=== PATIENT | male | born 1960 | race Two or more races ===

== ENCOUNTER 2021-01-07 09:55 | Outpatient (REF) | payer SELFPAY | END 2021-01-07 09:56 | disposition home or self-care (01) | LOC: HO.SCI 09:55 | PROVIDERS: Visit Provider Internal Medicine Nephrology | DX: Z13.89 Encounter for screening for other disorder (principal) ==

== ENCOUNTER 2021-01-21 15:58 | Outpatient (REF) | payer OTHER, SELFPAY ==
--- NOTE | ~2021-01-21 | US_ITS ---
EXAMINATION: US RETROPERITONEAL COMPLETE (RENAL) CLINICAL INFORMATION: Chronic kidney disease, stage 3. COMPARISON: None TECHNIQUE: Real-time imaging of the kidneys and bladder. FINDINGS: RIGHT KIDNEY: 10.0 x 5.1 x 4.2 cm (SAG x AP x TRV). The kidney is normal in size, contour, and echogenicity. Renal cortical thickness is normal. There is an 8 x 8 x 7 mm cyst in the lower pole. No renal calculi or hydronephrosis. LEFT KIDNEY: 8.7 x 5.1 x 4.5 cm (SAG x AP x TRV). The kidney is normal in size, contour, and echogenicity. Renal cortical thickness is normal. No calculi or focal parenchymal lesions. No hydronephrosis. BLADDER: Well distended. The bladder wall is slightly thickened. No stone or mass is seen. Bilateral ureteral jets are demonstrated. Prevoid bladder volume is 157 mL. Postvoid bladder volume is 45 mL. The prostate gland measures 4.3 x 3.4 x 4 cm. Prostate volume is 30.6 mL. There is central calcification in the prostate gland. US/US retroperitoneal comp IMPRESSION: Small right renal cyst. Slightly thickened bladder wall. 45 mL post void bladder residual. Slightly enlarged prostate gland.
== END 2021-01-21 15:59 | disposition home or self-care (01) ==
LOC: HO.US 15:58
PROVIDERS: Visit Provider Internal Medicine Nephrology
DX: I12.9 Hypertensive chronic kidney disease with stage 1 through stage 4 chronic kidney disease, or unspecified chronic kidney disease (principal); N18.32 Chronic kidney disease, stage 3b
CPT/HCPCS: 76770

== ENCOUNTER 2025-05-29 13:39 | Outpatient (AMB) | payer OTHER, SELFPAY ==
--- NOTE | 2025-05-29 13:44 | A.OFFVIS_ITS ---
Intake Visit Reasons: urinary frequency/ nocturia Intake Note: Patient is present for URINARY FREQUENCY/ NOCTURIA Urology Medication:TAMSULOSIN Antibiotic Allergy:NONE Blood Thinner:ASPIRIN,APIXABAN TODAY'S PVR:0ML'S Patent Prosecution Paralegal Required: Yes Patent Prosecution Paralegal Services: Patent Prosecution Paralegal Present Patent Prosecution Paralegal Name: Dariel [id number] Allergies No Known Allergies Allergy (Verified 05/29/25 14:42) Medication List - Last Reconciled 05/29/25 by MATT BronsonP- amlodipine 10 mg PO DAILY apixaban (Eliquis) 2.5 mg PO BID aspirin 1 tab PO DAILY atorvastatin 40 mg PO DAILY clonidine HCl mg PO gabapentin 300 mg PO TID labetalol mg PO polyethylene glycol 3350 grams PO BID solifenacin (Vesicare) 5 mg PO DAILY 30 days HPI Comments Details: Alexander is a pleasant 65-year-old Setswana-speaking male patient of Dr. Zambrano. He has a past medical history of hypertension, insomnia, ED, fatty liver disease, dissection of thoracic aorta, history of AAA repair, coronary artery disease, DVT, dyslipidemia, spinal cord injury, constipation, stage 3 chronic kidney disease, thrombocytopenia, renal osteodystrophy, anemia, and hyperlipidemia. He presents to the office today as a new patient for ongoing lower urinary tract symptoms he has been experiencing as well as erectile dysfunction. In di scussion with the patient today he reports over the last year he has been experiencing increased episodes of nocturia up to 10 times per night. He reports having followed up with his PCP and recommendations were made for urology referral. He also reports noting erectile dysfunction. He reports he is unable to obtain and or maintain an erection and feels this has been present for many years. Unable to obtain urine for urinalysis today however PVR 0 mL. He reports starting Flomax with his director instructional material January of this year and has not found this helpful. He also describes episodes of urinary urgency throughout the day however feels this is more manageable in comparison to his increased episodes of nocturia. When asked he does report a history of snoring as well as fatigue upon wakening. We did discussed obtaining sleep study for further assessment evaluation as well as retroperitoneal ultrasound. We also discussed obtaining PSA and testosterone for further assessment evaluation. We did discussed lifestyle modifications to assist with ED given patient's recent history cardiac surgery earlier this year in [employer] for repair of his aorta. He reports he is due to follow-up again with cardiology as he might need another surgical procedure. He denies hematuria, dysuria, foul smelling urine, changes to urinary stream, flank pain, fever, and or chills. We did discussed at length potential causes of lower urinary tract symptoms patient is experiencing as well as erectile dysfunction. We discussed further treatment options of these urological conditions and risks and benefits of these treatment options. All questions were answered. He otherwise offers no other issues or concerns at this time. [facility] Medical History (Updated 05/29/25 @ 14:59 by Nghia Carpenter [facility]) DVT, lower extremity DVT of upper extremity (deep vein thrombosis) Paralysis of both lower limbs Urinary incontinence Coronary artery disease involving [place] heart with angina pectoris Dissection of thoracic aorta Decreased GFR Fatty liver disease, nonalcoholic Insomnia Essential hypertension Surgical History (Updated 05/29/25 @ 14:59 by Nghia Carpenter CCM) History of AAA (abdominal aortic aneurysm) repair H/O colonoscopy Review of Systems Const All systems reviewed & are unremarkable except as noted in HPI and below Physical Exam Const General: cooperative, comfortable, no acute distress, well developed, alert and awake Orientation/consciousness: patient oriented x3 Limitations: ambulation with cane HEENT Head: Yes normal to inspection, Yes normocephalic and Yes atraumatic Ears: hearing grossly normal bilaterally Eyes General: appearance normal, both eyes and all related structures Neck Neck: Yes normal visual inspection and Yes trachea midline Chest Chest palpation & inspection: normal inspection of the chest Resp Effort & Inspection: normal respiratory effort and able to speak in complete sentences Cardio Rate: regular rate GI Inspection: Yes normal to inspection General: Yes no CVA tenderness Back/Spine/Pelvis Back: no CVA tenderness Skin General skin exam: no rashes or lesions noted Neuro General: patient oriented x3 Extrem Other: Bilateral lower extremity edema 1+. Sequentials present General: Yes normal to inspection Psych Appearance: grossly normal and well kempt Mental Status: mental status grossly normal Speech and movement: Normal speech and movement present and Clear speech present Affect: normal affect Attitude: cooperative Thought process: Normal thought process present Thought content: Normal thought content present Insight: Fair insight present (Psych) Judgement: Fair judgement present (Psych) Office Procedures Post Void Residual Post Residual Void Post Void Residual (PVR): 0 61537-[id number] Void Residual by ultrasound Assessment & Plan Assessment & Plan (1) Nocturia: Code(s): R35.1 - Nocturia Category: Medical (2) Urinary urgency: Code(s): R39.15 - Urgency of urination Category: Medical (3) Erectile dysfunction: Code(s): N52.9 - Male erectile dysfunction, unspecified Category: Medical Plan Unable to obtain urine for urinalysis today as patient unable to void however PVR 0 mL. We did discussed potential causes of nocturia as well as urinary urgency. We discussed the importance of limiting fluids 2-3 hours prior to bed to decrease episodes of nocturia. Will obtain retroperitoneal ultrasound for further assessment evaluation. Will obtain PSA and testosterone for further assessment evaluation. We discussed importance of elevating legs in the late evening in relation to nocturia. Will obtain sleep study for further assessment evaluation. Stop Flomax. Start VESIcare as discussed and prescribed. All questions were answered. Follow-up in 1-3 months with imaging, labs, and PVR; or sooner with any issues, concerns, and or questions. Orders: Orders AMB Urinalysis Automated Today Z13.9 - Encounter for screening, unspecified US retroperitoneal comp Today R35.1 - Nocturia, R39.15 - Urgency of urination RT home sleep study Today R06.83 - Snoring, R35.1 - Nocturia Prostate Specific Antigen Today R35.1 - Nocturia, R39.15 - Urgency of urination Testosterone, Free/Total Today N52.9 - Male erectile dysfunction, unspecified, R35.1 - Nocturia, R39.15 - Urgency of urination Medications: New solifenacin (Vesicare) 5 mg PO DAILY 30 tabs 3RF 30 days Patient Instructions: The patient had an opportunity to ask questions regarding the treatment plan. All questions were answered. Physical exam, labs, and imaging were discussed and reviewed in detail. As well as risks, benefits, and discussion of treatment choices. No major barriers to understanding were identified. The patient expressed understanding and agreement with the above treatment plan. The patient was made aware they should contact our office by phone for worsening of their current condition, the appearance of new symptoms, or with any questions or concerns. Compliance is encouraged with any medications and follow up testing that is ordered. It is a privilege to be allowed the opportunity to participate in? your urological care.? Again, if you have any questions or concerns If you have any questions or concerns please do not hesitate to contact me. The office is [phone]. This note is constructed using voice recognition software. While every effort has been made to ensure accuracy furnace and wash equipment operator errors may have been included. Yours sincerely, ZEKE Bronson Coding Level of Care Code New Pt Level 4 (82250) Diagnoses Nocturia R35.1 Urinary urgency R39.15 Erectile dysfunction N52.9 CPT Codes Post Residual Void - PVR CPT Code: 38672-Zwha Void Residual by ultrasound ([id number])
--- OUTSIDE RECORDS SUMMARY | 2025-05-29 17:15 | XMS_ITS | Encounter Summary ---
Author Organization [facility] Address [address] [place] [address] Phone Care Team Providers Care Portrait Consultant Name Role Phone Osmel Zambrano PA-C Primary Care Provider Paddy Maya MD Unavailable [phone] Christina Rodriguez Unavailable [phone] Cedric King MD Unavailable [phone] Enoch Jorge MD Unavailable [phone] Laverne Lagos MD Unavailable [phone] Encounter Details Date Type Department Care Team (Late st Contact Info) Description 01/07/2024 Procedure Pass [facility], Abad [address] [facility], 2nd Floor, [address] [place] [address] Social History Tobacco Use Types Packs/Day Years Used Date Smoking Tobacco: Never Smokeless Tobacco: Never Alcohol Use Standard Drinks/Week Comments Never 0 (1 standard drink = 0.6 oz pur e alcohol) Education Answer Date Recorded Are you interested in more education? Not on dean e 12/09/2022 Are you concerned about learning? Not on file 12/09/2022 No 12/09/2022 No 12/09/2022 Digital Access Answer Date Recorded No 01/03/2023 No 01/03/2023 Reliable internet access at home? Not on file 01/03/2023 Device with a working camera? Not on file Intimate Partner Violence Answer Date R ecorded Are you denied basic needs s uch as food, clothing, or medical care? No 01/02/2024 In the past 12 months have y ou been in a relationship with a person who hurts, threatens, or tries to control you? No 01/02/2024 Are you denied basic needs s uch as food, clothing, or medical care? No 01/02/2024 In the past 12 months have y ou been in a relationship with a person who hurts, threatens, or tries to control you? No 01/02/2024 Sex and Gender Information Value Date Recorded Sex Assigned at Not on file Legal Sex Male 10:54 AM EDT Gender Identity Not on file Sexual Orientation Not on file documented as of this encounter Plan of Treatment Upcoming Encounters Date Type Department Care Team (Late st Contact Info) Description 06/18/2025 2:30 PM EST Blood Draw [facility] [address] [place] [address], [facility] Floor, [address] [place] [address] Tristen Hamilton MD, DPHIL [address] [place] [address] [email or web address] 06/18/2025 3:30 PM EST Office Visit [facility] [address] [place] [address], [facility] Floor, [address] [place] [address] Tristen Hamilton MD, DPHIL [address] [place] [address] [email or web address] documented as of this encounter Visit Diagnoses Not on filedocumented in this encounter Additional Health Concerns Infection Onset Date Last Indicated Resolved Time MRSA Comment:Resolved from MRSA Infection Resolution Note 09/11/2022 09/09/2022 09/12/2024 10: 04 AM EST CoV-Risk Comment:Per note documentation 11/07/2024 11/07/2024 2:13 PM EDT documented as of this encounter Care Teams Portrait Consultant Relationship Specialty Start Date End Date Osmel Zambrano PA-C PCP - General 02/22/22 Paddy Maya MD [address] [place] [address] [address] [place] [address] [email or web address] Vascular Surgery 08/03/22 Christina Rodriguez MBBS [address] [place] [address] 652 [place] [address] [email or web address] Thoracic Surgery 08/03/22 Cedric King MD [address] [place] [address] Drive [address] [place] [address] [facility] Facility Psychiatrist Cardiology 08/03/22 Enoch oJrge MD 100 [facility] 200 [place] [address] [email or web address] Nephrology 08/03/22 Laverne Lagos MD [address] [place] [address] [email or web address] Vascular Surgery 08/16/22 documented as of this encounter Additional Source Comments The information contained in this document represents components of the legal health record. It is not the complete legal health record.[facility]
--- OUTSIDE RECORDS SUMMARY | 2025-05-29 17:15 | XMS_ITS | Encounter Summary ---
Author Organization [facility] Address [address] [place] [address] Phone Care Team Providers Care Bobbin Fixer Name Role Phone Osmel Zambrano PA-C Primary Care Provider [phone] Paddy Maya MD Unavailable [phone] Christina Rodriguez Unavailable [phone] Cedric King MD Unavailable [phone] Enoch Jorge MD Unavailable [phone] Laverne Lagos MD Unavailable [phone] Encounter Details Date Type Department Care Team (Late st Contact Info) Description 01/03/2024 Procedure Pass [facility] [address] [place] [id number] Social History Tobacco Use Types Packs/Day Years [...] Description 06/18/2025 2:30 PM EST Blood Draw [facility] [address] [place] [address], [facility] Floor, [address] [place] [address] Tristen Hamilton MD, DPHIL [address] [place] [address] [email or web address] 06/18/2025 3:30 PM EST Office Visit [facility] [address] [place] [address], [facility] Floor, [address] [place] [address] Trsiten Hamilton MD, DPOKL [address] [place] [address] [email or web address] documented as of this encounter Visit Diagnoses Not on filedocumented in this encounter Additional Health Concerns Infection Onset Date Last Indicated Resolved Time MRSA Comment:Resolved from MRSA Infection Resolution Note 09/11/2022 09/09/2022 09/12/2024 10: 04 AM EST CoV-Risk Comment:Per note documentation 11/07/2024 11/07/2024 2:13 PM EDT documented as of this encounter Care Teams Bobbin Fixer Relationship Specialty Start Date End Date Osmel Zambrano PA-C PCP - General 02/22/22 Paddy Maya MD [address] [place] [address] [address] [place] [address] [email or web address] Vascular Surgery 08/03/22 Christina Rodriguez MBBS [address] [place] [address] 6[address] [place] [address] [email or web address] Thoracic Surgery 08/03/22 Cedric King MD [address] [place] [address] Drive [address] [place] [address] Tar Heater Cardiology 08/03/22 Enoch Jorge MD 100 [facility] 200 [place] [address] [email or web address] Nephrology 08/03/22 Laverne Lagos MD [address] [place] [address] [email or web address] Vascular Surgery 08/16/22 documented as of this encounter Additional Source Comments The information contained in this document represents components of the legal health record. It is not the complete legal health record.[facility]
--- OUTSIDE RECORDS SUMMARY | 2025-05-29 17:15 | XMS_ITS | Encounter Summary ---
Author Organization [facility] Address [address] [place] [address] Phone Care Team Providers Care It Program Auditor Name Role Phone Osmel Zambrano PA-C Primary Care Provider Paddy Maya MD Unavailable [phone] Christina Rodriguez Unavailable [phone] Cedric Kign MD Unavailable [phone] Enoch Jorge MD Unavailable [phone] Laverne Lagos MD Unavailable [phone] Encounter Details Date Type Department Care Team (Late st Contact Info) Description 01/02/2024 Procedure Pass [facility] - [facility] Interventional Radiology [address] [place] [address], 4th [place] [address] Social History Tobacco Use Types Packs/Day Years [...] on file documented as of this encounter Functional Status * Calculated C-SSRS Risk Score (Lifetime/Recent) Answer Date of Assessment Author No Risk Indicated 01/02/2024 4:00 PM EDT Oralia Porras RN * [place] Suicide Severity Rating Scale (Screener/Recent Self-Report) Question Answer Date of Assessment Author 1. Wish to be (Past 1 Month) No 024 4:00 PM EDT Oralia Porras RN 2. Non-Specific Active Suici juliano Thoughts (Past 1 Month) No 01/02/2024 4:00 PM EDT Oralia Porras RN 6. Suicidal Behavior (Lifetime) No 4 4:00 PM EDT Oralia Porras RN documented as of this encounter Plan of Treatment Upcoming Encounters Date Type Department Care Team (Late st Contact Info) Description 06/18/2025 2:30 PM EST Blood Draw [facility] [address] [place] [address], 7th Floor, [address] [place] [address] Tristen Hamilton MD, DPHIL [address] [place], [place] [address] [place] [address] [email or web address] 06/18/2025 3:30 PM EST Office Visit [facility] [address] [facility], 7th Floor, [address] [place] [address] Tristen Hamilton MD, DPHIL [address] [place] [address] [email or web address] [place] documented as of this encounter Visit Diagnoses Not on filedocumented in this encounter Additional Health Concerns Infection Onset Date Last Indicated Resolved Time MRSA Comment:Resolved from MRSA Infection Resolution Note 09/11/2022 09/09/2022 09/12/2024 10: 04 AM EST CoV-Risk Comment:Per note documentation 11/07/2024 11/07/2024 2:13 PM EDT documented as of this encounter Care Teams It Program Auditor Relationship Specialty Start Date End Date Osmel Zambrano PA-C PCP - General 02/22/22 Paddy Maya MD 55 [facility] 440 [place] [address] [email or web address] Vascular Surgery 08/03/22 Christina Rodriguez MBBS 55 [facility] 652 [place] [address] [email or web address] Thoracic Surgery 08/03/22 Cedric King MD [address] [place] [address] Etcher Hand Cardiology 08/03/22 Enoch Jorge MD 100 [facility] 200 [place] [address] [email or web address] Nephrology 08/03/22 Laverne Lagos MD [address] [place] [address] [email or web address] Vascular Surgery 08/16/22 documented as of this encounter Additional Source Comments The information contained in this document represents components of the legal health record. It is not the complete legal health record.[facility]
--- OUTSIDE RECORDS SUMMARY | 2025-05-29 17:15 | XMS_ITS | Encounter Summary ---
Author Organization [facility] Address [address] [place] [address] Phone Care Team Providers Care Technical Aide Name Role Phone Osmel Zambrano PA-C Primary Care Provider Paddy Maya MD Unavailable [phone] Christina Rodriguez Unavailable [phone] Cedric King MD Unavailable [phone] Enoch Jorge MD Unavailable [phone] Laverne Lagos MD Unavailable [phone] Encounter Details Date Type Department Care Team (Late st Contact Info) Description 01/02/2024 Procedure Pass [facility] [place] [address] [place] [address] Social History Tobacco Use Types Packs/Day Years [...] 4:00 PM EDT Oralia Porras RN * [place] Suicide Severity Rating Scale (Screener/Recent Self-Report) Question Answer Date of Assessment Author 1. Wish to be (Past 1 Month) No 024 4:00 PM EDT Oralia Porras, HARRY 2. Non-Specific Active Suici juliano Thoughts (Past 1 Month) No 01/02/2024 4:00 PM EDT Oralia Porras, HARRY 6. Suicidal Behavior (Lifetime) No 4 4:00 PM EDT Oralia Porras, HARRY documented as of this encounter Plan of Treatment Upcoming Encounters Date Type Department Care Team (Late st Contact Info) Description 06/18/2025 2:30 PM EST Blood Draw [facility] [address] [place] [address], 7th Floor, [address] [place] [address] Tristen Hamilton MD, DPOKL [address] [place] [address] [email or web address] 06/18/2025 3:30 PM EST Office Visit [facility] [address] [place] [address], 7th Floor, [address] [place] [address] Tristen Hamilton MD, DPHIL 55 [facility] [id number] [place] [address] [email or web address] du documented as of this encounter Visit Diagnoses Not on filedocumented in this encounter Additional Health Concerns Infection Onset Date Last Indicated Resolved Time MRSA Comment:Resolved from MRSA Infection Resolution Note 09/11/2022 09/09/2022 09/12/2024 10: 04 AM EST CoV-Risk Comment:Per note documentation 11/07/2024 11/07/2024 2:13 PM EDT documented as of this encounter Care Teams Technical Aide Relationship Specialty Start Date End Date Osmel Zambrano PA-C PCP - General 02/22/22 Paddy Maya MD [address] [place] [address] [address] [place] [address] [email or web address] Vascular Surgery 08/03/22 Christina Rodriguez MBBS [address] [place] [address] 6[address] [place] [address] [email or web address] Thoracic Surgery 08/03/22 Cedric King MD [address] [place] [address] Drive [address] [place] [address] Nuclear Design Engineer Cardiology 08/03/22 Enoch Jorge MD [address] [place] [address] [email or web address] Nephrology 08/03/22 Laverne Lagos MD [address] [place] [address] [email or web address] Vascular Surgery 08/16/22 documented as of this encounter Additional Source Comments The information contained in this document represents components of the legal health record. It is not the complete legal health record.[facility]
--- OUTSIDE RECORDS SUMMARY | 2025-05-29 17:15 | XMS_ITS | Encounter Summary ---
Author Organization [facility] Address [address] [facility] [address] [place] [address] Phone Care Team Providers Care Mold Maker Name Role Phone Osmel Zambrano PA-C Primary Care Provider [phone] Paddy Maya MD Unavailable + [phone] Christina Rodriguez Unavailable [phone] Cedric King MD Unavailable [phone] Enoch Jorge MD Unavailable [phone] Laverne Lagos MD Unavailable [phone] Reason for Referral * - Closed Specialty Diagnoses / Procedures Referred By Contac t Referred To Contact Radiology Diagnoses Thoracic aortic aneurysm without rupture, unspecified part 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 Procedures US Lower Extremity Arteries (SPARKLE) Physio Limited Bilat US Lower Extremity Arteries (SPARKLE) Physio Limited Unilat Paddy Maya MD Phone: tel: fax: mailto:[email or web address] Referral ID Status Reason Start Date Expiration Date Visits Re quested Visits Authorized [id number] Closed 01/01/2024 12/31/2024 1 1 Encounter Details Date Type Department Care Team (Latest Contact Info) Description 02/08/2024 Ancillary Orders [facility] [address] [facility], 4th Floor, [address] [place] [address] Paddy Maya MD [address] [facility] 440 [place] [address] [email or web address] Thoracic aortic aneurysm without rupture, unspecified part (Primary Dx); Dissection of thoracoabdominal aortic aneurysm (TAAA); 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 nazario documented as of this encounter Results * US Lower Extremity Arteries (SPARKLE) Physio Limited Bil (02/08/2024 3:21 PM EDT) Anatomical Region Laterality Modality Ultrasound 02/08/2024 3:34 PM EDT Narrative 02/09/2024 11:02 PM EDT LOWER EXT PERIPHERAL PVR/SPARKLE INDICATIONS / NOTES: s/p FEVAR; Abdominal Aortic Aneurysm TECHNIQUE: Noninvasive physiologic studies of the lower extremities including segmental pressures and pulse volume recordings was performed. RIGHT: Segmental Pressures Brachial: 133 Posterior Tibial: 154 Dorsalis Pedis: 154 Toe Pressure: 109 Ankle/Brachial Index: 1.16 Toe /Brachial Index: 0.82 LEFT: Segmental Pressures Brachial: 124 Posterior Tibial: 161 Dorsalis Pedis: 153 Toe Pressure: 120 Ankle/Brachial Index: 1.21 Toe /Brachial Index: 0.90 FINDINGS: The ankle/brachial index (SPARKLE) is 1.16 on the right and 1.21 on the left. Pulse volume recordings (PVR) and segmental limb pressures suggest normal lower extremity arterial circulation at rest. IMPRESSIONS: 1. No evidence of significant peripheral arterial disease at rest in the right leg. 2. No evidence of significant peripheral arterial disease at rest in the left leg. 3. The ankle/brachial index is 1.16 on the right and 1.21 on the left 4. The toe/brachial index is 0.82 on the right and 0.90 on the left. 5. Compared to prior from 02/17/22, exam remains stable. ATTESTATION: Ross Crain as teaching physician, have reviewed the images for this case and if necessary edited the report originally created by Sharla Mulligan. Procedure Note Ross Islas MD - 02/09/2024 LOWER EXT PERIPHERAL PVR/SPARKLE INDICATIONS / NOTES: s/p FEVAR; Abdominal Aortic Aneurysm TECHNIQUE: Noninvasive physiologic studies of the lower extremities includingsegmental pressures and pulse volume recordings was performed. RIGHT: Segmental Pressures Brachial: 133 Posterior Tibial: 154 Dorsalis Pedis: 154 Toe Pressure: 109 Ankle/Brachial Index: 1.16 Toe /Brachial Index: 0.82 LEFT: Segmental Pressures Brachial: 124 Posterior Tibial: 161 Dorsalis Pedis: 153 Toe Pressure: 120 Ankle/Brachial Index: 1.21 Toe /Brachial Index: 0.90 FINDINGS: The ankle/brachial index (SPARKLE) is 1.16 on the right and 1.21 on the left.Pulse volume recordings (PVR) and segmental limb pressures suggest normallower extremity arterial circulation at rest. IMPRESSIONS: 1. No evidence of significant peripheral arterial disease at rest in theright leg. 2. No evidence of significant peripheral arterial disease at rest in theleft leg. 3. The ankle/brachial index is 1.16 on the right and 1.21 on the left 4. The toe/brachial index is 0.82 on the right and 0.90 on the left. 5. Compared to prior from 02/17/22, exam remains stable. ATTESTATION: Ross Crain as teaching physician, have reviewed theimages for this case and if necessary edited the report originally createdby Sharla Mulligan. 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 documented in this encounter Additional Health Concerns Infection Onset Date Last Indicated Resolved Time MRSA Comment:Resolved from MRSA Infection Resolution Note 09/11/2022 09/09/2022 09/12/2024 10: 04 AM EST CoV-Risk Comment:Per note documentation 11/07/2024 11/07/2024 2:13 PM EDT documented as of this encounter Care Teams Mold Maker Relationship Specialty Start Date End Date Osmel Zambrano PA-C PCP - General 02/22/22 Paddy Maya MD [address] [place] [address] 440 [place] [address] PAULINO@[email or web address] Vascular Surgery 08/03/22 Christina Rodriguez MBBS [address] [place] [address] 652 [place] [address] CHAY@[email or web address] Thoracic Surgery 08/03/22 Cedric King MD [address] [place] [address] Drive [address] [place] [address] Miner Cardiology 08/03/22 Enoch Jorge MD [facility] [address] [place] [address] [email or web address] Nephrology 08/03/22 Laverne Lagos MD [address] [place] [address] 440 [place] [address] FRED@[email or web address] Vascular Surgery 08/16/22 documented as of this encounter Additional Source Comments The information contained in this document represents components of the legal health record. It is not the complete legal health record.[facility]
--- OUTSIDE RECORDS SUMMARY | 2025-05-29 17:15 | XMS_ITS | Encounter Summary ---
Author Organization [facility] Address [address] [place] [address] Phone Care Team Providers Care Rn Charge Name Role Phone Osmel Zambrano PA-C Primary Care Provider Paddy Maya MD Unavailable [phone] Christina Rodriguez Unavailable [phone] Cedric King MD Unavailable [phone] Enoch Jorge MD Unavailable [phone] Laverne Lagos MD Unavailable [phone] Encounter Details Date Type Department Care Team (Late st Contact Info) Description 01/07/2024 Procedure Pass [facility] [place], Abad 2 [address] [facility], 2nd Floor, [address] [place] [address] Social History Tobacco Use Types Packs/Day Years [...] Description 06/18/2025 2:30 PM EST Blood Draw [facility] [address] [place] [address], [facility] Floor, [address] [place] [address] Tristen Hamilton MD, DPHIL [address] [place] [address] [email or web address] nazario 06/18/2025 3:30 PM EST Office Visit [facility] [address] [place] [address], [facility] Floor, [address] [place] [address] Tristen Hamilton MD, DPHIL [address] [place] [address] JOSE@[email or web address]. nazario documented as of this encounter Visit Diagnoses Not on filedocumented in this encounter Additional Health Concerns Infection Onset Date Last Indicated Resolved Time MRSA Comment:Resolved from MRSA Infection Resolution Note 09/11/2022 09/09/2022 09/12/2024 10: 04 AM EST CoV-Risk Comment:Per note documentation 11/07/2024 11/07/2024 2:13 PM EDT documented as of this encounter Care Teams Rn Charge Relationship Specialty Start Date End Date Osmel Zambrano PA-C PCP - General 02/22/22 Paddy Maya MD [address] [place] [address] 440 [place] [address] [email or web address] Vascular Surgery 08/03/22 Christina Rodriguez MBBS [address] [place] [address] 652 [place] [address] CHAY@[email or web address] Thoracic Surgery 08/03/22 Cedric King MD [address] [place] [address] Drive [address] [place] [address] Lead Ruby On Rails Developer Cardiology 08/03/22 Enoch Jorge MD 100 [facility] 200 [place] [address] [email or web address] Nephrology 08/03/22 Laverne Lagos MD [address] [place] [address] FRED@[email or web address] Vascular Surgery 08/16/22 documented as of this encounter Additional Source Comments The information contained in this document represents components of the legal health record. It is not the complete legal health record.[facility]
--- OUTSIDE RECORDS SUMMARY | 2025-05-29 17:15 | XMS_ITS | Encounter Summary ---
Author Organization [facility] Address [address] [place] [address] Phone Care Team Providers Care Faculty Research Physician Name Role Phone Unknown, Unknown Primary Care Provider Osmel Rojas PA-C Primary Care Provider [phone] Paddy Maya MD Unavailable [phone] Christina Rodriguez Unavailable [phone] Cedric King MD Unavailable [phone] Enoch Jorge MD Unavailable [phone] Laverne Lagos MD Unavailable [phone] Encounter Details Date Type Department Care Team (Late st Contact Info) Description 02/16/2022 Procedure Pass [facility], Abad [address] [facility], 2nd Floor, [address] [place] [address] Social History Tobacco Use Types Packs/Day Years Used Date Smoking Tobacco: Never Assessed Sex and Gender Information Value Date Recorded Sex Assigned at Not on file Legal Sex Male 10:54 AM EDT Gender Identity Not on file Sexual Orientation Not on file documented as of this encounter Plan of Treatment Upcoming Encounters Date Type Department Care Team (Late st Contact Info) Description 06/18/2025 2:30 PM EST Blood Draw [facility] for [facility]ology [address] [facility], 7th Floor, [address] [place] [address] Tristen Hamilton MD, DPHIL [id number] [place] [address] JOSE@[email or web address]. nazario 06/18/2025 3:30 PM EST Office Visit [facility] [address] [facility], 7th Floor, [address] [place] [address] Tristen Hamilton MD, DPHIL [id number] [place] [address] JOSE@[email or web address]. du documented as of this encounter Visit Diagnoses Not on filedocumented in this encounter Additional Health Concerns Infection Onset Date Last Indicated Resolved Time MRSA Comment:Resolved from MRSA Infection Resolution Note 09/11/2022 09/09/2022 09/12/2024 10: 04 AM EST CoV-Risk Comment:Per note documentation 11/07/2024 11/07/2024 2:13 PM EDT documented as of this encounter Care Teams Faculty Research Physician Relationship Specialty Start Date End Date Unknown, Unknown, PCP - General 12/20/21 02/21/22 Osmel Zambrano PA-C PCP - General 02/22/22 Paddy Maya MD [address] [place] [address] PAULINO@[email or web address] Vascular Surgery 08/03/22 Christina Rodriguez MBBS [address] [place] [address] 652 [place] [address] CHAY@[email or web address] Thoracic Surgery 08/03/22 Cedric King MD [address] [place] [address] [address] [place] [address] Telephone Interceptor Operator Cardiology 08/03/22 Enoch Jorge MD [address] [place] [address] [email or web address] Nephrology 08/03/22 Laverne Lagos MD [address] [place] [address] FRED@[email or web address] Vascular Surgery 08/16/22 documented as of this encounter Additional Source Comments The information contained in this document represents components of the legal health record. It is not the complete legal health record.[facility]
--- OUTSIDE RECORDS SUMMARY | 2025-05-29 17:15 | XMS_ITS | Encounter Summary ---
Author Organization [facility] Address [address] [place] [address] Phone Care Team Providers Care Director Sales Support Name Role Phone Osmel Zambrano PA-C Primary Care Provider [phone] Paddy Maya MD Unavailable [phone] Christina Rodriguez Unavailable [phone] Cedric King MD Unavailable [phone] Enoch Jorge MD Unavailable [phone] Laverne Lagos MD Unavailable [phone] Encounter Details Date Type Department Care Team (Late st Contact Info) Description 09/04/2024 Procedure Pass [facility] PERIOPERATIVE DEPT 55 [place] [id number] Social History Tobacco Use Types Packs/Day Years [...] as food, clothing, or medical care? No 09/03/2024 In the past 12 months have y ou been in a relationship with a person who hurts, threatens, or tries to control you? No 09/03/2024 Are you denied basic needs s uch as food, clothing, or medical care? No 09/03/2024 In the past 12 months have y ou been in a relationship with a person who hurts, threatens, or tries to control you? No 09/03/2024 Sex and Gender Information Value Date Recorded Sex Assigned at Not on file Legal Sex Male 10:54 AM EDT Gender Identity Not on file Sexual Orientation Not on file documented as of this encounter Plan of Treatment Upcoming Encounters Date Type Department Care Team (Late st Contact Info) Description 06/18/2025 2:30 PM EST Blood Draw [facility] Center for Hematology [address] [place] [address], [facility] Floor, [address] [place] [address] Tristen Hamilton MD, DPHIL [address] [place] [address] [email or web address] nazario 06/18/2025 3:30 PM EST Office Visit [facility] Center for Hematology [address] [place] [address], [facility] Floor, [address] [place] [address] Tristen Hamilton MD, DPNDL [address] [place] [address] JOSE@[email or web address] nazario documented as of this encounter Visit Diagnoses Not on filedocumented in this encounter Additional Health Concerns Infection Onset Date Last Indicated Resolved Time MRSA Comment:Resolved from MRSA Infection Resolution Note 09/11/2022 09/09/2022 09/12/2024 10: 04 AM EST CoV-Risk Comment:Per note documentation 11/07/2024 11/07/2024 2:13 PM EDT documented as of this encounter Care Teams Director Sales Support Relationship Specialty Start Date End Date Osmel Zambrano PA-C PCP - General 02/22/22 Paddy Maya MD [address] [place] [address] [address] [place] [address] PAULINO@[email or web address] Vascular Surgery 08/03/22 Christina Rodriguez MBBS [address] [place] [address] 652 [place] [address] CHAY@[email or web address] Thoracic Surgery 08/03/22 Cedric King MD [address] [place] [address] Drive [address] [place] [address] Molding Line Assistant Cardiology 08/03/22 Enoch Jorge MD 100 [facility] 200 [place] [address] [email or web address] Nephrology 08/03/22 Laverne Lagos MD [address] [place] [address] FRED@[email or web address] Vascular Surgery 08/16/22 documented as of this encounter Additional Source Comments The information contained in this document represents components of the legal health record. It is not the complete legal health record.[facility]
--- OUTSIDE RECORDS SUMMARY | 2025-05-29 17:15 | XMS_ITS | Encounter Summary ---
Author Organization [facility] Address [address] [place] [address] Phone Care Team Providers Care Occupational Health Professional Name Role Phone Osmel Zambrano PA-C Primary Care Provider Paddy Maya MD Unavailable [phone] Christina Rodriguez Unavailable [phone] Cedric King MD Unavailable [phone] Enohc Jorge MD Unavailable [phone] Laverne Lagos MD Unavailable [phone] Encounter Details Date Type Department Care Team (Late st Contact Info) Description 01/03/2024 Procedure Pass [facility] Cardiac US [address] [place] [address] Social History Tobacco Use Types Packs/Day Years [...] Description 06/18/2025 2:30 PM EST Blood Draw [facility] Center for Hematology [address] [place] [address], [facility] Floor, [address] [place] [address] Tristen Hamilton MD, DPHIL [address] [place] [address] [email or web address] nazario 06/18/2025 3:30 PM EST Office Visit [facility] Center for Hematology [address] [place] [address], [facility] Floor, [address] [place] [address] Tristen Hamilton MD, DPMOL [address] [place] [address] JOSE@[email or web address] nazario documented as of this encounter Visit Diagnoses Not on filedocumented in this encounter Additional Health Concerns Infection Onset Date Last Indicated Resolved Time MRSA Comment:Resolved from MRSA Infection Resolution Note 09/11/2022 09/09/2022 09/12/2024 10: 04 AM EST CoV-Risk Comment:Per note documentation 11/07/2024 11/07/2024 2:13 PM EDT documented as of this encounter Care Teams Occupational Health Professional Relationship Specialty Start Date End Date Osmel Zambrano PA-C PCP - General 02/22/22 Paddy Maya MD 55 [facility] 440 [place] [address] PAULINO@[email or web address] Vascular Surgery 08/03/22 Christina Rodriguez MBBS [address] [place] [address] 652 [place] [address] CHAY@[email or web address] Thoracic Surgery 08/03/22 Cedric iKng MD [address] [place] [address] Drive [address] [place] [address] Title Insurance Examiner Cardiology 08/03/22 Enoch Jorge MD 100 [facility] 200 [place] [address] [email or web address] Nephrology 08/03/22 Laverne Lagos MD [address] [place] [address] 440 [place] [address] [email or web address] Vascular Surgery 08/16/22 documented as of this encounter Additional Source Comments The information contained in this document represents components of the legal health record. It is not the complete legal health record.[facility]
--- OUTSIDE RECORDS SUMMARY | 2025-05-29 17:15 | XMS_ITS | Clinical Summary ---
Author Organization [facility] Address [address] [place] [address] Care Team Providers Care Car Salter Name Role Phone Unknown Primary Care Provider [phone] Social History Tobacco Use Types Packs/Day Years Used Date Smoking Tobacco: Never Assessed Sex and Gender Information Value Date Recorded Sex Assigned at Not on file Legal Sex Male 8:43 PM EDT Gender Identity Not on file Sexual Orientation Not on file Plan of Treatment Health Maintenance Due Date Last Done Comments Advance Care Planning 1960 Hepatitis C Virus Screening 1960 DTaP/Tdap/Td Vaccines (1 - Tdap) 1978 Colonoscopy 2004 Pneumococcal Vaccines 50+ (1 of 1 - PCV) 2009 Zoster (Shingles) Vaccine (1 of 2) 2009 Influenza Vaccine 03/14/2025 COVID-19 Vaccine ( - 2023-2 5 season) 2025 RSV Vaccine 50 years and old er and Patients (1 - 1-dose 75+ series) 2034 Hepatitis B Vaccines Aged Out No long er eligible based on patient's age to complete this topic Insurance MISC MGD MEDICARE OUT OF NETWORK Member Subscriber Plan / Payer (Ef fective for All Dates) Name:Alexander Morales Relation to Subscriber:Self Name:Alexander Morales Payer ID:Not on file Group ID:Not on file Type:Not on file Address: [address] [place] [id number] Care Teams Car Salter Relationship Specialty Start Date End Date Unknown Unknow Provider Address PCP - General 11/06/24
--- OUTSIDE RECORDS SUMMARY | 2025-05-29 17:15 | XMS_ITS | Encounter Summary ---
Author Organization [facility] Address [address] [place] [address] Phone Care Team Providers Care Trainer Name Role Phone Osmel Zambrano PA-C Primary Care Provider Paddy Maya MD Unavailable [phone] Christina Rodriguez Unavailable [phone] Cedric King MD Unavailable [phone] Enoch Jorge MD Unavailable [phone] Laverne Lagos MD Unavailable [phone] Encounter Details Date Type Department Care Team (Late st Contact Info) Description 01/02/2024 Procedure Pass [facility] [place], Ab[place] 2 55 [facility], 2nd Floor, [address] [place] [address] Social History Tobacco Use Types Packs/Day Years [...] 4:00 PM EDT Oralia Porras RN * [place] Suicide Severity Rating Scale (Screener/Recent Self-Report) Question [...] Description 06/18/2025 2:30 PM EST Blood Draw [facility] for [facility] [address] [place] [address], 7th Floor, [address] [place] [address] Tristen Hamilton MD, DPHIL [address] [place], [place] [address] [place] [address] JOSE@[email or web address] nazario 06/18/2025 3:30 PM EST Office Visit [facility] [address] [facility], 7th Floor, [address] [place] [address] Tristen Hamilton MD, DPHIL [address] [place] [address] JOSE@[email or web address]. du documented as of this encounter Visit Diagnoses Not on filedocumented in this encounter Additional Health Concerns Infection Onset Date Last Indicated Resolved Time MRSA Comment:Resolved from MRSA Infection Resolution Note 09/11/2022 09/09/2022 09/12/2024 10: 04 AM EST CoV-Risk Comment:Per note documentation 11/07/2024 11/07/2024 2:13 PM EDT documented as of this encounter Care Teams Trainer Relationship Specialty Start Date End Date Osmel Zambrano PA-C PCP - General 02/22/22 Paddy Maya MD 55 [facility] 440 [place] [address] PAULINO@[email or web address] Vascular Surgery 08/03/22 Christina Rodriguez MBBS 55 [facility] 652 [place] [address] CHAY@[email or web address] Thoracic Surgery 08/03/22 Cedric King MD 2 [facility] [address] [place] [address] Warehouse Traffic Supervisor Cardiology 08/03/22 Enoch Jorge MD 100 [facility] 200 [place] [address] [email or web address] Nephrology 08/03/22 Laverne Lagos MD [address] [place] [address] FRED@[email or web address] Vascular Surgery 08/16/22 documented as of this encounter Additional Source Comments The information contained in this document represents components of the legal health record. It is not the complete legal health record.[facility]
--- OUTSIDE RECORDS SUMMARY | 2025-05-29 17:16 | XMS_ITS | Encounter Summary ---
Author Organization [facility] Address [address] [facility] [address] [place] [address] Phone Care Team Providers Care Topper Press Operator Automatic Name Role Phone Osmel Zambrano PA-C Primary Care Provider Paddy Maya MD Unavailable [phone] Christina Rodriguez Unavailable [phone] Cedric King MD Unavailable [phone] Enoch Jorge MD Unavailable [phone] Laverne Lagos MD Unavailable [phone] Encounter Details Date Type Department Care Team (Late st Contact Info) Description 01/01/2024 Procedure Pass [facility] [place] [address] [facility], 6th [place] [address] Social History Tobacco Use Types Packs/Day Years [...] 4:00 PM EDT Oralia Porras RN * Humphreys Suicide Severity Rating Scale (Screener/Recent Self-Report) Question [...] 06/18/2025 2:30 PM EST Blood Draw [facility] [address] [place] [address], 7th Floor, [address] [place] [id number] Tristen Hamilton MD, DPHIL [address] [place], [place] [id number] [place] [address] [email or web address] 06/18/2025 3:30 PM EST Office Visit [facility] [address] [facility], 7th Floor, [address] [place] [address] Tristen Hamilton MD, DPHIL [address] [place] [address] [email or web address] documented as of this encounter Visit Diagnoses Not on filedocumented in this encounter Additional Health Concerns Infection Onset Date Last Indicated Resolved Time MRSA Comment:Resolved from MRSA Infection Resolution Note 09/11/2022 09/09/2022 09/12/2024 10: 04 AM EST CoV-Risk Comment:Per note documentation 11/07/2024 11/07/2024 2:13 PM EDT documented as of this encounter Care Teams Topper Press Operator Automatic Relationship Specialty Start Date End Date Osmel Zambrano PA-C PCP - General 02/22/22 Paddy Maya MD [address] [facility] [address] [place] [address] [email or web address] Vascular Surgery 08/03/22 Christina Rodriguez MBBS [address] [place] [address] [address] [place] [address] [email or web address] Thoracic Surgery 08/03/22 Cedric King MD [address] [place] [address] Drive [address] [place] [address] [facility] Cardiology 08/03/22 Enoch Jorge MD [address] [place] [address] [email or web address] 08/03/22 Laverne Lagos MD [address] [place] [address] [email or web address] Vascular Surgery 08/16/22 documented as of this encounter Additional Source Comments The information contained in this document represents components of the legal health record. It is not the complete legal health record.[facility]
--- OUTSIDE RECORDS SUMMARY | 2025-05-29 17:16 | XMS_ITS | Clinical Summary ---
Author Organization [facility] Address [address] [facility] [address] [place] [address] Phone Care Team Providers Care Teller Name Role Phone Osmel Zambrano PA-C Primary Care Provider Allergies Active Allergy Reactions Criticality Noted Date Comments Morphine Other (see comments) High 02/15/2022 Other reaction(s): Hallucinations hallucinations Other reaction(s): Morphine allergy Other reaction(s): Hallucinations hallucinations hallucinations Medications gabapentin (NEURONTIN) 300 MG capsule TAKE 1 CAPSULE BY MOUTH THREE TIMES DAILY 11/10/2020 Active polyethylene glycol (GLYCOLAX) 17 g packet MIX THE CONTENTS OF 1 PACKET INTO A 8 OUNCE GLASS OF WATER AND DRINK BY MOUTH TWICE DAILY 11/20/2020 Active amLODIPine (NORVASC) 10 MG tablet Take 10 mg by mouth 1 (one) time each day 12/20/2021 Active Eliquis 2.5 MG tablet 06/21/2023 Active labetalol (NORMODYNE) 200 MG tablet Take 200 mg by mouth in the morning. 12/16/2022 Active atorvastatin (LIPITOR) 40 MG tablet Take 40 mg by mouth in the morning. 12/04/2024 Active cloNIDine (CATAPRES) 0.3 MG tablet Take 0.3 mg by mouth in the morning and 0.3 mg in the evening. Active aspirin (ST NEETA) 81 MG EC tablet Take 81 mg by mouth 1 (one) time each day Active acetaminophen (TYLENOL) 500 MG tablet Take by mouth every 4 (four) hours Active tamsulosin (FLOMAX) 0.4 MG 24 hr capsule TAKE 1 CAPSULE(0.4 MG) BY MOUTH 1 TIME EACH DAY 90 capsule 03/17/2025 Active Active Problems Problem Noted Date Diagnosed Date Thoracoabdominal aortic aneurysm 09/09/2022 07/18/2023 Overview (07/18/2023): Last Assessment & Plan: Reason for ICU admit: Neck bleeding Neuro: #Pain # Chronic back pain - tylenol prn, oxycodone prn, prn dilaudid - Home gabapentin LLE slightly weaker at baseline , walks with cane Pulmonary: #Neck Hematoma Had ongoing bleeding after ATILIO drain removed. Taken to OR for exploration 2/3 - appreciate heme recs: maintain fibrinogen >100 and transfuse cryoprecipitate as needed, 150 for bleeding - 2/3 TEG with concern for hypofibrinogemia despite normal levels, repeat 10/07 with hypofibrinogemia despite normal fibrinogen level - last fibrinogen 09/18: 178. 2/6 AM 107. F/u heme recs #Airway bleeding (resolved) While intubated 09/11 found to have bleeding in airway filling circuit. Bronch with blood in airway, but not coming from lower bronchus. No blood visible on glide scope. ? Secondary to coagulopathy - treat general coagulopathy - TXA nebs completed CV: # Hypertension SBP goal liberalized to <160 per vascular 09/19 - Switch atenolol 50mg BID to Labetalol 300 mg Q8H PO, home amlodipine 10 mg PO - Continue increased valsartan 320 mg daily (increased 09/18) - Clonidine 0.3mg TID (increased 09/18) - Hydral 75mg q6h (increased 09/17) - Nicardipine infusion with goal SBP <160 - cardiology consulted, recs appreciated - monitor for bradycardia #Aortic dissection s/p left carotid-vertebral transposition (09/09, Demond), and plan for a carotid-subclavian bypass - TEVAR 09/12 cancelled d/t neck hematoma and intubation. Defer spinal drain. [] Likely deferring operative plans to outpatient setting #CAD- S/p CABG. 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 Please make sure patient has appointment arranged for close follow-up following discharge. Recommend 3-[address] Jonah Stevens and Dr. Taveras (fellow) at [facility]. See media tab. Prophylaxis: - DVT: None --- Mechanical: SCDs --- Chemical: None - GI: pantoprazole - Bowel regimen: N/A, start when giving enteral meds - Mouth Care: chlorhexidine Dispo: ICU for monitoring Code: Full Code Last Assessment & Plan: Reason for ICU admit: Neck bleeding Neuro: #Pain # Chronic back pain - tylenol prn, oxycodone prn, prn dilaudid - Home gabapentin LLE slightly weaker at baseline , walks with cane Pulmonary: #Neck Hematoma Had ongoing bleeding after ATILIO drain removed. Taken to OR for exploration 2/3 - appreciate heme recs: maintain fibrinogen >100 and transfuse cryoprecipitate as needed, 150 for bleeding - 2/3 TEG with concern for hypofibrinogemia despite normal levels, repeat 10/07 with hypofibrinogemia despite normal fibrinogen level - last fibrinogen 09/18: 178. 2/6 AM 107. F/u heme recs #Airway bleeding (resolved) While intubated 09/11 found to have bleeding in airway filling circuit. Bronch with blood in airway, but not coming from lower bronchus. No blood visible on glide scope. ? Secondary to coagulopathy - treat general coagulopathy - TXA nebs completed CV: # Hypertension SBP goal liberalized to <160 per vascular 09/19 - Switch atenolol 50mg BID to Labetalol 300 mg Q8H PO, home amlodipine 10 mg PO - Continue increased valsartan 320 mg daily (increased 09/18) - Clonidine 0.3mg TID (increased 09/18) - Hydral 75mg q6h (increased 09/17) - Nicardipine infusion with goal SBP <160 - cardiology consulted, recs appreciated - monitor for bradycardia #Aortic dissection s/p left carotid-vertebral transposition (09/09, Demond), and plan for a carotid-subclavian bypass - TEVAR 09/12 cancelled d/t neck hematoma and intubation. Defer spinal drain. [] Likely deferring operative plans to outpatient setting #CAD- S/p CABG. 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 Please make sure patient has appointment arranged for close follow-up following discharge. Recommend 3-[address] Jonah Stevens and Dr. Taveras (fellow) at [facility]. See media tab. Prophylaxis: - DVT: None --- Mechanical: SCDs --- Chemical: None - GI: pantoprazole - Bowel regimen: N/A, start when giving enteral meds - Mouth Care: chlorhexidine Dispo: ICU for monitoring Code: Full Code Anemia 07/27/2022 Aneurysm of aorta 07/27/2022 Thoracic cord injury without spinal bone injury 01/19/2022 Platelet count below reference range 01/19/2022 Peripheral neuritis 01/19/2022 Stage 3a chronic kidney disease 05/07/2021 Stage 3b chronic kidney disease 11/27/2020 Hypertensive chronic kidney disease 11/27/2020 Renal osteodystrophy 11/27/2020 Serum creatinine above reference range Overview (11/27/2020): Referred to Plant Changer Glomerular filtration rate below reference range 09/16/2016 Resolved Problems Problem Noted Date Diagnosed Date Resolved Date Chronic kidney disease due t o benign hypertension 12/29/2020 03/30/2021 Erectile dysfunction 11/27/2020 021 Essential hypertension 11/27/202003/30 Insomnia 11/27/2020 03/30/2021 Bruises easily 01/24/2020 03/30/2021 Slow transit constipation 01/24/2020 History of spinal cord injury 10/04/2019 03/30/2021 Overview (11/27/2020): T5-T6 spinal cord injury secondary to Aortic dissection S/P repair May 2017. Sees [facility] for pain management Advance directive discussed with patient 11/02/2017 03/30/2021 Overview (11/27/2020): [facility] - 02-13-18 functioanl disorder of bladder Hyperactivity of the bladder Follow up 3 to 4 months For reassessment Deep venous thrombosis of upper extremity 07/28/2017 03/30/2021 Overview (11/27/2020): U/S of upper extremties 06/06/2017 showed Right subclavian,Axillary and Basilic vein thrombosis. On coumadin. Pt follow with Vascular surgeon at [facility]. His Coumadin is managed by vascular Acute embolism and thrombosi s of unspecified deep veins of unspecified lower extremity 07/28/2017 03/30/2021 Overview (11/27/2020): U/S of lower extremities at [facility] left showed Posterior tibial vein Thrombosis. On Coumadin. Pt is followed by vascular surgeon at [facility] Dyslipidemia 07/28/2017 03/30/2021 Coronary atherosclerosis 06/07/2017 Overview (11/27/2020): CAD with Bypass graft x 1 using saphenous vein graft to RCA Dissection of thoracic aorta 06/07/2017 03/30/2021 Overview (11/27/2020): 06/05/17 - AAA repaired at [facility] Dr. Schwartz. Pt. Had flank pain and proceeded to [facility] where CAT showed Type A aortic dissection involving ascending aorta . Post-op weakness in bilateral lower extremities suspected ischemic cord injury. History of repair of aneurys m of abdominal aorta 06/07/2017 03/30/2021 Paraparesis 06/07/2017 03/30/2021 Overview (11/27/2020): 06/05/17 following due to ischemic injury AAA with surgical repair. Urinary incontinence 06/07/2017 021 History of colonoscopy 09/08/201603/30 Overview (11/27/2020): Colonoscopy 08/31/16 at [facility] by Dr Mikey Tracy. Negative colonoscopy; repeat 10 years. Metabolic dysfunction-associ ated steatotic liver disease 08/27/2015 03/30/2021 Overview (11/27/2020): 09/04/15 [facility] Encounters Date Type Department Care Team Description 04/02/2025 Orders Only [facility] [address] [id number] Enoch Jorge MD 04/01/2025 9:15 AM EDT Office Visit [facility] [address] [place] [phone] Janett Vick ARNP Stage 3a chronic kidney disease (HCC) (Primary Dx); Hypertensive chronic kidney disease; Anemia in chronic kidney disease 03/17/2025 Refill [facility] [address] [address] Enoch Jorge MD from Last 3 Months Immunizations Immunization Administration Dates Next Due Moderna SARS-COV-2 07/16/2021,12/21/2020, 021 Shingrix 09/01/2021,10/07/2020 Zoster 10/07/2020 Family History Medical History Relation Comments Hypertension Father Hypertension Mother Relation Status Comments Father Mother Social History Tobacco Use Types Packs/Day Years Used Date Smoking Tobacco: Never Smokeless Tobacco: Never Alcohol Use Standard Drinks/Week Comments Not Currently 0 (1 standard drink = 0.6 oz pur e alcohol) Sex and Gender Information Value Date Recorded Sex Assigned at Not on file Legal Sex Male 11:59 AM EDT Gender Identity Not on file Sexual Orientation Not on file Last Filed Vital Signs Vital Sign Reading Time Taken Comments Blood Pressure 118/50 04/01/2025 9:23 AM EDT Pulse 78 04/01/2025 9:23 AM EDT Temperature - - Respiratory Rate - - Oxygen Saturation 98% 04/01/2025 9:23 AM EDT Inhaled Oxygen Concentration - - Weight 56.5 kg (124 lb 9.6 oz) 04/01/2025 9:23 A M EDT Height 160 cm (5' 3 ) 01/24/2023 2:38 PM EDT Body Mass Index 22.07 01/24/2023 2:38 PM EDT Plan of Treatment Upcoming Encounters Date Type Department Care Team (Late st Contact Info) Description 10/02/2025 10:00 AM EST Office [facility] [address] [phone] Janett Vick ARNP [address] [address] Health Maintenance Due Date Last Done Comments Pneumococcal Vaccine: 50+ Ye ars (1 of 2 - PCV) 1978 Colorectal Cancer Screening: Annual FOBT 2008 Colorectal Cancer Screening: Sigmoidoscopy 2008 Influenza Vaccine (#1) 2025 Colorectal Cancer Screening: Colonoscopy 03/30/2031 03/30/2021 Hepatitis B Vaccine Aged Out No longe r eligible based on patient's age to complete this topic Procedures Procedure Name Priority Date/Time Associated Diagnosis Comments URINE ALBUMIN / CREATININE RATIO Routine 04/02/2025 12:00 PM EDT PROTEIN / CREATININE RATIO, URINE Routine 04/02/2025 12:00 PM EDT URINALYSIS WITH MICROSCOPIC Routine 04/02/2025 12:00 PM EDT MICROSCOPIC EXAMINATION - DO NOT USE Routine 04/02/2025 12:00 PM EDT KAPPA/LAMBDA FREE LT CHAINS W/RATIO Routine 04/01/2025 10:27 AM EDT URINE ALBUMIN / CREATININE RATIO Routine 04/01/2025 10:27 AM EDT PROTEIN / CREATININE RATIO, URINE Routine 04/01/2025 10:27 AM EDT IMMUNOFIXATION ELECTROPHORESIS Routine 04/01/2025 10:27 AM EDT IRON PANEL (FE, TIBC, TSAT) Routine 04/01/2025 10:27 AM EDT RENAL FUNCTION PANEL Routine 04/01/2025 10:27 AM EDT URINALYSIS WITH MICROSCOPIC Routine 04/01/2025 10:27 AM EDT CBC AND DIFFERENTIAL Routine 04/01/2025 10:27 AM EDT from Last 3 Months Results * Microscopic Examination (04/02/2025 12:00 PM EDT) WBC, Urine None seen 0 - 5 /hpf [facility] RBC, Urine None seen 0 - 2 /hpf [facility] Squamous Epithelial, Urine None seen 0 - 10 /hpf [facility] Casts None seen None seen /lpf [facility] Mucous Threads Present Not Estab. [facility] Bacteria, Urine None seen None seen/Few [facility] 04/02/2025 12:0 0 PM EDT 04/02/2025 us Enoch Jorge MD LAB MICROBIOLOGY - GENERAL OR DERABLES Final Result [facility] [address] [place] [address] * (ABNORMAL) Protein, Total, Random Urine w/Creatinine (Protein/Creat Ratio) (04/02/2025 12:00 PM EDT) Creatinine, Ur 76.4 Not Estab. mg/dL [facility] Protein, Ur 95.5 Not Estab. mg/dL [facility] Urine Protein/Creati nine Ratio 1,250(H) 0 - 200 mg/g creat [facility] 04/02/2025 12:0 0 PM EDT 04/02/2025 Enoch Jorge MD LAB URINE ORDERABLES Final Re sult Performing Organization Address [facility]/ZIP Co de Phone Number [facility] [address] [place] [address] * (ABNORMAL) Urine Albumin / Creatinine Ratio (04/02/2025 12:00 PM EDT) Albumin, Urine 502.1 Not Estab. ug/mL [facility] Comment: Results confirmed on dilution. Albumin/Creatin ine Ratio 657(H) 0 - 29 mg/g creat [facility] Comment: Normal: 0 - 29 Moderately increased: 30 - 300 Severely increased: >300 04/02/2025 12:0 0 PM EDT 04/02/2025 Enoch Jorge MD LAB URINE ORDERABLES Final Re sult Performing Organization Address [facility] de Phone Number [facility] [address] [place] [address] * (ABNORMAL) Urinalysis with microscopic (04/02/2025 12:00 PM EDT) Pathologist [facility] Specific [place], Urine 1.017 1.005 - 1.030 [facility] [phone] pH Urine 7.0 5.0 - 7.5 [facility] [phone] Color, Urine Yellow Yellow [facility] [phone] Appearance Urine Clear Clear [facility] [phone] WBC Esterase Urine Negative Negative [facility] [phone] Protein, Ur 2+(A) Negative/Tra ce [facility] Glucose, Ur Negative Negative [facility] [phone] Ketones, Urine Negative Negative [facility] [phone] Blood Urine Negative Negative [facility] Bilirubin Urine Negative Negative [facility] [phone] Urobilinogen Urine 1.0 0.2 - 1.0 mg/dL [facility] Nitrite, Urine Negative Negative [facility] [phone] Microscopic Examination See below: [facility] Comment:Microscopic was cyndy cated and was performed. 04/02/2025 12:0 0 PM EDT 04/02/2025 Enoch Jorge MD LAB URINE ORDERABLES Final Re sult Performing Organization Address [facility] Co de Phone Number [facility] [address] [place] [address] * (ABNORMAL) Iron Panel (Fe, TIBC, TSAT) (04/01/2025 10:27 AM EDT) TIBC 197(L) 250 - 450 ug/dL [facility] UIBC 177 111 - 343 ug/dL [facility] Iron 20(L) 38 - 169 ug/dL [facility] Iron Saturation (TSat) 10(L) 15 - 55 % [facility] 04/01/2025 10:2 7 AM EDT 04/01/2025 Enoch Jorge MD LAB BLOOD ORDERABLES Final Re sult Performing Organization Address City/[facility]/ZIP Co de Phone Number [facility] [address] [place] [address] * (ABNORMAL) [place]/Lambda free LT chains w/ratio, Serum (04/01/2025 10:27 AM EDT) Free [place] Lt Chains, S 80.8(H) 3.3 - 19.4 mg/L [facility] Free Lambda Lt Chains, S 71.4(H) 5.7 - 26.3 mg/L [facility] Free [place]/Lambda Ratio 1.13 0.26 - 1.65 [facility] 04/01/2025 10:2 7 AM EDT 04/01/2025 us Enoch Jorge MD LAB BLOOD ORDERABLES Final Re sult [facility] [address] [place] [address] * (ABNORMAL) CBC and Differential (04/01/2025 10:27 AM EDT) WBC 5.8 3.4 - 10.8 x10E3/uL [facility] RBC 3.59(L) 4.14 - 5.80 x10E6/uL [facility] Hemoglobin 9.3(L) 13.0 - 17.7 g/dL [facility] Hematocrit 31.5(L) 37.5 - 51.0 % [facility] MCV 88 79 - 97 fL [facility] MCH 25.9(L) 26.6 - 33.0 pg [facility] MCHC 29.5(L) 31.5 - 35.7 g/dL [facility] RDW 18.7(H) 11.6 - 15.4 % [facility] Platelets 207 150 - 450 x10E3/uL [facility] Neutrophils Relative 66 Not Estab. % [facility] Lymphocytes Relative 23 Not Estab. % [facility] Monocytes 10 Not Estab. % [facility] Eosinophils Relative 1 Not Estab. % [facility] Basophils Relative 0 Not Estab. % [facility] Neutrophils Absolute 3.8 1.4 - 7.0 x10E3/uL [facility] Lymphocytes Absolute 1.3 0.7 - 3.1 x10E3/uL [facility] Monocytes Absolute 0.6 0.1 - 0.9 x10E3/uL [facility] Eosinophils Absolute 0.1 0.0 - 0.4 x10E3/uL [facility] Basophils Absolute 0.0 0.0 - 0.2 x10E3/uL [facility] Immature Granulocytes 0 Not Estab. % [facility] Immature Grans (Absolute) 0.0 0.0 - 0.1 x10E3/uL [facility] 04/01/2025 10:2 7 AM EDT 04/01/2025 us Enoch Jorge MD LAB BLOOD ORDERABLES Final Re sult [facility] [address] [place] [address] * (ABNORMAL) Immunofixation electrophoresis (04/01/2025 10:27 AM EDT) IgG 1,896(H) 603 - 1,613 mg/dL [facility] IgA 249 61 - 437 mg/dL [facility] IgM 112 20 - 172 mg/dL [facility] Immunofixation Result, Serum Comment(A ) [facility] Comment:Polyclonal increase detected in one or more immunoglobulins. 04/01/2025 10:2 7 AM EDT 04/01/2025 Enoch Jorge MD LAB BLOOD ORDERABLES Final Re sult [facility] [address] [place] [address] * (ABNORMAL) Renal Function Panel (04/01/2025 10:27 AM EDT) Glucose 87 70 - 99 mg/dL [facility] BUN 26 8 - 27 mg/dL [facility] Creatinine 1.47(H) 0.76 - 1.27 mg/dL [facility] eGFR CKD-EPI CR 2020 52(L) >59 mL/min/1.7 3 [facility] BUN/Creatinine Ratio 18 10 - 24 [facility] Sodium 139 134 - 144 mmol/L [facility] Potassium 4.5 3.5 - 5.2 mmol/L [facility] Chloride 102 96 - 106 mmol/L [facility] Bicarbonate (CO2) 20 20 - 29 mmol/L [facility] Calcium 9.3 8.6 - 10.2 mg/dL [facility] Albumin 3.8(L) 3.9 - 4.9 g/dL [facility] Phosphorus 3.3 2.8 - 4.1 mg/dL [facility] 04/01/2025 10:2 7 AM EDT 04/01/2025 Enoch Jorge MD LAB BLOOD ORDERABLES Final Re sult [facility] [address] [place] [address] from Last 3 Months Insurance [facility] ([id number]) [facility] ([id number]) Care Teams Teller Relationship Specialty Start Date End Date Osmel Zambrano PA-C [address] [place] [address] PCP - General Physician Coat Hanger Shaper Machine Operator 05/07/21
--- OUTSIDE RECORDS SUMMARY | 2025-05-29 17:16 | XMS_ITS | Encounter Summary ---
Author Organization [facility] Address [address] [facility] [address] [place] [address] Phone Care Team Providers Care Clay Dry Press Mixer Operator Name Role Phone Unknown, Unknown Primary Care Provider Osmel Rojas PA-C Primary Care Provider [phone] Paddy Maya MD Unavailable [phone] Christina Rodriguez Unavailable [phone] Cedric King MD Unavailable [phone] Enoch Jorge MD Unavailable [phone] Laverne Lagos MD Unavailable [phone] Encounter Details Date Type Department Care Team (Late st Contact Info) Description 02/15/2022 Procedure Pass [facility] Card[place] [address] [place] [address] Social History Tobacco Use Types Packs/Day Years Used Date Smoking Tobacco: Never Assessed Sex and Gender Information Value Date Recorded Sex Assigned at Not on file Legal Sex Male 10:54 AM EDT Gender Identity Not on file Sexual Orientation Not on file documented as of this encounter Functional Status * Calculated C-SSRS Risk Score (Lifetime/Recent) Answer Date of Assessment Author No Risk Indicated 02/15/2022 4:36 PM EDT Maria L Johnson, RN * [place] Suicide Severity Rating Scale (Screener/Recent Self-Report) Question Answer Date of Assessment Author 1. Wish to be (Past 1 Month) No 022 4:36 PM EDT Maria L Johnson, RN 2. Non-Specific Active Suici juliano Thoughts (Past 1 Month) No 02/15/2022 4:36 PM EDT Maria L Johnson, RN 6. Suicidal Behavior (Lifetime) No 4:36 PM EDT Maria L Johnson, RN documented as of this encounter Plan of Treatment Upcoming Encounters Date Type Department Care Team (Late st Contact Info) Description 06/18/2025 2:30 PM EST Blood Draw [facility] [address] [place] [address], 7th Floor, [address] [place] [address] Tristen Hamilton MD, [address] [id number] [email or web address] 06/18/2025 3:30 PM EST Office Visit [facility] [address] [place] [address], 7th Floor, [address] [place] [address] Tristen Hamilton MD, DPKYL [address] [place] [email or web address] du documented as of this encounter Visit Diagnoses Not on filedocumented in this encounter Additional Health Concerns Infection Onset Date Last Indicated Resolved Time MRSA Comment:Resolved from MRSA Infection Resolution Note 09/11/2022 09/09/2022 09/12/2024 10: 04 AM EST CoV-Risk Comment:Per note documentation 11/07/2024 11/07/2024 2:13 PM EDT documented as of this encounter Care Teams Clay Dry Press Mixer Operator Relationship Specialty Start Date End Date Unknown, Unknown, MD PCP - General 12/20/21 02/21/22 Osmel Zambrano PA-C PCP - General 02/22/22 Paddy Maya MD [address] [place] [address] [address] [place] [address] [email or web address] Vascular Surgery 08/03/22 Christina Rodriguez MBBS [address] [place] [address] [address] [place] [address] [email or web address] Thoracic Surgery 08/03/22 Cedric King MD [address] [place] [address] Drive [address] [place] [address] Rn Anesthetist Cardiology 08/03/22 Enoch Jorge MD [address] [facility] [address] [place] [address] [email or web address] Nephrology 08/03/22 Laverne Lagos MD [address] [place] [address] [address] [place] [address] [email or web address] Vascular Surgery 08/16/22 documented as of this encounter Additional Source Comments The information contained in this document represents components of the legal health record. It is not the complete legal health record.[facility]
--- OUTSIDE RECORDS SUMMARY | 2025-05-29 17:16 | XMS_ITS | Encounter Summary ---
Author Organization [facility] Address [address] [place] [address] Phone Care Team Providers Care Oyster Picker Name Role Phone Osmel Zambrano PA-C Primary Care Provider Paddy Maya MD Unavailable [phone] Christina Rodriguez Unavailable [phone] Cedric King MD Unavailable [phone] Enoch Jorge MD Unavailable [phone] Laverne Lagos MD Unavailable [phone] Reason for Visit * Reason Comments Reconsent for research study Encounter Details Date Type Department Care Team (Late st Contact Info) Description 03/29/2024 Documentation [facility] [place] [address] [place] [address], 4th Floor, [address] [place] [address] Ivan Roach, RN [address] [place] [address] [email or web address] Reconsent for research study Social History Tobacco Use Types Packs/Day Years [...] Description 06/18/2025 2:30 PM EST Blood Draw [facility] [address] [place] [address], [facility] Floor, [address] [place] [address] Tristen Hamilton MD, DPHIL [address] [place] [address] [email or web address] 06/18/2025 3:30 PM EST Office Visit [facility] [address] [place] [address], 7th Floor, [address] [place] [address] Tristen Hamilton MD, DPHIL [address] [place] [address] [email or web address] du documented as of this encounter Visit Diagnoses Not on filedocumented in this encounter Additional Health Concerns Infection Onset Date Last Indicated Resolved Time MRSA Comment:Resolved from MRSA Infection Resolution Note 09/11/2022 09/09/2022 09/12/2024 10: 04 AM EST CoV-Risk Comment:Per note documentation 11/07/2024 11/07/2024 2:13 PM EDT documented as of this encounter Care Teams Oyster Picker Relationship Specialty Start Date End Date Osmel Zambrano PA-C PCP - General 02/22/22 Paddy Maya MD [address] [facility] 440 [place] [address] [email or web address] Vascular Surgery 08/03/22 Christina Rodriguez MBBS 55 [facility] [address]52 [place] [address] [email or web address] Thoracic Surgery 08/03/22 Cedric King MD [address] [place] [address] Drive [address] [place] [address] Evaporator Helper Cardiology 08/03/22 Enoch Jorge MD [address] [place] [address] [email or web address] Nephrology 08/03/22 Laverne Lagos MD [address] [facility] 440 [place] [address] [email or web address] Vascular Surgery 08/16/22 documented as of this encounter Additional Source Comments The information contained in this document represents components of the legal health record. It is not the complete legal health record.[facility]
--- OUTSIDE RECORDS SUMMARY | 2025-05-29 17:16 | XMS_ITS | Encounter Summary ---
Author Organization [facility] Address [address] [place] [address] Phone Care Team Providers Care Packer Fuser Name Role Phone Osmel Zambrano PA-C Primary Care Provider Paddy Maya MD Unavailable [phone] Christina Rodriguez Unavailable [phone] Cedric King MD Unavailable [phone] Enoch Jorge MD Unavailable [phone] Laverne Lagos MD Unavailable [phone] Encounter Details Date Type Department Care Team (Late st Contact Info) Description 09/04/2024 Procedure Pass [facility] Cardiac US [address] [place] [address] Social History Tobacco Use Types Packs/Day Years [...] Description 06/18/2025 2:30 PM EST Blood Draw [facility] Center for Hematology [address] [place] [address], [facility] Floor, [address] [place] [address] Tristen Hamilton MD, DPHIL [address] [place] [id number] [email or web address] 06/18/2025 3:30 PM EST Office Visit [facility] Center for Hematology [address] [place] [address], [facility] Floor, [address] [place] [address] Tristen Hamilton MD, DPMTL [address] [place] [address] [email or web address] nazario documented as of this encounter Visit Diagnoses Not on filedocumented in this encounter Additional Health Concerns Infection Onset Date Last Indicated Resolved Time MRSA Comment:Resolved from MRSA Infection Resolution Note 09/11/2022 09/09/2022 09/12/2024 10: 04 AM EST CoV-Risk Comment:Per note documentation 11/07/2024 11/07/2024 2:13 PM EDT documented as of this encounter Care Teams Packer Fuser Relationship Specialty Start Date End Date Osmel Zambrano PA-C PCP - General 02/22/22 Paddy Maya MD 55 [facility] 440 [place] [address] [email or web address] Vascular Surgery 08/03/22 Christina Rodriguez MBBS [address] [place] [address] 652 [place] [address] [email or web address] Thoracic Surgery 08/03/22 Cedric King MD [address] [place] [address] Drive [address] [place] [address] Certified Medication Aide Cardiology 08/03/22 Enoch Jorge MD [facility] 200 [place] [address] [email or web address] Nephrology 08/03/22 Laverne Lagos MD [address] [place] [address] [address] [place] [address] [email or web address] Vascular Surgery 08/16/22 documented as of this encounter Additional Source Comments The information contained in this document represents components of the legal health record. It is not the complete legal health record.[facility]
--- OUTSIDE RECORDS SUMMARY | 2025-05-29 17:16 | XMS_ITS | Encounter Summary ---
Author Organization [facility] Address [address] [place] [address] Phone Care Team Providers Care Security Architect Name Role Phone Unknown, Unknown Primary Care Provider Osmel Rojas PA-C Primary Care Provider Paddy Maya MD Unavailable [phone] Christina Rodriguez Unavailable [phone] Cedric King MD Unavailable [phone] Enoch Jorge MD Unavailable [phone] Laverne Lagos MD Unavailable [phone] Encounter Details Date Type Department Care Team (Late st Contact Info) Description 02/16/2022 Procedure Pass [facility] [place] [address] [facility], 2nd Floor, [address] [place] [address] Social History Tobacco Use Types Packs/Day Years [...] Description 06/18/2025 2:30 PM EST Blood Draw [facility] [address] [facility], 7th Floor, [address] [place] [address] Tristen Hamilton MD, DPHIL [id number] [place] [address] [email or web address] 06/18/2025 3:30 PM EST Office Visit [facility] [address] [facility], 7th Floor, [address] [place] [address] Tristen Hamilton MD, DPHIL [id number] [place] [address] [email or web address] du documented as of this encounter Visit Diagnoses Not on filedocumented in this encounter Additional Health Concerns Infection Onset Date Last Indicated Resolved Time MRSA Comment:Resolved from MRSA Infection Resolution Note 09/11/2022 09/09/2022 09/12/2024 10: 04 AM EST CoV-Risk Comment:Per note documentation 11/07/2024 11/07/2024 2:13 PM EDT documented as of this encounter Care Teams Security Architect Relationship Specialty Start Date End Date Unknown, Unknown, PCP - General 12/20/21 02/21/22 Osmel Zambrano PA-C PCP - General 02/22/22 Paddy Maya MD [address] [place] [address] [email or web address] Vascular Surgery 08/03/22 Christina Rodriguez MBBS [address] [place] [address] [address] [place] [address] [email or web address] Thoracic Surgery 08/03/22 Cedric King MD [address] [place] [address] [address] [place] [address] Floor Layer Cardiology 08/03/22 Enoch Jorge MD [address] [place] [address] [email or web address] Nephrology 08/03/22 Laverne Lagos MD [address] [place] [address] [email or web address] Vascular Surgery 08/16/22 documented as of this encounter Additional Source Comments The information contained in this document represents components of the legal health record. It is not the complete legal health record.[facility]
--- OUTSIDE RECORDS SUMMARY | 2025-05-29 17:16 | XMS_ITS | Clinical Summary ---
Author Organization [facility] [employer] Address [address] [facility] [place] [address] Phone Care Team Providers Care Video Journalist Name Role Phone Osmel Zambrano Primary Care Provider [phone] Allergies Active Allergy Reactions Criticality Noted Date Comments Morphine Hallucinations 03/28/2022 Medications apixaban (ELIQUIS) 2.5 mg tablet Take 1 Tablet by mouth 2 times daily. Active gabapentin (NEURONTIN) 300 mg capsule Take 1 Capsule by mouth daily. 9 Active cloNIDine (CATAPRES) 0.3 mg tablet Take 1 tablet (0.3 mg total) by mouth 1 (one) time each day after dinner. 90 tablet 3 5 026 Active tamsulosin (FLOMAX) 0.4 mg 24 hr capsule Take 1 capsule (0.4 mg total) by mouth 1 (one) time each day. 5 Active bisacodyL (DULCOLAX) 5 mg EC tablet Take 1 tablet (5 mg total) by mouth 1 (one) time each day if needed. for constipation 5 Active docusate sodium (COLACE) 100 mg capsule Take 1 capsule (100 mg total) by mouth 2 (two) times a day. 5 Active polyethylene glycol (MIRALAX) 17 gram packet Take 17 g by mouth 2 (two) times a day. 3060 g 5 025 Active polyethylene glycol (Golytely) 236-22.74-6.74 -5.86 gram solution Take 4L by mouth once for one dose. May substitue any PEG. Starting at 2PM the day before your procedure drink 1 8oz glasses at your own pace until you complete half of the gallon. Finish 2nd half of the gallon at 8PM. 4000 mL 5 Active bisacodyL (DULCOLAX) 5 mg EC tablet Take 2 tablets by mouth right before beginning bowel prep. See instructions provided by the office 2 tablet 5 Active aspirin 81 mg chewable tablet Chew 1 tablet (81 mg total) 1 (one) time each day. chew and swallow 5 Active atorvastatin (LIPITOR) 40 mg tablet 5 Active amLODIPine (NORVASC) 10 mg tablet 5 Active amLODIPine (NORVASC) 5 mg tablet Take 1 tablet (5 mg total) by mouth 1 (one) time each day. 90 tablet 1 5 025 Discontin ued(Dose adjustmen t) Active Problems Problem Noted Date Diagnosed Date Hypertension 08/13/2024 Assessment & Plan (02/11/2025 3:40 PM EDT): Blood pressure is well-controlled with a reading today 130/64. Continue with medical therapies as prescribed. Aortic aneurysm ([facility] V24) 01/02/2023 Coronary artery disease 09/17/2021 Overview (10/17/2024): Assessment & Plan (02/11/2025 3:40 PM EDT): History of coronary artery disease status post CABG x 1 as outlined in detailed above. He currently denies any exertional anginal symptoms and continues on cardioprotective medical therapy with labetalol. I have reviewed with the patient the importance of a heart healthy lifestyle which includes eating a low-fat low-salt diet, getting regular exercise, maintaining a healthy weight, not smoking, and following up with routine medical care. Assessment & Plan (08/20/2024 4:54 PM EST): Patient with a history of a single-vessel bypass at the time of his initial surgery with no recurrent anginal symptoms. Patient is status post surgical repair of the ascending and hemiarch of the aorta with residual descending thoracic aorta dissection which is going to be stented at [facility] later this month. They are all this the patient has had an issue with bleeding secondary to coagulopathy. Hopefully once the remaining part of his aneurysm is tacked down the coagulopathy will stop. From a cardiovascular standpoint he is stable there is no indication of progression of his atherosclerotic coronary disease. Blood pressure is cold. He has been taking 0.3 mg of clonidine at night it is helping with his sleep his last dose was last night his blood pressure has been stable. I have warned him that with the labetalol and the clonidine he may develop lightheadedness and dizziness if that occurs we need to discontinue probably labetalol first to prevent a tachyphylaxis with discontinuation of the clonidine. Orders: ECG 12 lead Erectile dysfunction 09/17/2021 Overview (08/13/2024): Last Assessment & Plan: Discussed with Dr. King and we do not recommend the use of PDE5 inhibitors. Hyperlipidemia 09/17/2021 Assessment & Plan (02/11/2025 3:40 PM EDT): Continue statin with an LDL goal of less than 70 Dissection of thoracic aorta ([facility] V24, CMS/H CC V28) 06/07/2017 Overview (08/13/2024): 06/05/17 - AAA repaired at [facility] Dr. Schwartz. Pt. Had flank pain and proceeded to [facility] where CAT showed Type A aortic dissection involving ascending aorta . Post-op weakness in bilateral lower extremities suspected ischemic cord injury. Resolved Problems Problem Noted Date Diagnosed Date Resolved Date CHF (congestive heart failur e) ([facility] V24, CMS/HCC V28) 10/15/2024 10/17/2024 Tachycardia 01/03/2023 10/17/2024 Overview (08/13/2024): Last Assessment & Plan: Patient's EKG today showing sinus tachycardia with a heart rate of 111 bpm. This is likely related to him missing his afternoon dose of labetalol. 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 Patient is also known to have anemia. Defer to hematology whom he will be seeing in the coming weeks. Encounters Date Type Department Care Team Description 05/07/2025 3:48 PM EDT Anesthesia Event [facility] [address] [place] [phone] Leland Estrada MD Spencer, Mark A, MD 05/07/2025 2:40 PM EDT - 05/07/2025 11:59 PM EDT Hospital Encounter [facility] [address] [place] [phone] Mukesh Lizama MD Steele, Matthew G, CRNA Chang, Daniel J, MD Esophageal dysphagia; Change in bowel habits Discharge Disposition: Home or Self Care 04/29/2025 Telephone Gastroenterology - [address] [facility] [address] [facility] [address] [place] [phone] Kerri Luis MA 04/08/2025 1:20 PM EDT Consult Gastroenterology - [place] [address] [facility] [address] [facility] [address] [place] [phone] Melissa Mosher NP Esophageal dysphagia (Primary Dx); Change in bowel habits 04/08/2025 Telephone Gastroenterology [facility] [address] [facility] [address] [place] [address] Melissa Mosher NP from Last 3 Months Immunizations Immunization Administration Dates Next Due Moderna SARS-CoV-2 COVID-19, mRNA, LNP-S, preservative free 07/16/2021,12/21/2020,11/21/2020 Surgical History Surgery Date Site/Laterality Comments THORACOABDOMINAL AORTIC ANEURYSM REPAIR COLONOSCOPY Medical History Medical History Date Comments Thoracic spinal cord injury (CMS/HCC V24, CMS/HCC V28) DX:Thoracic spinal cord inju ry (HCC) Thrombocytopenia (CMS/HCC V24) D X:Thrombocytopenia (HCC) Intercostal neuritis DX:Intercos mian neuritis CKD (chronic kidney disease) DX: CKD (chronic kidney disease) Thoracoabdominal aortic aneu rysm (TAAA) without rupture (CMS/HCC V24) CAD (coronary artery disease) Hypertension History of DVT (deep vein thrombosis) Social History Tobacco Use Types Packs/Day Years Used Date Smoking Tobacco: Never Smokeless Tobacco: Never Tobacco Cessation:Counseling Given: Not Answered Alcohol Use Standard Drinks/Week Comments Not Currently 0 (1 standard drink = 0.6 oz pur e alcohol) Interpersonal Safety Answer Date Record ed Physical Abuse Unrecognized value 05/07/2025 Verbal Abuse Unrecognized value 05/07/2025 Sex and Gender Information Value Date Recorded Sex Assigned at Male 05/07/2025 2:28 PM EDT Legal Sex Male 4:33 PM EST Gender Identity Male 05/07/2025 2:28 PM EDT Sexual Orientation Straight 05/07/2025 2: 28 PM EDT Obstetrics History Last Filed Vital Signs Vital Sign Reading Time Taken Comments Blood Pressure 150/93 05/07/2025 4:38 PM EDT Pulse 70 05/07/2025 4:38 PM EDT Temperature 36.1 C (96.9 F) 05/07/2025 4:18 PM EDT Respiratory Rate 18 05/07/2025 4:38 PM EDT Oxygen Saturation 100% 05/07/2025 4:38 PM EDT Inhaled Oxygen Concentration - - Weight 56.2 kg (124 lb) 04/30/2025 2:00 PM EDT Height 160 cm (5' 3 ) 04/30/2025 2:00 PM EDT Body Mass Index 21.97 04/30/2025 2:00 PM EDT Plan of Treatment Upcoming Encounters Date Type Department Care Team (Late st Contact Info) Description 08/19/2025 9:20 AM EST Office Visit [facility] [address] [facility] [address] [place] [phone] Cedric King MD [address] [place] [address] [address] [place] [phone] Health Maintenance Due Date Last Done Comments RSV Immunization Adult Patients (1 - Risk 50-74 years 1-dose series) 2009 Hepatitis C Screening 07/23/2022 Medicare Annual Wellness Visit 07/23/2022 Social Influencers of Health Screening 07/23/2022 Depression Screening 08/14/2024 COVID-19 Vaccine ( season) 2025 07/16/2021, 12/21/2020, 11/21/2020 Influenza Vaccine (#1) 2025 DTaP,Tdap,and Td Vaccines (2 - Td or Tdap) 09/11/2025 09/11/2015 Hypertension/CHF/CAD Annual BMP Blood Test 04/16/2026 04/16/2025, 04/15/2025, 01/29/2025, Additional history exists Falls Risk Assessment 05/07/2026 05/07/2025 Cholesterol Screening (Lipid Panel) 04/15/2030 04/15/2025, 09/18/2024, 09/04/2024, Additional history exists Colorectal Cancer Screening: Colonoscopy 05/07/2035 05/07/2025 Zoster Vaccines Completed 09/01/2021, 10/07/2020 Pneumococcal Vaccine: 50+ Years Completed 03/13/2024 HIB Vaccines Aged Out No longer eligi ble based on patient's age to complete this topic HPV Vaccines Aged Out No longer eligi ble based on patient's age to complete this topic Hepatitis A Vaccines Aged Out No long er eligible based on patient's age to complete this topic Hepatitis B Vaccines Aged Out No long er eligible based on patient's age to complete this topic IPV Vaccines Aged Out No longer eligi ble based on patient's age to complete this topic MMR Vaccines Aged Out No longer eligi ble based on patient's age to complete this topic Meningococcal ACWY Vaccine Aged Out N o longer eligible based on patient's age to complete this topic Meningococcal B Vaccine Aged Out No l onger eligible based on patient's age to complete this topic RSV Immunization Patients Under 20 months Aged Out No longer eligible based on patient's age to complete this topic Varicella Vaccines Aged Out No longer eligible based on patient's age to complete this topic Procedures Procedure Name Priority Date/Time Associated Diagnosis Comments COLONOSCOPY Routine 05/07/2025 4:17 PM EDT Esophageal dysphagia Change in bowel habits EGD Routine 05/07/2025 4:17 PM EDT Esophageal dysphagia Change in bowel habits TISSUE EXAM Routine 05/07/2025 4:12 PM EDT Esophageal dysphagia Change in bowel habits ANNUAL BMP BLOOD TEST Routine 02/23/2024 LIPID PANEL Routine 12/13/2023 from Last 3 Months or Most Recently Relevant to Health Maintenance Results * COLONOSCOPY Anesthesia - MAC; [facility] ENDOSCOPY (05/07/2025 4:17 PM EDT) Anatomical Region Laterality Modality Endoscopy 05/07/2025 3:52 PM EDT Impressions 05/07/2025 4:26 PM EDT - Internal hemorrhoids. - The examination was otherwise normal. - No specimens collected. Recommendation: - Discharge patient to home. - Repeat colonoscopy in 10 years for screening purposes. Narrative 05/07/2025 4:26 PM EDT [facility] GI Patient Name: Rodrigo Morales Procedure Date: 05/07/2025 3:52 PM Date of : 1960 Age: 65 Gender: Male Note Status: Finalized Attending MD: Mukesh Lizama MD, Procedure Date No Time: 05/07/2025 Procedure: Colonoscopy Indications: Change in bowel habits Providers: Mukesh Lizama MD Referring MD: Mukesh Lizama MD Medicines: Monitored Anesthesia Care Complications: No immediate complications. Estimated Blood Loss: Estimated blood loss: none. Procedure: Pre-Anesthesia Assessment: - Prior to the procedure, a History and Physical was performed, and patient medications and allergies were reviewed. The patient is competent. The risks and benefits of the procedure and the sedation options and risks were discussed with the patient. All questions were answered and informed consent was obtained. Patient identification and proposed procedure were verified by the physician, the nurse, the label fuser tender and the cardiac monitor technician in the pre-procedure area in the endoscopy suite. Mental Status Examination: alert and oriented. Airway Examination: normal oropharyngeal airway and neck mobility. Respiratory Examination: clear to auscultation. CV Examination: normal. Prophylactic Antibiotics: The patient does not require prophylactic antibiotics. Prior Anticoagulants: The patient has taken no anticoagulant or antiplatelet agents. ASA Grade Assessment: III - A patient with severe systemic disease. After reviewing the risks and benefits, the patient was deemed in satisfactory condition to undergo the procedure. The anesthesia plan was to use monitored anesthesia care (MAC). Immediately prior to administration of medications, the patient was re-assessed for adequacy to receive sedatives. The heart rate, respiratory rate, oxygen saturations, blood pressure, adequacy of pulmonary ventilation, and response to care were monitored throughout the procedure. The physical status of the patient was re-assessed after the procedure. After I obtained informed consent, the scope was passed under direct vision. Throughout the procedure, the patient's blood pressure, pulse, and oxygen saturations were monitored continuously.The Colonoscope was introduced through the anus and advanced to the cecum, identified by appendiceal orifice and ileocecal valve. The colonoscopy was performed without difficulty. The patient tolerated the procedure well. The quality of the bowel preparation was good. Findings: The perianal and digital rectal examinations were normal. Internal hemorrhoids were found during retroflexion. The hemorrhoids were Grade I (internal hemorrhoids that do not prolapse). The exam was otherwise without abnormality. Procedure Code(s): --- Professional --- 90482, Colonoscopy, flexible; diagnostic, including collection of specimen(s) by brushing or washing, when performed (separate procedure) Diagnosis Code(s): --- Professional --- R19.4, Change in bowel habit CPT copyright 2020 [employer]. All rights reserved. The codes documented in this report are preliminary and upon nematologist review may be revised to meet current compliance requirements. Mukesh Lizama MD 05/07/2025 4:25:51 PM This report has been signed electronically.Mukesh Lizama MD Number of Addenda: 0 Note Initiated On: 05/07/2025 3:52 PM Scope Withdrawal Time: 0 hours 6 minutes 56 seconds Scope In: 3:57:52 PM Scope Out: 4:08:12 PM Endoscopy Department at [facility] - [address] [place] [phone] Procedure Note Mukesh Lizama MD - 05/07/2025 [facility] GI Patient Name: Rodrigo Morales Procedure Date: 05/07/2025 3:52 PM Date of : 1960 Age: 65 Gender: Male Note Status: Finalized Attending MD: Mukesh Lizmaa MD, Procedure Date No Time: 05/07/2025 Procedure: Colonoscopy Indications: Change in bowel habits Providers: Mukesh Lizama MD Referring MD: Mukesh Lizama MD Medicines: Monitored Anesthesia Care Complications: No immediate complications. Estimated Blood Loss: Estimated blood loss: none. Procedure: Pre-Anesthesia Assessment: - Prior to the procedure, a History and Physicalwas performed, and patient medications and allergieswere reviewed. The patient is competent. The risks and benefits of the procedure and the sedation optionsand risks were discussed with the patient. Allquestions were answered and informed consent was obtained. Patient identification and proposed procedure were verified by the physician, the nurse, theanesthetist and the cardiac monitor technician in the pre-procedure area in the endoscopy suite. Mental Status Examination: alertand oriented. Airway Examination: normal oropharyngeal airway and neck mobility. Respiratory Examination: clear to auscultation. CV Examination: normal. Prophylactic Antibiotics: The patient does notrequire prophylactic antibiotics. Prior Anticoagulants: The patient has taken no anticoagulant or antiplatelet agents. ASA Grade Assessment: III - A patient with severe systemic disease. After reviewing the risksand benefits, the patient was deemed in satisfactory condition to undergo the procedure. The anesthesia plan was to use monitored anesthesia care (MAC). Immediately prior to administration of medications, the patient was re-assessed for adequacy to receive sedatives. The heart rate, respiratory rate, oxygen saturations, blood pressure, adequacy of pulmonary ventilation, and response to care were monitored throughout the procedure. The physical status ofthe patient was re-assessed after the procedure. After I obtained informed consent, the scope was passed under direct vision. Throughout theprocedure, the patient's blood pressure, pulse, and oxygen saturations were monitored continuously.The Colonoscope was introduced through the anus and advanced to the cecum, identified by appendiceal orifice and ileocecal valve. The colonoscopy was performed without difficulty. The patient tolerated the procedure well. The quality of the bowel preparation was good. Findings: The perianal and digital rectal examinations were normal. Internal hemorrhoids were found duringretroflexion. The hemorrhoids were Grade I (internal hemorrhoids that do not prolapse). The exam was otherwise without abnormality. Procedure Code(s): --- Professional --- 57724, Colonoscopy, flexible; diagnostic, including collection of specimen(s) by brushing or washing,when performed (separate procedure) Diagnosis Code(s): --- Professional --- R19.4, Change in bowel habit CPT copyright 2020 [employer]. All rights reserved. The codes documented in this report are preliminary and upon nematologist reviewmay be revised to meet current compliance requirements. Mukesh Lizama MD 05/07/2025 4:25:51 PM This report has been signed electronically.Mukesh Lizama MD Number of Addenda: 0 Note Initiated On: 05/07/2025 3:52 PM Scope Withdrawal Time: 0 hours 6 minutes 56 seconds Scope In: 3:57:52 PM Scope Out: 4:08:12 PM Endoscopy Department at [facility] - [address] [place] [phone] IMPRESSION: - Internal hemorrhoids. - The examination was otherwise normal. - No specimens collected. Recommendation: - Discharge patient to home. - Repeat colonoscopy in 10 years for screening purposes. Mukesh Lizama MD GI~PROCEDURE ORDERABLES Fin al Result * EGD Anesthesia - MAC; [facility] ENDOSCOPY (05/07/2025 4:17 PM EDT) Anatomical Region Laterality Modality Endoscopy 05/07/2025 3:52 PM EDT Impressions 05/07/2025 4:23 PM EDT - Normal examined duodenum. - Normal stomach. - Z-line irregular, 39 cm from the incisors. Biopsied. Recommendation: - Discharge patient to home. - Await pathology results. Narrative 05/07/2025 4:23 PM EDT [facility] GI Patient Name: Rodrigo Morales Procedure Date: 05/07/2025 3:52 PM Date of : 1960 Age: 65 Gender: Male Note Status: Finalized Attending MD: Mukesh Lizama MD, Procedure Date No Time: 05/07/2025 Procedure: Upper GI endoscopy Indications: Dysphagia Providers: Mukesh Lizama MD Referring MD: Mukesh Lizama MD Medicines: Monitored Anesthesia Care Complications: No immediate complications. Estimated blood loss: Minimal. Estimated Blood Loss: Estimated blood loss was minimal. Procedure: Pre-Anesthesia Assessment: - Prior to the procedure, a History and Physical was performed, and patient medications and allergies were reviewed. The patient is competent. The risks and benefits of the procedure and the sedation options and risks were discussed with the patient. All questions were answered and informed consent was obtained. Patient identification and proposed procedure were verified by the physician, the nurse, the label fuser tender and the cardiac monitor technician in the pre-procedure area in the endoscopy suite. Mental Status Examination: alert and oriented. Airway Examination: normal oropharyngeal airway and neck mobility. Respiratory Examination: clear to auscultation. CV Examination: normal. Prophylactic Antibiotics: The patient does not require prophylactic antibiotics. Prior Anticoagulants: The patient has taken no anticoagulant or antiplatelet agents. ASA Grade Assessment: III - A patient with severe systemic disease. After reviewing the risks and benefits, the patient was deemed in satisfactory condition to undergo the procedure. The anesthesia plan was to use monitored anesthesia care (MAC). Immediately prior to administration of medications, the patient was re-assessed for adequacy to receive sedatives. The heart rate, respiratory rate, oxygen saturations, blood pressure, adequacy of pulmonary ventilation, and response to care were monitored throughout the procedure. The physical status of the patient was re-assessed after the procedure. After obtaining informed consent, the endoscope was passed under direct vision. Throughout the procedure, the patient's blood pressure, pulse, and oxygen saturations were monitored continuously.The Endoscope was introduced through the mouth, and advanced to the second part of duodenum. The upper GI endoscopy was accomplished without difficulty. The patient tolerated the procedure well. Findings: The examined duodenum was normal. The stomach was normal. The Z-line was irregular and was found 39 cm from the incisors. Biopsies were taken with a cold forceps for histology. Estimated blood loss was minimal. No other significant abnormalities were identified in a careful examination of the esophagus. Procedure Code(s): --- Professional --- 23985, Esophagogastroduodenoscopy, flexible, transoral; with biopsy, single or multiple Diagnosis Code(s): --- Professional --- R13.10, Dysphagia, unspecified CPT copyright 2020 [employer]. All rights reserved. The codes documented in this report are preliminary and upon nematologist review may be revised to meet current compliance requirements. Mukesh Lizama MD 05/07/2025 4:23:43 PM This report has been signed electronically.Mukesh Lizama MD Number of Addenda: 0 Note Initiated On: 05/07/2025 3:52 PM Scope In: Scope Out: Endoscopy Department at [facility] - [address] [place] [phone] Procedure Note Mukesh Lizmaa MD - 05/07/2025 [facility] GI Patient Name: Rodrigo Morales Procedure Date: 05/07/2025 3:52 PM Date of : 1960 Age: 65 Gender: Male Note Status: Finalized Attending MD: Mukesh Lizama MD, Procedure Date No Time: 05/07/2025 Procedure: Upper GI endoscopy Indications: Dysphagia Providers: Mukesh Lizama MD Referring MD: Mukesh Lizama MD Medicines: Monitored Anesthesia Care Complications: No immediate complications. Estimated blood loss: Minimal. Estimated Blood Loss: Estimated blood loss was minimal. Procedure: Pre-Anesthesia Assessment: - Prior to the procedure, a History and Physicalwas performed, and patient medications and allergieswere reviewed. The patient is competent. The risks and benefits of the procedure and the sedation optionsand risks were discussed with the patient. Allquestions were answered and informed consent was obtained. Patient identification and proposed procedure were verified by the physician, the nurse, theanesthetist and the cardiac monitor technician in the pre-procedure area in the endoscopy suite. Mental Status Examination: alertand oriented. Airway Examination: normal oropharyngeal airway and neck mobility. Respiratory Examination: clear to auscultation. CV Examination: normal. Prophylactic Antibiotics: The patient does notrequire prophylactic antibiotics. Prior Anticoagulants: The patient has taken no anticoagulant or antiplatelet agents. ASA Grade Assessment: III - A patient with severe systemic disease. After reviewing the risksand benefits, the patient was deemed in satisfactory condition to undergo the procedure. The anesthesia plan was to use monitored anesthesia care (MAC). Immediately prior to administration of medications, the patient was re-assessed for adequacy to receive sedatives. The heart rate, respiratory rate, oxygen saturations, blood pressure, adequacy of pulmonary ventilation, and response to care were monitored throughout the procedure. The physical status ofthe patient was re-assessed after the procedure. After obtaining informed consent, the endoscope was passed under direct vision. Throughout theprocedure, the patient's blood pressure, pulse, and oxygen saturations were monitored continuously.TheEndoscope was introduced through the mouth, and advanced tothe second part of duodenum. The upper GI endoscopy was accomplished without difficulty. The patienttolerated the procedure well. Findings: The examined duodenum was normal. The stomach was normal. The Z-line was irregular and was found 39 cm fromthe incisors. Biopsies were taken with a cold forcepsfor histology. Estimated blood loss was minimal. No other significant abnormalities were identifiedin a careful examination of the esophagus. Procedure Code(s): --- Professional --- 07979, Esophagogastroduodenoscopy, flexible, transoral; with biopsy, single or multiple Diagnosis Code(s): --- Professional --- R13.10, Dysphagia, unspecified CPT copyright 2020 [employer]. All rights reserved. The codes documented in this report are preliminary and upon nematologist reviewmay be revised to meet current compliance requirements. Mukesh Lizama MD 05/07/2025 4:23:43 PM This report has been signed electronically.Mukesh Lizama MD Number of Addenda: 0 Note Initiated On: 05/07/2025 3:52 PM Scope In: Scope Out: Endoscopy Department at [facility] - [address] [place] [id number] IMPRESSION: - Normal examined duodenum. - Normal stomach. - Z-line irregular, 39 cm from the incisors.Biopsied. Recommendation: - Discharge patient to home. - Await pathology results. us Mukesh Lizama MD GI~PROCEDURE ORDERABLES Fin al Result * Tissue exam (05/07/2025 4:12 PM EDT) Final Diagnosis Gastroesophageal junction, biopsy: - Esophageal squamous mucosa without diagnostic histopathologic change; no intraepithelial eosinophils are identified. - Gastric cardiac/fundic type mucosa with scant chronic inflammation and mild edema. - No intestinal metaplasia and no dysplasia identified. 05/09/2025 11:29 AM EDT [facility] ([facility]) [facility] Gross Description A. Esophagus, G-E junction biopsy: Labeled esophagus, GE junction . Received in formalin are four irregular gauthier-white mucosal tissue fragments, ranging from less than 0.1 cm to 0.5 cm in greatest dimension, which are wrapped in paper and submitted in toto in one cassette, four pieces, multiple levels on one slide.ANA 05/09/2025 11:29 AM EDT [facility] Disclaimer Unless otherwise specified, all tissue is 10% NB formalin fixed and paraffin embedded. 05/09/2025 11:29 AM EDT [facility] Tissue Esophageal structure / Unknown 05/07/2025 4:12 PM EDT 05/08/2025 6:51 AM EDT Mukesh Lizama MD LAB PATHOLOGY ORDERABLES Fi nal Result [facility]) [facility] [address] [place] [address], * Lipid panel (12/13/2023) LDL/HDL Ratio 0 Comment:No Interpretation , Abstracted Triglycerides 0 mg/dL Comment:No Interpretation , Abstracted Cholesterol 0 mg/dL Comment:No Interpretation , Abstracted HDL 0 mg/dL Comment:No Interpretation , Abstracted LDL Cholesterol 0 mg/dL Comment:No Interpretation , Abstracted Blood Venous blood specimen / Unknown Fredo Provider LAB BLOOD ORDERABLES Shantel l Result from Last 3 Months or Most Recently Relevant to Health Maintenance Insurance [facility] Member Subscriber Plan / Payer (Ef fective 2019-Present) Name:RODRIGO MORALES Relation to Subscriber:Self Name:Rodrigo Morales Payer ID:[id number] Group ID:[id number] Type:Not on file Address: [address] [place] [address] Care Teams Video Journalist Relationship Specialty Start Date End Date Osmel Zambrano PA [address] [place] [address] PCP - General 09/17/21
--- OUTSIDE RECORDS SUMMARY | 2025-05-29 17:17 | XMS_ITS ---
[facility] Name [facility] Organization Unknown Encounters Encounter Type Encounter Reason Primary Diagnosis Location Date Ambulatory Abdominal Pain/problems Abdominal Pain/problems [facility] 11/06/2024 Care Team Organization Name Specialty Phone Email Start Date End Da te [facility] 11/12/2024 12/07/2024 [facility] 11/07/2024
--- OUTSIDE RECORDS SUMMARY | 2025-05-29 17:17 | XMS_ITS | Encounter Summary ---
Author Organization [facility] Address [address] [employer] [facility] [address] [place] [address] Phone Care Team Providers Care Manager Unit Name Role Phone Osmel Zambrano PA-C Primary Care Provider [phone] Paddy Maya MD Unavailable [phone] Christina Rodriguez Unavailable [phone] Cedric King MD Unavailable [phone] Enoch Jorge MD Unavailable [phone] Laverne Lagos MD Unavailable [phone] Encounter Details Date Type Department Care Team (Late st Contact Info) Description 09/09/2022 Procedure Pass [facility] PERIOPERATIVE DEPT [address] [place] [id number] Social History Tobacco Use Types Packs/Day Years [...] Date of Assessment Author No Risk Indicated 09/09/2022 9:00 PM Madonna Lewis RN * [employer] Suicide Severity Rating Scale (Screener/Recent Self-Report) Question Answer Date of Assessment Author 1. Wish to be (Past 1 Month) No 09/09/2022 9:00 PM Madonna Lewis RN 2. Non-Specific Active Suici juliano Thoughts (Past 1 Month) No 09/09/2022 9:00 PM Festus Lewis RN 6. Suicidal Behavior (Lifetime) No 9:00 PM Madonna Lewis RN documented as of this encounter Plan of Treatment Upcoming Encounters Date Type Department Care Team (Late st Contact Info) Description 06/18/2025 2:30 PM EST Blood Draw [facility] Center [facility] [address] [place] [address], 7th Floor, [address] [place] [address] Tristen Hamilton MD, [address] [address] [email or web address] 06/18/2025 3:30 PM EST Office Visit [facility] [address] [place] [address], 7th Floor, [address] [place] [address] Tristen Hamilton MD, [address] [address] [email or web address] documented as of this encounter Visit Diagnoses Not on filedocumented in this encounter Additional Health Concerns Infection Onset Date Last Indicated Resolved Time MRSA Comment:Resolved from MRSA Infection Resolution Note 09/11/2022 09/09/2022 09/12/2024 10: 04 AM EST CoV-Risk Comment:Per note documentation 11/07/2024 11/07/2024 2:13 PM EDT documented as of this encounter Care Teams Manager Unit Relationship Specialty Start Date End Date Osmel Zambrano PA-C PCP - General 02/22/22 Paddy Maya MD 55 [facility] [address] [place] [address] PAULINO@[email or web address] Vascular Surgery 08/03/22 Christina Rodriguze MBBS [address] [place] [address] [address] [place] [address] CHAY@[email or web address] Thoracic Surgery 08/03/22 Cedric King MD [address] [place] [address] Drive [address] [place] [address] Plate Furnace Operator Cardiology 08/03/22 Enoch Jorge MD [address] [facility] [address] [place] [address] [email or web address] Nephrology 08/03/22 Laverne Lagos MD [address] [place] [address] [address] [place] [address] FRED@[email or web address] Vascular Surgery 08/16/22 documented as of this encounter Additional Source Comments The information contained in this document represents components of the legal health record. It is not the complete legal health record.[facility]
--- OUTSIDE RECORDS SUMMARY | 2025-05-29 17:17 | XMS_ITS | Encounter Summary ---
Author Organization [facility] Address [address] [place] [address] Phone Care Team Providers Care Probate Judge Name Role Phone Osmel Zambrano PA-C Primary Care Provider [phone] Paddy Maya MD Unavailable [phone] Christina Rodriguez Unavailable [phone] Cedric King MD Unavailable [phone] Enoch Jorge MD Unavailable [phone] Laverne Lagos MD Unavailable [phone] Encounter Details Date Type Department Care Team (Late st Contact Info) Description 10/30/2024 Procedure Pass [facility] PERIOPERATIVE DEPT [address] [place] [id number] Social History Tobacco Use Types Packs/Day Years Used Date Smoking Tobacco: Never Smokeless Tobacco: Never Alcohol Use Standard Drinks/Week Comments Never 0 (1 standard drink = 0.6 oz pur e alcohol) Education Answer Date Recorded Are you interested in more education? Not on dean e 12/09/2022 Are you concerned about learning? Not on file 12/09/2022 No 12/09/2022 No 12/09/2022 Food Answer Date Recorded Within the past 6 months we worried whether our food would run out before we got money to buy more. Never True 09/20/2024 Within the past 6 months the food we bought just didn't last and we didn't have enough money to get more. Never True Residential Stability Answer Date Recor ded What is your housing situation today? I have aman zambrano 09/20/2024 How many times have you move d in the past 12 months? Zero (I did not move) 09/20/2024 Paying for Meds Answer Date Recorded Do you have trouble paying for medicines? Yes 09/20/2024 Paying Utility Bills Answer Date Record ed Do you have trouble paying your heating or elect ricity bill? Yes 09/20/2024 Transportation Answer Date Recorded Has the lack of transportati on kept you from medical appointments or from getting medications? No 09/20/2024 Digital Access Answer Date Recorded No 09/20/2024 Yes 09/20/2024 Do you have reliable internet access at home? Ye s 09/20/2024 Do you have a device (e.g., phone, tablet, computer) with a working camera? Yes 09/20/2024 Intimate Partner Violence Answer Date R ecorded Are you denied basic needs s uch as food, clothing, or medical care? No 10/29/2024 In the past 12 months have y ou been in a relationship with a person who hurts, threatens, or tries to control you? No 10/29/2024 Are you denied basic needs s uch as food, clothing, or medical care? No 10/29/2024 In the past 12 months have y ou been in a relationship with a person who hurts, threatens, or tries to control you? No 10/29/2024 Sex and Gender Information Value Date Recorded Sex Assigned at Not on file Legal Sex Male 10:54 AM EDT Gender Identity Not on file Sexual Orientation Not on file documented as of this encounter Plan of Treatment Upcoming Encounters Date Type Department Care Team (Late st Contact Info) Description 06/18/2025 2:30 PM EST Blood Draw [facility] Center for Hematology [address] [facility], 7th Floor, [address] [place] [address] Tristen Hamilton MD, DPHIL [address] [place], [place] [id number] [email or web address] du 06/18/2025 3:30 PM EST Office Visit [facility] Center for Hematology [address] [facility], 7th Floor, [address] [place] [address] Tristen Hamilton MD, DPHIL [address] [facility] [place] [address] JOSE@[email or web address] du documented as of this encounter Visit Diagnoses Not on filedocumented in this encounter Additional Health Concerns Infection Onset Date Last Indicated Resolved Time CoV-Risk Comment:Per note documentation 11/07/2024 11/07/2024 2:13 PM EDT documented as of this encounter Care Teams Probate Judge Relationship Specialty Start Date End Date Osmel Zambrano PA-C PCP - General 02/22/22 Paddy Maya MD 55 [facility] 440 [place] [address] PAULINO@[email or web address] Vascular Surgery 08/03/22 Christina Rodriguez MBBS [address] [place] [address] [address] [place] [address] CHAY@[email or web address] Thoracic Surgery 08/03/22 Cedric King MD [address] [place] [address] [place] [address] Grocery Team Member Cardiology 08/03/22 Enoch Jorge MD [address] [place] [address] [email or web address] Nephrology 08/03/22 Laverne Lagos MD [address] [place] [address] FRED@[email or web address] Vascular Surgery 08/16/22 documented as of this encounter Additional Source Comments The information contained in this document represents components of the legal health record. It is not the complete legal health record.[facility]
--- OUTSIDE RECORDS SUMMARY | 2025-05-29 17:17 | XMS_ITS | Encounter Summary ---
Author Organization [facility] Address [address] [facility] [address] [place] [address] Phone Care Team Providers Care Co Founder And Ceo Name Role Phone Osmel Zambrano PA-C Primary Care Provider [phone] Paddy Maya MD Unavailable [phone] Christina Rodriguez Unavailable [phone] Cedric King MD Unavailable [phone] Enoch Jorge MD Unavailable [phone] Laverne Lagos MD Unavailable [phone] Encounter Details Date Type Department Care Team (Late Contact Info) Description 09/11/2022 Procedure Pass [facility] PERIOPERATIVE DEPT [address] [place] [id number] Social History Tobacco Use Types Packs/Day Years [...] Encounters Date Type Department Care Team (Late Contact Info) Description 06/18/2025 2:30 PM EST Blood Draw [facility] Center for Hematology [address] [place] [address], 7th Floor, [address] [place] [address] Tristen Hamilton MD, DPHIL [address] [place] [address] [email or web address] 06/18/2025 3:30 PM EST Office Visit [facility] for Hematology [address] [place] [address], 7th Floor, [address] [place] [address] Tristen Hamilton MD, DPHIL [address] [address] JOSE@[email or web address] du documented as of this encounter Visit Diagnoses Not on filedocumented in this encounter Additional Health Concerns Infection Onset Date Last Indicated Resolved Time MRSA Comment:Resolved from MRSA Infection Resolution Note 09/11/2022 09/09/2022 09/12/2024 10: 04 AM EST CoV-Risk Comment:Per note documentation 11/07/2024 11/07/2024 2:13 PM EDT documented as of this encounter Care Teams Co Founder And Ceo Relationship Specialty Start Date End Date Osmel Zambrano PA-C PCP - General 02/22/22 Paddy Maya MD [address] [place] [address] [address] [place] [address] PAULINO@[email or web address] Vascular Surgery 08/03/22 Christina Rodriguez MBBS [address] [place] [address] 6[address] [place] [address] CHAY@[email or web address] Thoracic Surgery 08/03/22 Cedric King MD [address] [place] [address] Drive [address] [place] [address] Med Care Manager Cardiology 08/03/22 Enoch Jorge MD [address] [facility] [address] [place] [address] [email or web address] Nephrology 08/03/22 Laverne Lagos MD [address] [place] [address] FRED@[email or web address] Vascular Surgery 08/16/22 documented as of this encounter Additional Source Comments The information contained in this document represents components of the legal health record. It is not the complete legal health record.[facility]
--- OUTSIDE RECORDS SUMMARY | 2025-05-29 17:19 | XMS_ITS | Encounter Summary ---
Author Organization [facility] Address [address] [place] [address] Phone Care Team Providers Care Vibration Analyst Name Role Phone Osmel Zambrano PA-C Primary Care Provider Paddy Maya MD Unavailable [phone] Christina Rodriguez Unavailable [phone] Cedric King MD Unavailable [phone] Enoch Jorge MD Unavailable [phone] Laverne Lagos MD Unavailable [phone] Encounter Details Date Type Department Care Team (Late st Contact Info) Description 09/04/2024 Procedure Pass [facility] Imaging - Peripoerative Interventional Radiology [address] [place] [address], 4th [place] [address] Social History Tobacco Use Types Packs/Day Years [...] Description 06/18/2025 2:30 PM EST Blood Draw [facility] Center for Hematology [address] [place] [address], [facility] Floor, [address] [place] [address] Tristen Hamilton MD, DPHIL [address] [place] [address] [email or web address] nazario 06/18/2025 3:30 PM EST Office Visit [facility] Center for Hematology [address] [place] [address], [facility] Floor, [address] [place] [address] Tristen Hamilton MD, DPHIL [address] [place] [address] JOSE@[email or web address] documented as of this encounter Visit Diagnoses Not on filedocumented in this encounter Additional Health Concerns Infection Onset Date Last Indicated Resolved Time MRSA Comment:Resolved from MRSA Infection Resolution Note 09/11/2022 09/09/2022 09/12/2024 10: 04 AM EST CoV-Risk Comment:Per note documentation 11/07/2024 11/07/2024 2:13 PM EDT documented as of this encounter Care Teams Vibration Analyst Relationship Specialty Start Date End Date Osmel Zambrano PA-C PCP - General 02/22/22 Paddy Maya MD [address] [place] [address] [address] [place] [address] PAULINO@[email or web address] Vascular Surgery 08/03/22 Christina Rodriguez MBBS [address] [place] [address] 6[address] [place] [address] CHAY@[email or web address] Thoracic Surgery 08/03/22 Cedric King MD [address] [place] [address] Drive [address] [place] [address] Healthcare Science Specialist Cardiology 08/03/22 Enoch Jorge MD 100 [facility] 200 [place] [address] [email or web address] Nephrology 08/03/22 Laverne Lagos MD [address] [place] [address] FRED@[email or web address] Vascular Surgery 08/16/22 documented as of this encounter Additional Source Comments The information contained in this document represents components of the legal health record. It is not the complete legal health record.[facility]
--- OUTSIDE RECORDS SUMMARY | 2025-05-29 17:19 | XMS_ITS | Encounter Summary ---
Author Organization [facility] Address [address] [facility] [address] [place] [address] Phone Care Team Providers Care Director Of Teenage Activities Name Role Phone Osmel Zambrano PA-C Primary Care Provider [phone] Paddy Maya MD Unavailable [phone] Christina Rodriguez Unavailable [phone] Cedric King MD Unavailable [phone] Enoch Jorge MD Unavailable [phone] Laverne Lagos MD Unavailable [phone] Encounter Details Date Type Department Care Team (Late Contact Info) Description 09/16/2022 Procedure Pass [facility] [place] [address] [place] [phone] Social History Tobacco Use Types Packs/Day Years [...] [place] [facility] [place] [facility] [address] [place] [address], 7th Floor, [address] [place] [address] Tristen Hamilton MD, DPHIL [address] [place] [address] JOSE@[email or web address] 06/18/2025 3:30 PM EST Office Visit [facility] [address] [place] [address], 7th Floor, [address] [place] [address] Tristen Hamilton MD, DPHIL [address] [address] JOSE@[email or web address] du documented as of this encounter Visit Diagnoses Not on filedocumented in this encounter Additional Health Concerns Infection Onset Date Last Indicated Resolved Time MRSA Comment:Resolved from MRSA Infection Resolution Note 09/11/2022 09/09/2022 09/12/2024 10: 04 AM EST CoV-Risk Comment:Per note documentation 11/07/2024 11/07/2024 2:13 PM EDT documented as of this encounter Care Teams Director Of Teenage Activities Relationship Specialty Start Date End Date Osmel Zambrano PA-C PCP - General 02/22/22 Paddy Maya MD [address] [place] [address] [address] [place] [address] PAULINO@[email or web address] Vascular Surgery 08/03/22 Christina Rodriguez MBBS [address] [place] [address] 6[address] [place] [address] CHAY@[email or web address] Thoracic Surgery 08/03/22 Cedric King MD [address] [place] [address] Drive [address] [place] [address] Director Of Medicare Cardiology 08/03/22 Enoch Jorge MD [address] [facility] 200 [place] [address] [email or web address] Nephrology 08/03/22 Laverne Lagos MD [address] [place] [address] [email or web address] Vascular Surgery 08/16/22 documented as of this encounter Additional Source Comments The information contained in this document represents components of the legal health record. It is not the complete legal health record.[facility]
--- OUTSIDE RECORDS SUMMARY | 2025-05-29 17:20 | XMS_ITS | Encounter Summary ---
Author Organization [facility] Address [address] [place] [address] Phone Care Team Providers Care Event Planning Manager Name Role Phone Osmel Zambrano PA-C Primary Care Provider [phone] Paddy Maya MD Unavailable [phone] Christina Rodriguez Unavailable [phone] Cedric King MD Unavailable [phone] Enoch Jorge MD Unavailable [phone] Laverne Lagos MD Unavailable +[phone] Encounter Details Date Type Department Care Team (Late st Contact Info) Description 08/23/2023 Procedure Pass [facility], [address] [facility], 2nd Floor, [address] [place] [address] Social History Tobacco Use Types Packs/Day Years [...] with a working camera? Not on file Sex and Gender Information Value Date Recorded Sex Assigned at Not on file Legal Sex Male 10:54 AM EDT Gender Identity Not on file Sexual Orientation Not on file documented as of this encounter Plan of Treatment Upcoming Encounters Date Type Department Care Team (Late st Contact Info) Description 06/18/2025 2:30 PM EST Blood Draw [facility] [address] [place] [address], 7th Floor, [address] [place] [address] Tristen [place] MD, DPKSL [address] [place] [address] JOSE@[email or web address]. [email or web address] 06/18/2025 3:30 PM EST Office Visit [facility] [address] [place] [address], 7th Floor, [address] [place] [address] Tristen [place] MD, DPKSL [address] [place] [address] JOSE@[email or web address]. du documented as of this encounter Visit Diagnoses Not on filedocumented in this encounter Additional Health Concerns Infection Onset Date Last Indicated Resolved Time MRSA Comment:Resolved from MRSA Infection Resolution Note 09/11/2022 09/09/2022 09/12/2024 10: 04 AM EST CoV-Risk Comment:Per note documentation 11/07/2024 11/07/2024 2:13 PM EDT documented as of this encounter Care Teams Event Planning Manager Relationship Specialty Start Date End Date Osmel Zambrano PA-C PCP - General 02/22/22 Paddy Maya MD 55 [facility] 440 [place] [address] [email or web address] Vascular Surgery 08/03/22 Christina Rodriguez MBBS [address] [facility] 652 [place] [address] CHAY@[email or web address] Thoracic Surgery 08/03/22 Cedric King MD [address] [place] [address] Drive [address] [place] [address] Jewel Staker Cardiology 08/03/22 Enoch Jorge MD [address] [place] [address] [email or web address] Nephrology 08/03/22 Laverne Lagos MD 55 [facility] 440 [place] [address] FRED@[email or web address] Vascular Surgery 08/16/22 documented as of this encounter Additional Source Comments The information contained in this document represents components of the legal health record. It is not the complete legal health record.[facility]
--- OUTSIDE RECORDS SUMMARY | 2025-05-29 17:20 | XMS_ITS | Encounter Summary ---
Author Organization [facility] Address [address] [facility] [address] [place] [address] Phone Care Team Providers Care Bit Sander Name Role Phone Osmel Zambrano PA-C Primary Care Provider [phone] Paddy Maya MD Unavailable [phone] Christina Rodriguez Unavailable [phone] Cedric King MD Unavailable [phone] Enoch Jorge MD Unavailable [phone] Laverne Lagos MD Unavailable [phone] Encounter Details Date Type Department Care Team (Late Contact Info) Description 09/12/2022 Procedure Pass [facility] PERIOPERATIVE DEPT 55 [place] [id number] Social History Tobacco Use Types Packs/Day Years [...] Description 06/18/2025 2:30 PM EST Blood Draw [facility] [address] [place] [address], 7th Floor, [address] [place] [address] Tristen [place] MD, DPHIL [address] [place] [phone] [email or web address] 06/18/2025 3:30 PM EST Office Visit [facility] [address] [place] [address], 7th Floor, [address] [place] [address] Tristen [place] MD, DPHIL [address] [place] [address] [address] JOSE@[email or web address]. du documented as of this encounter Visit Diagnoses Not on filedocumented in this encounter Additional Health Concerns Infection Onset Date Last Indicated Resolved Time MRSA Comment:Resolved from MRSA Infection Resolution Note 09/11/2022 09/09/2022 09/12/2024 10: 04 AM EST CoV-Risk Comment:Per note documentation 11/07/2024 11/07/2024 2:13 PM EDT documented as of this encounter Care Teams Bit Sander Relationship Specialty Start Date End Date Osmel Zambrano PA-C PCP - General 02/22/22 Paddy Maya MD [address] [place] [address] [address] [place] [address] PAULINO@[email or web address] Vascular Surgery 08/03/22 Christina Rodriguez MBBS [address] [place] [address] 6[address] [place] [address] CHAY@[facility] Thoracic Surgery 08/03/22 Cedric King MD [address] [place] [address] Drive [address] [place] [address] Conservator Artifacts Cardiology 08/03/22 Enoch Jorge MD [address] [facility] 200 [place] [address] [email or web address] Nephrology 08/03/22 Laverne Lagos MD [address] [place] [address] FRED@[email or web address] Vascular Surgery 08/16/22 documented as of this encounter Additional Source Comments The information contained in this document represents components of the legal health record. It is not the complete legal health record.[facility]
--- OUTSIDE RECORDS SUMMARY | 2025-05-29 17:20 | XMS_ITS | Encounter Summary ---
Author Organization [facility] Address [address] [place] [address] Phone Care Team Providers Care Trim Machine Operator Name Role Phone Osmel Zambrano PA-C Primary Care Provider [phone] Paddy Maya MD Unavailable [phone] Christina Rodriguez Unavailable [phone] Cedric King MD Unavailable [phone] Enoch Jorge MD Unavailable [phone] Laverne Lagos MD Unavailable [phone] Encounter Details Date Type Department Care Team (Late st Contact Info) Description 10/30/2024 Procedure Pass [facility], Abad [address] [facility], 2nd Floor, [address] [place] [address] Social History Tobacco Use Types Packs/Day Years [...] PM EST Blood Draw [facility] [address] [facility], 7th Floor, [address] [place] [address] Tristen [place] MD, DPHIL [address] [place] [address] [place] [address] [email or web address] 06/18/2025 3:30 PM EST Office Visit [facility] [address] [facility], 7th Floor, [address] [place] [address] Tristen [place] MD, DPHIL [address] [place], [place] JOSE@[email or web address]. du documented as of this encounter Visit Diagnoses Not on filedocumented in this encounter Additional Health Concerns Infection Onset Date Last Indicated Resolved Time CoV-Risk Comment:Per note documentation 11/07/2024 11/07/2024 2:13 PM EDT documented as of this encounter Care Teams Trim Machine Operator Relationship Specialty Start Date End Date Osmel Zambrano PA-C PCP - General 02/22/22 Paddy Maya MD 55 [facility] 440 [place] [address] PAULINO@[email or web address] Vascular Surgery 08/03/22 Christina Rodriguez MBBS 55 [facility] 652 [place] [address] CHAY@[email or web address] Thoracic Surgery 08/03/22 Cedric King MD [address] [place] [address] [place] [address] Actuarial Science Teacher Cardiology 08/03/22 Enoch Jorge MD [address] [place] [address] [email or web address] Nephrology 08/03/22 Laverne Lagos MD [address] [place] [address] [email or web address] Vascular Surgery 08/16/22 documented as of this encounter Additional Source Comments The information contained in this document represents components of the legal health record. It is not the complete legal health record.[facility]
--- OUTSIDE RECORDS SUMMARY | 2025-05-29 17:20 | XMS_ITS | Encounter Summary ---
Author Organization [facility] Address [address] [place] [address] Phone Care Team Providers Care Shade Hanger Name Role Phone Osmel Zambrano PA-C Primary Care Provider Paddy Maya MD Unavailable [phone] Christina Rodriguez Unavailable [phone] Cedric King MD Unavailable [phone] Enoch Jorge MD Unavailable [phone] Laverne Lagos MD Unavailable [phone] Encounter Details Date Type Department Care Team (Late st Contact Info) Description 04/24/2025 Orders Only [facility] Center [facility] [address] [place] [address], 7th Floor, [address] [place] [address] Provider, MD Fredo [facility] [place] [address] Social History Tobacco Use Types Packs/Day Years [...] before we got money to buy more. Unable to assess 025 Within the past 6 months the food we bought just didn't last and we didn't have enough money to get more. Unable to assess 11/08/2024 Residential Stability Answer Date Recor ded What is your housing situation today? Unable to assess 11/08/2024 How many times have you moved in the past 12 mon th? Unable to assess 11/08/2024 Paying for Meds Answer Date Recorded Do you have trouble paying for medicines? Unable to assess 11/08/2024 Paying Utility Bills Answer Date Record ed Do you have trouble paying y our heating or electricity bill? Unable to assess 11/08/2024 Transportation Answer Date Recorded Has the lack of transportati on kept you from medical appointments or from getting medications? Unable to assess 11/08/2024 Digital Access Answer Date Recorded No 11/08/2024 No 11/08/2024 Do you have reliable internet access at home? Un able to assess 11/08/2024 Do you have a device (e.g., phone, tablet, computer) with a working camera? Unable to assess 11/08/2024 Intimate Partner Violence Answer Date R ecorded Are you denied basic needs s uch as food, clothing, or medical care? No 11/06/2024 In the past 12 months have y ou been in a relationship with a person who hurts, threatens, or tries to control you? No 11/06/2024 Are you denied basic needs s uch as food, clothing, or medical care? No 11/06/2024 In the past 12 months have y ou been in a relationship with a person who hurts, threatens, or tries to control you? No 11/06/2024 Sex and Gender Information Value Date Recorded Sex Assigned at Not on file Legal Sex Male 10:54 AM EDT Gender Identity Not on file Sexual Orientation Not on file documented as of this encounter Plan of Treatment Upcoming Encounters Date Type Department Care Team (Late st Contact Info) Description 06/18/2025 2:30 PM EST Blood Draw [facility] Center for Hematology 32 [facility], 7th Floor, [address] [place] [address] Tristen [place] MD, DPHIL [address] [place], [place] [address] [place] [address] JOSE@[email or web address]. [email or web address] 06/18/2025 3:30 PM EST Office Visit [facility] 32 [facility], 7th Floor, [address] [place], [place] [phone] Tristen [place] MD, DPHIL [address] [place], [place] [address] [place] [address] JOSE@[email or web address]. du documented as of this encounter Procedures Procedure Name Priority Date/Time Associated Diagnosis Comments OUTSIDE US IMAGING REPORT ONLY Routine 04/24/2025 2:05 PM EDT documented in this encounter Results * Outside US Imaging??Report Only (04/24/2025 2:05 PM EDT) us Historical Provider MD FUNES US OP Final Res ult documented in this encounter Visit Diagnoses Not on filedocumented in this encounter Care Teams Shade Hanger Relationship Specialty Start Date End Date Osmel Zambrano PA-C PCP - General 02/22/22 Paddy Maya MD [address] [place] [address] 440 [place] [address] PAULINO@[email or web address] Vascular Surgery 08/03/22 Christina Rodriguez MBBS [address] [place] [address] 652 [place] [address] CHAY@[email or web address] Thoracic Surgery 08/03/22 Cedric King MD [address] [place] [address] Drive [address] [place] [address] Branch Services Manager Cardiology 08/03/22 Enoch Jorge MD [address] [facility] 200 [place] [address] [email or web address] Nephrology 08/03/22 Laverne Lagos MD [address] [place] [address] FRED@[email or web address] Vascular Surgery 08/16/22 documented as of this encounter Additional Source Comments The information contained in this document represents components of the legal health record. It is not the complete legal health record.[facility]
--- OUTSIDE RECORDS SUMMARY | 2025-05-29 17:20 | XMS_ITS | Encounter Summary ---
Author Organization [facility] Address [address] [place] [address] Phone Care Team Providers Care Entry Level Electrician Name Role Phone Osmel Zambrano PA-C Primary Care Provider [phone] Paddy Maya MD Unavailable [phone] Christina Rodriguez Unavailable [phone] Cedric King MD Unavailable [phone] Enoch Jorge MD Unavailable [phone] Laverne Lagos MD Unavailable [phone] Encounter Details Date Type Department Care Team (Late st Contact Info) Description 11/08/2024 Procedure Pass [facility] PERIOPERATIVE DEPT [address] [place] [id number] Social History Tobacco Use Types Packs/Day Years [...] you moved in the past 12 mon ths? Unable to assess 11/08/2024 Paying for Meds [...] Description 06/18/2025 2:30 PM EST Blood Draw [facility] Center for Hematology 32 [facility], 7th Floor, [address] [place] [address] Tristen [place] MD, DPHIL [address] [place] [address] [email or web address] nazario 06/18/2025 3:30 PM EST Office Visit [facility] 32 [facility], 7th Floor, [address] [place] [address] Tristen [place] MD, DPHIL [address] [place] [address] JOSE@[email or web address]. du documented as of this encounter Visit Diagnoses Not on filedocumented in this encounter Care Teams Entry Level Electrician Relationship Specialty Start Date End Date Osmel Zambrano PA-C PCP - General 02/22/22 Paddy Maya MD [address] [place] [address] PAULINO@[email or web address] Vascular Surgery 08/03/22 Christina Rodriguez MBBS [address] [place] [address] 652 [place] [address] CHAY@[email or web address] Thoracic Surgery 08/03/22 Cedric King MD [address] [place] [address] Drive [address] [place] [address] Hide Examiner Cardiology 08/03/22 Enoch Jorge MD 100 [facility] 200 [place] [address] [email or web address] Nephrology 08/03/22 Laverne Lagos MD [address] [place] [address] 440 [place] [address] FRED@[email or web address] Vascular Surgery 08/16/22 documented as of this encounter Additional Source Comments The information contained in this document represents components of the legal health record. It is not the complete legal health record.[facility]
--- OUTSIDE RECORDS SUMMARY | 2025-05-29 17:20 | XMS_ITS | Encounter Summary ---
Author Organization [facility] Address [address] [facility] [address] [place] [address] Phone Care Team Providers Care Electron Beam Welder Setter Name Role Phone Osmel Zambrano PA-C Primary Care Provider Paddy Maya MD Unavailable [phone] Christina Rodriguez Unavailable [phone] Cedric King MD Unavailable [phone] Enoch Jorge MD Unavailable [phone] Laverne Lagos MD Unavailable [phone] Encounter Details Date Type Department Care Team (Late st Contact Info) Description 10/30/2024 Procedure Pass [facility] Imaging - Peripoerative Interventional Radiology [address] [place] [address], 4th [place] [address] Social History Tobacco Use Types Packs/Day Years [...] 06/18/2025 2:30 PM EST Blood Draw [facility] Center for Hematology [address] [facility], 7th Floor, [address] [place] [address] Tristen [place] MD, DPHIL [address] [place] [address] [place] [address] JOSE@[email or web address] 06/18/2025 3:30 PM EST Office Visit [facility] Center for Hematology [address] [facility], 7th Floor, [address] [place] [address] Tristen [place] MD, DPHIL [address] [place], [place] JOSE@[email or web address]. du documented as of this encounter Visit Diagnoses Not on filedocumented in this encounter Additional Health Concerns Infection Onset Date Last Indicated Resolved Time CoV-Risk Comment:Per note documentation 11/07/2024 11/07/2024 2:13 PM EDT documented as of this encounter Care Teams Electron Beam Welder Setter Relationship Specialty Start Date End Date Osmel Zambrano PA-C PCP - General 02/22/22 Paddy Maya MD 55 [facility] 440 [place] [address] PAULINO@[email or web address] Vascular Surgery 08/03/22 Christina Rodriguez MBBS 55 [facility] 652 [place] [address] CHAY@[facility] Thoracic Surgery 08/03/22 Cedric King MD [address] [place] [address] [place] [address] Damage Cutter Cardiology 08/03/22 Enoch Jorge MD [address] [place] [address] [email or web address] Nephrology 08/03/22 Laverne Lagos MD [address] [place] [address] FRED@[email or web address] Vascular Surgery 08/16/22 documented as of this encounter Additional Source Comments The information contained in this document represents components of the legal health record. It is not the complete legal health record.[facility]
--- OUTSIDE RECORDS SUMMARY | 2025-05-29 17:20 | XMS_ITS | Encounter Summary ---
Author Organization [facility] Address [address] [facility] [address] [place] [address] Phone Care Team Providers Care Research Analyst Name Role Phone Osmel Zambrano PA-C Primary Care Provider Paddy Maya MD Unavailable [phone] Christina Rodriguez Unavailable [phone] Cedric King MD Unavailable [phone] Enoch Jorge MD Unavailable [phone] Laverne Lagos MD Unavailable [phone] Encounter Details Date Type Department Care Team (Late st Contact Info) Description 03/19/2025 Procedure Pass [facility] [address] [facility], 6th [place] [address] Social History Tobacco Use Types Packs/Day Years [...] Description 06/18/2025 2:30 PM EST Blood Draw [facility] Center for Hematology [address] [facility], 7th Floor, [address] [place] [address] Tristen [place] MD, DPHIL [address] [address] [email or web address] 06/18/2025 3:30 PM EST Office Visit [facility] Center for Hematology [address] [facility], 7th Floor, [address] [place] [address] Tristen [place] MD, DPHIL [address] [place] [address] JOSE@[email or web address]. du documented as of this encounter Visit Diagnoses Not on filedocumented in this encounter Care Teams Research Analyst Relationship Specialty Start Date End Date Osmel Zambrano PA-C PCP - General 02/22/22 Paddy Maya MD [address] [place] [address] PAULINO@[email or web address] Vascular Surgery 08/03/22 Christina Rodriguez MBBS [address] [place] [address] 6[address] [place] [address] CHAY@[email or web address] Thoracic Surgery 08/03/22 Cedric King MD [address] [place] [address] Drive [address] [place] [address] Personal Injury Paralegal Cardiology 08/03/22 Enoch Jorge MD [address] [facility] 200 [place] [address] [email or web address] Nephrology 08/03/22 Laverne Lagos MD [address] [place] [address] 440 [place] [address] FRED@[email or web address] Vascular Surgery 08/16/22 documented as of this encounter Additional Source Comments The information contained in this document represents components of the legal health record. It is not the complete legal health record.[facility]
--- OUTSIDE RECORDS SUMMARY | 2025-05-29 17:20 | XMS_ITS | Encounter Summary ---
Author Organization [facility] Address [address] [facility] [address] [place] [address] Phone Care Team Providers Care Precision Filer Hand Name Role Phone Osmel Zambrano PA-C Primary Care Provider Paddy Maya MD Unavailable [phone] Christina Rodriguez Unavailable [phone] Cedric King MD Unavailable [phone] Enoch Jorge MD Unavailable [phone] Laverne Lagos MD Unavailable [phone] Encounter Details Date Type Department Care Team (Late st Contact Info) Description 08/21/2024 Procedure Pass [facility] for [facility] - [place] 32 [facility], 6th [place] [address] Social History Tobacco Use Types Packs/Day Years [...] Description 06/18/2025 2:30 PM EST Blood Draw [facility] [address] [place] [address], [facility] Floor, [address] [place] [address] Tristen Hamilton MD, DPHIL [address] [place] [address] [email or web address] nazario 06/18/2025 3:30 PM EST Office Visit [facility] [address] [place] [address], 7th Floor, [address] [place] [address] Tristen Hamilton MD, DPHIL [address] [place] [address] JOSE@[email or web address]. nazario documented as of this encounter Visit Diagnoses Not on filedocumented in this encounter Additional Health Concerns Infection Onset Date Last Indicated Resolved Time MRSA Comment:Resolved from MRSA Infection Resolution Note 09/11/2022 09/09/2022 09/12/2024 10: 04 AM EST CoV-Risk Comment:Per note documentation 11/07/2024 11/07/2024 03/27/202 5 2:13 PM EDT documented as of this encounter Care Teams Precision Filer Hand Relationship Specialty Start Date End Date Osmel Zambrano PA-C PCP - General 02/22/22 Paddy Maya MD [address] [place] [address] 440 [place] [address] PAULINO@[email or web address] Vascular Surgery 08/03/22 Christina Rodriguez MBBS [address] [place] [address] 652 [place] [address] CHAY@[email or web address] Thoracic Surgery 08/03/22 Cedric King MD [address] [place] [address] Drive [address] [place] [address] Sheet Metal Roofer Cardiology 08/03/22 Enoch Jorge MD 100 [facility] 200 [place] [address] [email or web address] Nephrology 08/03/22 Laverne Lagos MD [address] [place] [address] FRED@[email or web address] Vascular Surgery 08/16/22 documented as of this encounter Additional Source Comments The information contained in this document represents components of the legal health record. It is not the complete legal health record.[facility]
--- OUTSIDE RECORDS SUMMARY | 2025-05-29 17:20 | XMS_ITS | Encounter Summary ---
Author Organization [facility] Address 399 [facility] [address] [place] [address] Phone Care Team Providers Care Rn Teacher Name Role Phone Osmel Zambrano PA-C Primary Care Provider Paddy Maya MD Unavailable [phone] Christina Rodriguez Unavailable [phone] Cedric King MD Unavailable [phone] Enoch Jorge MD Unavailable [phone] Laverne Lagos MD Unavailable [phone] Encounter Details Date Type Department Care Team (Late st Contact Info) Description 03/19/2025 Procedure Pass [facility] [place] 32 [facility], 6th [place] [address] Social History Tobacco Use Types Packs/Day Years [...] Description 06/18/2025 2:30 PM EST Blood Draw [facility] 32 [facility], 7th Floor, [address] [place] [address] Tristen Hamilton MD, DPHIL [address] [address] [email or web address] nazario 06/18/2025 3:30 PM EST Office Visit [facility] 32 [facility], 7th Floor, [address] [place] [address] Tristen Hamilton MD, DPHIL [address] [place] [address] JOSE@[email or web address]. du documented as of this encounter Visit Diagnoses Not on filedocumented in this encounter Care Teams Rn Teacher Relationship Specialty Start Date End Date Osmel Zambrano PA-C PCP - General 02/22/22 Paddy Maya MD [address] [place] [address] PAULINO@[email or web address] Vascular Surgery 08/03/22 Christina Rodriguez MBBS [address] [place] [address] 652 [place] [address] CHAY@[facility] Thoracic Surgery 08/03/22 Cedric King MD [address] [place] [address] Drive [address] [place] [address] District Branch Manager Cardiology 08/03/22 Enoch Jorge MD [address] [facility] 200 [address] [email or web address] Nephrology 08/03/22 Laverne Lagos MD [address] [place] [address] 440 [place] [address] FRED@[email or web address] Vascular Surgery 08/16/22 documented as of this encounter Additional Source Comments The information contained in this document represents components of the legal health record. It is not the complete legal health record.[facility]
--- OUTSIDE RECORDS SUMMARY | 2025-05-29 17:20 | XMS_ITS | Encounter Summary ---
Author Organization [facility] Address [address] [place] [address] Phone Care Team Providers Care Electron Microscopist Name Role Phone Osmel Zambrano PA-C Primary Care Provider Paddy Maya MD Unavailable + [phone] Christina Rodriguez Unavailable [phone] Cedric King MD Unavailable [phone] Enoch Jorge MD Unavailable [phone] Laverne Lagos MD Unavailable [phone] Reason for Visit * Reason Comments Medication Refill Encounter Details Date Type Department Care Team (Late st Contact Info) Description 07/17/[address] [facility] 32 [facility], 7th Floor, [address] [place] [address] Angela Elam, EMERGENCY SERVICES DIRECTOR 55 [facility] [address] [place] [address] [email or web address] Medication Refill Social History Tobacco Use Types Packs/Day Years [...] Description 06/18/2025 2:[address] [facility] H[facility]ology [address] [place] [address], 7th Floor, [address] [place] [address] Tristen Hamilton MD, [address] [address] JOSE@[facility]. nazario 06/18/2025 3:30 PM EST Office Visit [facility]ology [address] [place] [address], 7th Floor, [address] [place] [address] Tristen Hamilton MD, [address] [address] JOSE@[facility]. du documented as of this encounter Visit Diagnoses Not on filedocumented in this encounter Additional Health Concerns Infection Onset Date Last Indicated Resolved Time MRSA Comment:Resolved from MRSA Infection Resolution Note 09/11/2022 09/09/2022 09/12/2024 10: 04 AM EST CoV-Risk Comment:Per note documentation 11/07/2024 11/07/2024 2:13 PM EDT documented as of this encounter Care Teams Electron Microscopist Relationship Specialty Start Date End Date Osmel Zambrano PA-C PCP - General 02/22/22 Paddy Maya MD [address] [place] [address] 440 [place] [address] PAULINO@[email or web address] Vascular Surgery 08/03/22 Christina Rodriguez MBBS [address] [place] [address] 652 [place] [address] CHAY@[facility] Thoracic Surgery 08/03/22 Cedric King MD [address] [place] [address] Drive [address] [place] [address] Otr Refrigerated Cdl Truck Driver Cardiology 08/03/22 Enoch Jorge MD [address] [place] [address] [email or web address] Nephrology 08/03/22 Laverne Lagos MD [address] [place] [address] FRED@[email or web address] Vascular Surgery 08/16/22 documented as of this encounter Additional Source Comments The information contained in this document represents components of the legal health record. It is not the complete legal health record.[facility]
--- OUTSIDE RECORDS SUMMARY | 2025-05-29 17:22 | XMS_ITS | Encounter Summary ---
Author Organization [facility] Address 399 [facility] [address] [place] [address] Phone Care Team Providers Care Bereavement Coordinator Name Role Phone Osmel Zambrano PA-C Primary Care Provider Paddy Maya MD Unavailable [phone] Christina Rodriguez Unavailable [phone] Cedric King MD Unavailable [phone] Enoch Jorge MD Unavailable [phone] Laverne Lagos MD Unavailable [phone] Encounter Details Date Type Department Care Team (Late st Contact Info) Description 08/21/2024 Procedure Pass [facility] for [facility]patient [facility] - CT [address] [facility], 6th [place] [address] Social History Tobacco Use Types Packs/Day Years [...] [facility] [place] [facility] [place] [facility] [address] [place] [address], [facility] Floor, [address] [place] [address] Tristen Hamilton MD, DPHIL [address] [place] [address] JOSE@[email or web address] nazario 06/18/2025 3:30 PM EST Office Visit [facility] [address] [place] [address], 7th Floor, [address] [place] [address] Tristen Hamilton MD, DPHIL [address] [place] [address] JOSE@[email or web address]. nazario documented as of this encounter Visit Diagnoses Not on filedocumented in this encounter Additional Health Concerns Infection Onset Date Last Indicated Resolved Time MRSA Comment:Resolved from MRSA Infection Resolution Note 09/11/2022 09/09/2022 09/12/2024 10: 04 AM EST CoV-Risk Comment:Per note documentation 11/07/2024 11/07/2024 03/27/202 5 2:13 PM EDT documented as of this encounter Care Teams Bereavement Coordinator Relationship Specialty Start Date End Date Osmel Zambrano PA-C PCP - General 02/22/22 Paddy Maya MD [address] [place] [address] 440 [place] [address] PAULINO@[email or web address] Vascular Surgery 08/03/22 Christina Rodriguez MBBS [address] [place] [address] 652 [place] [address] CHAY@[facility] Thoracic Surgery 08/03/22 Cedric King MD [address] [place] [address] Drive [address] [place] [address] Production Miner Cardiology 08/03/22 Enoch Jorge MD 100 [facility] 200 [place] [address] [email or web address] Nephrology 08/03/22 Laverne Lagos MD [address] [place] [address] FRED@[email or web address] Vascular Surgery 08/16/22 documented as of this encounter Additional Source Comments The information contained in this document represents components of the legal health record. It is not the complete legal health record.[facility]
--- OUTSIDE RECORDS SUMMARY | 2025-05-29 17:24 | XMS_ITS | Encounter Summary ---
Author Organization [facility] Address [address] [facility] [address] [place] [address] Phone Care Team Providers Care Emery Wheel Worker Name Role Phone Osmel Zambrano PA-C Primary Care Provider Paddy Maya MD Unavailable [phone] Christina Rodriguez Unavailable [phone] Cedric King MD Unavailable [phone] Enoch Jorge MD Unavailable [phone] Laverne Lagos MD Unavailable [phone] Encounter Details Date Type Department Care Team (Late st Contact Info) Description 11/08/2024 Procedure Pass [facility] Imaging - Peripoerative Interventional Radiology [address] [place] [address], 4th [place] [address] Social History Tobacco Use Types Packs/Day Years [...] 06/18/2025 2:30 PM EST Blood Draw [facility]ology 32 [facility], 7th Floor, [address] [place], [place] [address] Tristen Hamilton MD, DPHIL [address] [place] [address] [place] [id number] JOSE@[email or web address]. nazario 06/18/2025 3:30 PM EST Office Visit [facility] 32 [facility], 7th Floor, [address] [place] [address] Tristen Hamilton MD, DPHIL [address] JOSE@[email or web address]. du documented as of this encounter Visit Diagnoses Not on filedocumented in this encounter Care Teams Emery Wheel Worker Relationship Specialty Start Date End Date Osmel Zambrano PA-C PCP - General 02/22/22 Paddy Maya MD [address] [place] [address] PAULINO@[email or web address] Vascular Surgery 08/03/22 Christina Rodriguez MBBS [address] [place] [address] 652 [place] [address] CHAY@[facility] Thoracic Surgery 08/03/22 Cedric King MD [address] [place] [address] Drive [address] [place] [address] Technical Sales Director Cardiology 08/03/22 Enoch Jorge MD [address] [place] [address] josué@[email or web address] Nephrology 08/03/22 Laverne Lagos MD [address] [place] [address] 440 [place] [address] FRED@[email or web address] Vascular Surgery 08/16/22 documented as of this encounter Additional Source Comments The information contained in this document represents components of the legal health record. It is not the complete legal health record.[facility]
--- OUTSIDE RECORDS SUMMARY | 2025-05-29 17:24 | XMS_ITS | Encounter Summary ---
Author Organization [facility] Address [address] [place] [address] Phone Care Team Providers Care Core Paster Name Role Phone Osmel Zambrano PA-C Primary Care Provider [phone] Paddy Maya MD Unavailable [phone] Christina Rodriguez Unavailable [phone] Cedric King MD Unavailable [phone] Enoch Jorge MD Unavailable [phone] Laverne Lagos MD Unavailable [phone] Encounter Details Date Type Department Care Team (Late st Contact Info) Description 11/10/2024 Procedure Pass [facility], Abad 2 [address] [facility], 2nd Floor, [address] [place] [address] Social History Tobacco Use Types Packs/Day Years [...] Description 06/18/2025 2:30 PM EST Blood Draw [facility] Center for Hematology 32 [facility], 7th Floor, [address] [place], [place] [address] Tristen Hamilton MD, DPHIL [address] [place] [address] [place] [id number] JOSE@[email or web address]. nazario 06/18/2025 3:30 PM EST Office Visit [facility] for Hematology 32 [facility], 7th Floor, [address] [place] [address] Tristen Hamilton MD, DPHIL [address] JOSE@[facility]. du documented as of this encounter Visit Diagnoses Not on filedocumented in this encounter Care Teams Core Paster Relationship Specialty Start Date End Date Osmel Zambrano PA-C PCP - General 02/22/22 Paddy Maya MD [address] [place] [address] PAULINO@[email or web address] Vascular Surgery 08/03/22 Christina Rodriguez MBBS [address] [place] [address] 652 [place] [address] CHAY@[facility] Thoracic Surgery 08/03/22 Cedric King MD [address] [place] [address] Drive [address] [place] [address] Health Tech Cardiology 08/03/22 Enoch Jorge MD [address] [place] [address] [email or web address] Nephrology 08/03/22 Laverne Lagos MD [address] [place] [address] 440 [place] [address] FRED@[email or web address] Vascular Surgery 08/16/22 documented as of this encounter Additional Source Comments The information contained in this document represents components of the legal health record. It is not the complete legal health record.[facility]
--- OUTSIDE RECORDS SUMMARY | 2025-05-29 17:24 | XMS_ITS | Encounter Summary ---
Author Organization [facility] Address [address] [place] [address] Phone Care Team Providers Care Digital Photographer Name Role Phone Osmel Zambrano PA-C Primary Care Provider [phone] Paddy Maya MD Unavailable [phone] Christina Rodriguez Unavailable [phone] Cedric King MD Unavailable [phone] Enoch Jorge MD Unavailable [phone] Laverne Lagos MD Unavailable [phone] Encounter Details Date Type Department Care Team (Late st Contact Info) Description 11/15/2024 Procedure Pass [facility] [place] [place] [facility] [address] [place] [address] Social History Tobacco Use Types Packs/Day Years [...] Description 06/18/2025 2:30 PM EST Blood Draw [facility] [place] [place] [facility] 32 [facility], 7th Floor, [address] [place] [address] Tristen Hamilton MD, DPHIL [address] [place] [address] JOSE@[email or web address] nazario 06/18/2025 3:30 PM EST Office Visit [facility] [place] [place] [facility] 32 [facility], 7th Floor, [address] [place] [address] Tristen Hamilton MD, DPHIL [address] [place] [address] JOSE@[facility]. du documented as of this encounter Visit Diagnoses Not on filedocumented in this encounter Care Teams Digital Photographer Relationship Specialty Start Date End Date Osmel Zambrano PA-C PCP - General 02/22/22 Paddy Maya MD [address] [place] [address] PAULINO@[email or web address] Vascular Surgery 08/03/22 Christina Rodriguez MBBS [address] [place] [address] 652 [place] [address] CHAY@[facility] Thoracic Surgery 08/03/22 Cedric King MD [address] [place] [address] Drive [address] [place] [address] Transport Specialist Cardiology 08/03/22 Enoch Jorge MD 100 [facility] 200 [place] [address] [email or web address] Nephrology 08/03/22 Laverne Lagos MD [address] [place] [address] 440 [place] [address] FRED@[email or web address] Vascular Surgery 08/16/22 documented as of this encounter Additional Source Comments The information contained in this document represents components of the legal health record. It is not the complete legal health record.[facility]
--- OUTSIDE RECORDS SUMMARY | 2025-05-29 17:24 | XMS_ITS | Encounter Summary ---
Author Organization [facility] Address [address] [place] [address] Phone Care Team Providers Care Newspaper Delivery Driver Name Role Phone Osmel Zambrano PA-C Primary Care Provider [phone] Paddy Maya MD Unavailable [phone] Christina Rodriguez Unavailable [phone] Cedric King MD Unavailable [phone] Enoch Jorge MD Unavailable [phone] Laverne Lagos MD Unavailable [phone] Encounter Details Date Type Department Care Team (Late st Contact Info) Description 11/10/2024 Procedure Pass [facility] CT, [address] [facility], 2nd Floor, [address] [place] [address] Social History Tobacco Use Types Packs/Day Years [...] Description 06/18/2025 2:30 PM EST Blood Draw [facility] Center for Hematology 32 [facility], 7th Floor, [address] [place], [place] [address] Tristen Hamilton MD, DPHIL [address] [place] [address] [place] [id number] JOSE@[facility]. nazario 06/18/2025 3:30 PM EST Office Visit [facility] Center for H[facility]ology 32 [facility], 7th Floor, [address] [place] [address] Tristen Hamilton MD, DPHIL [address] JOSE@[facility]. du documented as of this encounter Visit Diagnoses Not on filedocumented in this encounter Care Teams Newspaper Delivery Driver Relationship Specialty Start Date End Date Osmel Zambrano PA-C PCP - General 02/22/22 Paddy Maya MD [address] [place] [address] PAULINO@[email or web address] Vascular Surgery 08/03/22 Christina Rodriguez MBBS [address] [place] [address] 652 [place] [address] CHAY@[facility] Thoracic Surgery 08/03/22 Cedric King MD [address] [place] [address] Drive [address] [place] [address] Visitor Services Technician Cardiology 08/03/22 Enoch Jorge MD [address] [place] [address] [email or web address] Nephrology 08/03/22 Laverne Lagos MD [address] [place] [address] 440 [place] [address] FRED@[facility] Vascular Surgery 08/16/22 documented as of this encounter Additional Source Comments The information contained in this document represents components of the legal health record. It is not the complete legal health record.[facility]
--- OUTSIDE RECORDS SUMMARY | 2025-05-29 17:24 | XMS_ITS | Encounter Summary ---
Author Organization [facility] Address [address] [place] [address] Phone Care Team Providers Care Documentation Clerk Name Role Phone Osmel Zambrano PA-C Primary Care Provider [phone] Paddy Maya MD Unavailable +[phone] Crhistina Rodriguez Unavailable [phone] Cedric King MD Unavailable [phone] Enoch Jorge MD Unavailable [phone] Laverne Lagos MD Unavailable [phone] Reason for Visit * Reason Comments Medication Refill Encounter Details Date Type Department Care Team (Late st Contact Info) Description 05/04/2025 Refill [facility] Vascular Surgery [address] [place] [address], 4th Floor, [address] [place] [address] Navarro Velázquez MD, MSc [address] [address] [email or web address] Medication Refill Social History Tobacco Use Types [...] [facility] [place] [facility] [address] [facility], 7th Floor, [address] [place] [address] Tristen [place] MD, DPHIL [address] [place] [address] [email or web address] du 06/18/2025 3:30 PM EST Office Visit [facility] Center for Hematology [address] [place] [address], 7th Floor, [address] [place] [address] Tristen [place] MD, DPHIL [address] [place] [address] JOSE@[email or web address] du documented as of this encounter Visit Diagnoses Not on filedocumented in this encounter Care Teams Documentation Clerk Relationship Specialty Start Date End Date Osmel Zambrano PA-C PCP - General 02/22/22 Paddy Maya MD [address] [place] [address] 440 [place] [address] PAULINO@[email or web address] Vascular Surgery 08/03/22 Christina Rodriguez MBBS [address] [place] [address] 652 [place] [address] CHAY@[email or web address] Thoracic Surgery 08/03/22 Cedric King MD [address] [place] [address] Drive [address] [place] [address] Rehab Technician Cardiology 08/03/22 Enoch Jorge MD 100 [facility] [address] [place] [address] [email or web address] Nephrology 08/03/22 Laverne Lagos MD [address] [place] [address] FRED@[email or web address] Vascular Surgery 08/16/22 documented as of this encounter Additional Source Comments The information contained in this document represents components of the legal health record. It is not the complete legal health record.[facility]
--- OUTSIDE RECORDS SUMMARY | 2025-05-29 17:24 | XMS_ITS | Encounter Summary ---
Author Organization [facility] Address [address] [place] [address] Phone Care Team Providers Care Television Installer Helper Name Role Phone Osmel Zambrano PA-C Primary Care Provider [phone] Paddy Maya MD Unavailable [phone] Christina Rodriguez Unavailable [phone] Cedric King MD Unavailable [phone] Enoch Jorge MD Unavailable [phone] Laverne Lagos MD Unavailable [phone] Reason for Visit * Reason Comments Medication Refill Encounter Details Date Type Department Care Team (Late st Contact Info) Description 05/08/2025 Refill [facility] Vascular Surgery [address] [facility], 4th Floor, [address] [place] [address] Emily Iqabl, BUSINESS SUPPORT LIAISON 55 [place] [address] [email or web address] Medication Refill Social History Tobacco Use Types [...] on file documented as of this encounter Progress Notes * Emily Iqbal, MICHELLE - 05/08/2025 9:13 AM EDT Needs to obtain from PCP documented in this encounter Plan of Treatment Upcoming Encounters Date Type Department Care Team (Late st Contact Info) Description 06/18/2025 2:30 PM EST Blood Draw [facility] Center for Hematology [address] [place] [address], 7th Floor, [address] [place] [address] Tristen [place] MD, DPIDL [address] [place] [address] JOSE@[email or web address] 06/18/2025 3:30 PM EST Office Visit [facility] for Hematology [address] [place] [address], 7th Floor, [address] [place] [address] Tristen [place] MD, DPIDL [address] [place] [address] JOSE@[email or web address] documented as of this encounter Visit Diagnoses Diagnosis Hyperlipidemia, unspecified hyperlipidemia type documented in this encounter Care Teams Television Installer Helper Relationship Specialty Start Date End Date Osmel Zambrano PA-C PCP - General 02/22/22 Paddy Maya MD [address] [place] [address] 440 [place] [address] PAULINO@[email or web address] Vascular Surgery 08/03/22 Christina Rodriguez MBBS [address] [place] [address] 652 [place] [address] CHAY@[email or web address] Thoracic Surgery 08/03/22 Cedric King MD [address] [place] [address] [address] [place] [address] Partition Notcher Cardiology 08/03/22 Enoch Jorge MD [address] [place] [address] [email or web address] Nephrology 08/03/22 Laverne Lagos MD [address] [place] [address] FRED@[email or web address] Vascular Surgery 08/16/22 documented as of this encounter Additional Source Comments The information contained in this document represents components of the legal health record. It is not the complete legal health record.[facility]
--- OUTSIDE RECORDS SUMMARY | 2025-05-29 17:24 | XMS_ITS | Encounter Summary ---
Author Organization [facility] Address [address] [place] [address] Phone Care Team Providers Care Billet Worker Name Role Phone Osmel Zambrano PA-C Primary Care Provider [phone] Paddy Maya MD Unavailable [phone] Christina Rodriguez Unavailable [phone] Cedric King MD Unavailable [phone] Enoch Jorge MD Unavailable [phone] Laverne Lagos MD Unavailable [phone] Reason for Visit * Reason Comments Medication Refill Encounter Details Date Type Department Care Team (Late st Contact Info) Description 05/08/2025 Refill [facility] [place] [facility] Vascular Surgery [address] [place] [address], 4th Floor, [address] [place] [address] Navarro Velázquez MD, MSc [address] [address] [email or web address] Medication Refill Social History Tobacco Use Types [...] of this encounter Progress Notes * Emily IqbalMICHELLE - 05/08/2025 9:13 AM EDT Needs to obtain from PCP. documented in this encounter Plan of Treatment Upcoming Encounters Date Type Department Care Team (Late st Contact Info) Description 06/18/2025 2:30 PM EST Blood Draw [facility] [place] [facility] Center for Hematology [address] [place] [address], 7th Floor, [address] [place] [address] Tristen [place] MD, DPHIL [address] [place] [address] [email or web address] 06/18/2025 3:30 PM EST Office Visit [facility] [address] [place] [address], 7th Floor, [address] [place], [place] [phone] Tristen [place] MD, DPOHL [address] [place] [address] [email or web address] documented as of this encounter Visit Diagnoses Not on filedocumented in this encounter Care Teams Billet Worker Relationship Specialty Start Date End Date Osmel Zambrano PA-C PCP - General 02/22/22 Paddy Maya MD [address] [place] [address] [address] [place] [address] PAULINO@[email or web address] Vascular Surgery 08/03/22 Christina Rodriguez MBBS [address] [place] [address] 652 [place] [address] CHAY@[email or web address] Thoracic Surgery 08/03/22 Cedric [place] MD [address] [place] [address] Drive [address] [place] [address] Auto Parts Handler Cardiology 08/03/22 Enoch Jorge MD [address] [place] [address] [email or web address] Nephrology 08/03/22 Laverne Lagos MD [address] [place] [address] FRED@[email or web address] Vascular Surgery 08/16/22 documented as of this encounter Additional Source Comments The information contained in this document represents components of the legal health record. It is not the complete legal health record.[facility]
--- OUTSIDE RECORDS SUMMARY | 2025-05-29 17:24 | XMS_ITS | Encounter Summary ---
Author Organization [facility] Address [address] [place] [address] Phone Care Team Providers Care Supervising Appraiser Name Role Phone Osmel Zambrano PA-C Primary Care Provider Encounter Details Date Type Department Care Team (Late st Contact Info) Description 12/04/2020 Orders Only [facility] [address] [place] [address] Enoch Jorge MD [address] [facility] 204 [place] [address] Stage 3b chronic kidney disease (HCC); Urinary incontinence, not otherwise specified; Hypertensive chronic kidney disease; Dissection of thoracic aorta (HCC) Social History Tobacco Use Types Packs/Day Years Used Date Smoking Tobacco: Never Assessed Sex and Gender Information Value Date Recorded Sex Assigned at Not on file Legal Sex Male 11:59 AM EDT Gender Identity Not on file Sexual Orientation Not on file COVID-19 Exposure Response Date Recorded In the last month, have you been in contact with someone who was confirmed or suspected to have Coronavirus / COVID-19? No / Unsure 11/30/2020 8:12 AM EDT documented as of this encounter Plan of Treatment Upcoming Encounters Date Type Department Care Team (Late st Contact Info) Description 10/02/2025 10:00 AM EST Office Visit [facility] [place] [facility] [address] [facility] [address] [place] [address] Janett Vick ARNP [address] [facility] [address] [place] [address] documented as of this encounter Visit Diagnoses Diagnosis Stage 3b chronic kidney disease (HCC) Urinary incontinence, not otherwise specified Hypertensive chronic kidney disease Dissection of thoracic aorta (HCC) documented in this encounter Care Teams Supervising Appraiser Relationship Specialty Start Date End Date Osmel Zambrano PA-C [address] [place] [address] PCP - General Physician Lining Machine Operator 05/07/21 documented as of this encounter
--- OUTSIDE RECORDS SUMMARY | 2025-05-29 17:24 | XMS_ITS | Encounter Summary ---
Author Organization [facility] Address [address] [place] [address] Phone Care Team Providers Care Buyer Agent Name Role Phone Osmel Zambrano PA-C Primary Care Provider [phone] Paddy Maya MD Unavailable [phone] Christina Rodriguez Unavailable [phone] Cedric King MD Unavailable [phone] Enoch Jorge MD Unavailable [phone] Laverne Lagos MD Unavailable [phone] Encounter Details Date Type Department Care Team (Late st Contact Info) Description 01/02/2024 Procedure Pass [facility] PERIOPERATIVE DEPT 55 [place] [id number] Social History Tobacco Use Types Packs/Day Years [...] 4:00 PM EDT Oralia Porras RN * [place] Suicide Severity Rating Scale (Screener/Recent Self-Report) Question [...] 06/18/2025 2:30 PM EST Blood Draw [facility] [facility] Center for Hematology [address] [place] [address], 7th Floor, [address] [place] [address] Tristen [place] MD, DPHIL [address] [place] [address] JOSE@[email or web address] nazario 06/18/2025 3:30 PM EST Office Visit [facility] Center for Hematology [address] [place] [address], 7th Floor, [address] [place] [address] Tristen [place] MD, DPHIL 55 [facility] [place] [address] JOSE@[email or web address]. du documented as of this encounter Visit Diagnoses Not on filedocumented in this encounter Additional Health Concerns Infection Onset Date Last Indicated Resolved Time MRSA Comment:Resolved from MRSA Infection Resolution Note 09/11/2022 09/09/2022 09/12/2024 10: 04 AM EST CoV-Risk Comment:Per note documentation 11/07/2024 11/07/2024 2:13 PM EDT documented as of this encounter Care Teams Buyer Agent Relationship Specialty Start Date End Date Osmel Zambrano PA-C PCP - General 02/22/22 Paddy Maya MD [address] [place] [address] 440 [place] [address] PAULINO@[email or web address] Vascular Surgery 08/03/22 Christina Rodriguez MBBS [address] [place] [address] 652 [place] [address] CHAY@[facility] Thoracic Surgery 08/03/22 Cedric [place] MD [address] [place] [address] Drive [address] [place] [address] Radio Repairer Cardiology 08/03/22 Enoch Jorge MD [address] [facility] 200 [place] [address] [email or web address] Nephrology 08/03/22 Laverne Lagos MD [address] [place] [address] FRED@[email or web address] Vascular Surgery 08/16/22 documented as of this encounter Additional Source Comments The information contained in this document represents components of the legal health record. It is not the complete legal health record.[facility]
--- OUTSIDE RECORDS SUMMARY | 2025-05-29 17:24 | XMS_ITS | Encounter Summary ---
Author Organization [facility] Address [address] [place] [address] Phone Care Team Providers Care Mobile Designer Name Role Phone Osmel Zambrano PA-C Primary Care Provider Paddy Maya MD Unavailable [phone] Christina Rodriguez Unavailable [phone] Cedric King MD Unavailable [phone] Enoch Jorge MD Unavailable [phone] Laverne Lagos MD Unavailable [phone] Encounter Details Date Type Department Care Team (Late st Contact Info) Description 11/14/2023 Procedure Pass [facility] Cardiac US [address] [place] [address] Social History Tobacco Use Types Packs/Day Years [...] 06/18/2025 2:30 PM EST Blood Draw [facility] Center for Hematology [address] [facility], 7th Floor, [address] [place] [address] Tristen [place] MD, DPHIL [address] [place] [address] JOSE@[email or web address] 06/18/2025 3:30 PM EST Office Visit [facility] Center for Hematology [address] [place] [address], 7th Floor, [address] [place] [address] Tristen [place] MD, DPMAL [address] [place] [address] JOSE@[email or web address]. du documented as of this encounter Visit Diagnoses Not on filedocumented in this encounter Additional Health Concerns Infection Onset Date Last Indicated Resolved Time MRSA Comment:Resolved from MRSA Infection Resolution Note 09/11/2022 09/09/2022 09/12/2024 10: 04 AM EST CoV-Risk Comment:Per note documentation 11/07/2024 11/07/2024 2:13 PM EDT documented as of this encounter Care Teams Mobile Designer Relationship Specialty Start Date End Date Osmel Zambrano PA-C PCP - General 02/22/22 Paddy Maya MD [address] [address] PAULINO@[email or web address] Vascular Surgery 08/03/22 Christina Rodriguez MBBS [address] [place] [address] 652 [place] [address] CHAY@[facility] Thoracic Surgery 08/03/22 Cedric [place] MD [address] [place] [address] Drive [address] [place] [address] Oracle Programmer Analyst Cardiology 08/03/22 Enoch Jorge MD [address] [place] [address] [email or web address] Nephrology 08/03/22 Laverne Lagos MD [address] [place] [address] 440 [place] [address] FRED@[email or web address] Vascular Surgery 08/16/22 documented as of this encounter Additional Source Comments The information contained in this document represents components of the legal health record. It is not the complete legal health record.[facility]
== END 2025-05-29 14:34 | disposition home or self-care (01) ==
LOC: HO.HUSH 13:39
PROVIDERS: PCP Physician Assistant Medical; Visit Provider Nurse Practitioner Family
DX: R35.1 Nocturia (principal); R39.15 Urgency of urination; N52.9 Male erectile dysfunction, unspecified
CPT/HCPCS: 99204

== ENCOUNTER → 2025-05-29 13:39 | Outpatient (BNVA) | payer OTHER, SELFPAY | PROVIDERS: PCP Physician Assistant Medical; Visit Provider Nurse Practitioner Family | DX: R35.1 Nocturia (principal); R39.15 Urgency of urination; Z13.9 Encounter for screening, unspecified; N52.9 Male erectile dysfunction, unspecified | CPT/HCPCS: 51798; 99202 ==

== ENCOUNTER 2025-07-29 10:31 | Outpatient (REF) | payer OTHER, SELFPAY ==
--- OUTSIDE RECORDS SUMMARY | 2025-07-29 13:16 | XMS_ITS | Encounter Summary ---
Author Organization [facility] Address [address] [place] [address] Phone Care Team Providers Care Electrical Products Engineer Name Role Phone Osmel Zambrano PA-C Primary Care Provider Paddy Maya MD Unavailable [phone] Christina Rodriguez Unavailable [phone] Cedric King MD Unavailable [phone] Enoch Jorge MD Unavailable [phone] Laverne Lagos MD Unavailable [phone] Encounter Details Date Type Department Care Team (Late st Contact Info) Description 01/02/2024 Procedure Pass [facility] Cardiac US [address] [place] [address] Social History Tobacco Use Types Packs/Day Years [...] 4:00 PM EDT Oralia Porras RN * [place] Suicide Severity Rating Scale (Screener/Recent Self-Report) Question [...] Care Team (Late st Contact Info) Description 09/23/2025 12:00 PM EST Blood Draw [facility] Center for Hematology [address] [place] [address], 7th Floor, [address] [place] [address] Tristen [place] MD, DPAZL [address] [place] [address] JOSE@[email or web address] nazario 09/23/2025 1:00 PM EST Office Visit [facility] Center for Hematology [address] [place] [address], 7th Floor, [address] [place] [address] Tristen [place] MD, DPHIL 55 [facility] [id number] [place] [address] JOSE@[email or web address]. du documented as of this encounter Visit Diagnoses Not on filedocumented in this encounter Additional Health Concerns Infection Onset Date Last Indicated Resolved Time MRSA Comment:Resolved from MRSA Infection Resolution Note 09/11/2022 09/09/2022 09/12/2024 10: 04 AM EST CoV-Risk Comment:Per note documentation 11/07/2024 11/07/2024 2:13 PM EDT documented as of this encounter Care Teams Electrical Products Engineer Relationship Specialty Start Date End Date Osmel Zambrano PA-C PCP - General 02/22/22 Paddy Maya MD [address] [place] [address] 440 [place] [address] PAULINO@[email or web address] Vascular Surgery 08/03/22 Christina Rodriguez MBBS [address] [place] [address] 652 [place] [address] CHAY@[facility] Thoracic Surgery 08/03/22 Cedric [place] MD [address] [place] [address] [address] [place] [address] Supervisor Cartography Cardiology 08/03/22 Enoch Jorge MD [address] [place] [address] [email or web address] Nephrology 08/03/22 Laverne Lagos MD [address] [place] [address] FRED@[email or web address] Vascular Surgery 08/16/22 documented as of this encounter Additional Source Comments The information contained in this document represents components of the legal health record. It is not the complete legal health record.[facility]
--- OUTSIDE RECORDS SUMMARY | 2025-07-29 13:16 | XMS_ITS | Encounter Summary ---
Author Organization [facility] Address [address] [place] [address] Phone Care Team Providers Care Publications Production Supervisor Name Role Phone Osmel Zambrano PA-C Primary Care Provider [phone] Padyd Maya MD Unavailable [phone] Christina Rodriguez Unavailable [phone] Cedric King MD Unavailable [phone] Enoch Jorge MD Unavailable [phone] Laverne Lagos MD Unavailable +[phone] Encounter Details Date Type Department Care Team (Late st Contact Info) Description 01/03/2024 Procedure Pass [facility] [place] [place] 55 [place] [phone] Social History Tobacco Use Types Packs/Day Years [...] Description 09/23/2025 12:00 PM EST Blood Draw [facility] Center for Hematology [address] [place] [address], [facility] Floor, [address] [place] [address] Tristen [place] MD, DPHIL [address] [place] [address] [email or web address] nazario 09/23/2025 1:00 PM EST Office Visit [facility] for Hematology [address] [place] [address], [facility] Floor, [address] [place] [address] Tristen [place] MD, DPRIL [address] [place] [address] JOSE@[email or web address] nazario documented as of this encounter Visit Diagnoses Not on filedocumented in this encounter Additional Health Concerns Infection Onset Date Last Indicated Resolved Time MRSA Comment:Resolved from MRSA Infection Resolution Note 09/11/2022 09/09/2022 09/12/2024 10: 04 AM EST CoV-Risk Comment:Per note documentation 11/07/2024 11/07/2024 2:13 PM EDT documented as of this encounter Care Teams Publications Production Supervisor Relationship Specialty Start Date End Date Osmel Zambrano PA-C PCP - General 02/22/22 Paddy Maya MD [address] [place] [address] 440 [place] [address] PAULINO@[facility] Vascular Surgery 08/03/22 Christina Rodriguez MBBS [address] [place] [address] 652 [place] [address] CHAY@[facility] Thoracic Surgery 08/03/22 Cedric King MD [address] [place] [address] [address] [place] [address] Scrap Baller Cardiology 08/03/22 Enoch Jorge MD 100 [facility] [address]arden [facility] 200 [place] [address] josué@[email or web address] Nephrology 08/03/22 Laverne Lagos MD [address] [place] [address] FRED@[email or web address] Vascular Surgery 08/16/22 documented as of this encounter Additional Source Comments The information contained in this document represents components of the legal health record. It is not the complete legal health record.[facility]
--- OUTSIDE RECORDS SUMMARY | 2025-07-29 13:16 | XMS_ITS | Encounter Summary ---
Author Organization [facility] Address [address] [facility] [address] [place] [address] Phone Care Team Providers Care Can Closing Machine Tender Name Role Phone Osmel Zambrano PA-C Primary Care Provider [phone] Paddy Maya MD Unavailable + [phone] Christina Rodriguez Unavailable [phone] Cedric King MD Unavailable [phone] Enoch Jorge MD Unavailable [phone] Laverne Lagos MD Unavailable [phone] Reason for Referral * - Closed Specialty Diagnoses / Procedures Referred By Contac t Referred To Contact Radiology Diagnoses Thoracic aortic aneurysm without rupture, unspecified part 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 Procedures US Lower Extremity Arteries (SPARKLE) Physio Limited Bilat US Lower Extremity Arteries (SPARKLE) Physio Limited Unilat Paddy Maya MD Phone: tel: fax: mailto:[email or web address] Referral ID Status Reason Start Date Expiration Date Visits Re quested Visits Authorized [id number] Closed 01/01/2024 12/31/2024 1 1 Encounter Details Date Type Department Care Team (Latest Contact Info) Description 02/08/2024 Ancillary Orders [facility] V[facility] Surgery [address] [facility], 4th Floor, [address] [place] [address] Paddy Maya MD 55 [facility] 440 [place] [address] PAULINO@[email or web address] Thoracic aortic aneurysm without rupture, unspecified part [...] Description 09/23/2025 12:00 PM EST Blood Draw [facility] [address] [facility], 7th Floor, [address] [place] [address] Tristen Hamilton MD, DPMSL [address] [address] JOSE@[email or web address] 09/23/2025 1:00 PM EST Office Visit [facility] [address] [facility], 7th Floor, [address] [place] [address] Tristen Hamilton MD, DPMSL [address] [phone] JOSE@[email or web address]. [email or web address] documented as of this encounter Results [...] the report originally createdby Sharla Mulligan. Paddy aMya MD [facility] VASCULAR Fin al Result documented in this [...] documented as of this encounter Care Teams Can Closing Machine Tender Relationship Specialty Start Date End Date Osmel Zambrano PA-C PCP - General 02/22/22 Paddy Maya MD [address] [place] [address] 440 [place] [address] PAULINO@[email or web address] Vascular Surgery 08/03/22 Christina Rodriguez MBBS [address] [place] [address] 652 [place] [address] CHAY@[facility] Thoracic Surgery 08/03/22 Cedric King MD [address] [place] [address] Dr Elmer [address] [place] [address] Mailmaster Cardiology 08/03/22 Enoch Jorge MD [address] [place] [address] [facility] 200 [place] [address] [email or web address] Nephrology 08/03/22 Laverne Lagos MD [address] [place] [address] 440 [place] [address] FRED@[email or web address] Vascular Surgery 08/16/22 documented as of this encounter Additional Source Comments The information contained in this document represents components of the legal health record. It is not the complete legal health record.[facility]
--- OUTSIDE RECORDS SUMMARY | 2025-07-29 13:16 | XMS_ITS | Encounter Summary ---
Author Organization [facility] Address [address] [place] [address] Phone Care Team Providers Care Windows Deployment Technician Name Role Phone Osmel Zambrano PA-C Primary Care Provider Paddy Maya MD Unavailable [phone] Christina Rodriguez Unavailable [phone] Cedric King MD Unavailable [phone] Enoch Jorge MD Unavailable [phone] Laverne Lagos MD Unavailable [phone] Encounter Details Date Type Department Care Team (Late st Contact Info) Description 01/07/2024 Procedure Pass [facility], Abad 2 [address] [facility], 2nd Floor, [address] [place] [address] Social History Tobacco Use Types Packs/Day Years [...] Description 09/23/2025 12:00 PM EST Blood Draw [facility] [address] [place] [address], [facility] Floor, [address] [place] [address] Tristen Hamilton MD, DPHIL [address] [place] [address] [email or web address] nazario 09/23/2025 1:00 PM EST Office Visit [facility] [address] [place] [address], [facility] Floor, [address] [place] [address] Tristen Hamilton MD, DPHIL [address] [place] [address] JOSE@[email or web address]. nazario documented as of this encounter Visit Diagnoses Not on filedocumented in this encounter Additional Health Concerns Infection Onset Date Last Indicated Resolved Time MRSA Comment:Resolved from MRSA Infection Resolution Note 09/11/2022 09/09/2022 09/12/2024 10: 04 AM EST CoV-Risk Comment:Per note documentation 11/07/2024 11/07/2024 2:13 PM EDT documented as of this encounter Care Teams Windows Deployment Technician Relationship Specialty Start Date End Date Osmel Zambrano PA-C PCP - General 02/22/22 Paddy Maya MD [address] [place] [address] [address] [place] [address] PAULINO@[email or web address] Vascular Surgery 08/03/22 Christina Rodriguez MBBS [address] [place] [address] 652 [place] [address] CHAY@[email or web address] Thoracic Surgery 08/03/22 Cedric King MD [address] [place] [address] Dr Payne [address] [place] [phone] Millstone Cleaner Cardiology 08/03/22 Enoch Jorge MD 100 [facility] Fina [facility] 200 [place] [address] [email or web address] Nephrology 08/03/22 Laverne Lagos MD [address] [place] [address] FRED@[email or web address] Vascular Surgery 08/16/22 documented as of this encounter Additional Source Comments The information contained in this document represents components of the legal health record. It is not the complete legal health record.[facility]
--- OUTSIDE RECORDS SUMMARY | 2025-07-29 13:16 | XMS_ITS | Encounter Summary ---
Author Organization [facility] Address [address] [place] [address] Phone Care Team Providers Care Director Of Market Intelligence Name Role Phone Osmel Zambrano PA-C Primary Care Provider Paddy Maya MD Unavailable [phone] Christina Rodriguez Unavailable [phone] Cedric King MD Unavailable [phone] Enoch Jorge MD Unavailable [phone] Laverne Lagos MD Unavailable [phone] Encounter Details Date Type Department Care Team (Late st Contact Info) Description 01/07/2024 Procedure Pass [facility], Abad 2 [address] [facility], 2nd Floor, [address] [place] [address] Social History Tobacco Use Types Packs/Day Years [...] Description 09/23/2025 12:00 PM EST Blood Draw [facility] Center for Hematology [address] [place] [address], [facility] Floor, [address] [place] [address] Tristen Hamilton MD, DPHIL [address] [place] [address] JOSE@[email or web address] nazario 09/23/2025 1:00 PM EST Office Visit [facility] [address] [place] [address], [facility] Floor, [address] [place] [address] Tristen Hamilton MD, DPHIL [address] [place] [address] JOSE@[email or web address]. nazario documented as of this encounter Visit Diagnoses Not on filedocumented in this encounter Additional Health Concerns Infection Onset Date Last Indicated Resolved Time MRSA Comment:Resolved from MRSA Infection Resolution Note 09/11/2022 09/09/2022 09/12/2024 10: 04 AM EST CoV-Risk Comment:Per note documentation 11/07/2024 11/07/2024 2:13 PM EDT documented as of this encounter Care Teams Director Of Market Intelligence Relationship Specialty Start Date End Date Osmel Zambrano PA-C PCP - General 02/22/22 Paddy Maya MD [address] [place] [address] 440 [place] [address] PAULINO@[email or web address] Vascular Surgery 08/03/22 Christina Rodriguez MBBS [address] [place] [address] 652 [place] [address] CHAY@[email or web address] Thoracic Surgery 08/03/22 Cedric King MD [address] [place] [address] Dr Payne [address] [place] [phone] Administrative Assistant Data Entry Cardiology 08/03/22 Enoch Jorge MD 100 [facility] Fina [facility] 200 [place] [address] [email or web address] Nephrology 08/03/22 Laverne Lagos MD [address] [place] [address] FRED@[email or web address] Vascular Surgery 08/16/22 documented as of this encounter Additional Source Comments The information contained in this document represents components of the legal health record. It is not the complete legal health record.[facility]
--- OUTSIDE RECORDS SUMMARY | 2025-07-29 13:16 | XMS_ITS | Clinical Summary ---
Author Organization [facility] Address [address] [place] [address] Care Team Providers Care Casino Games Dealer Name Role Phone Unknown Primary Care Provider [phone] Social History Tobacco Use Types Packs/Day Years [...] 2) 2009 Influenza Vaccine 03/14/2025 COVID-19 Vaccine (1 - 2024-2 6 season) 2025 RSV Vaccine 50 years and [...] on file Type:Not on file Address: [place] [id number] Care Teams Casino Games Dealer Relationship Specialty Start Date End Date Unknown Unknow Provider Address PCP - General 11/06/24
--- OUTSIDE RECORDS SUMMARY | 2025-07-29 13:17 | XMS_ITS | Encounter Summary ---
Author Organization [facility] Address [address] [place] [address] Phone Care Team Providers Care Sterilizer Operator Name Role Phone Osmel Zambrano PA-C Primary Care Provider Paddy Maya MD Unavailable [phone] Christina Rodriguez Unavailable [phone] Cedric King MD Unavailable [phone] Enoch Jorge MD Unavailable [phone] Laverne Lagos MD Unavailable [phone] Encounter Details Date Type Department Care Team (Late st Contact Info) Description 09/04/2024 Procedure Pass [facility] Cardiac US [address] [place] [address] Social History Tobacco Use Types Packs/Day Years [...] Description 09/23/2025 12:00 PM EST Blood Draw [facility] [address] [place] [address], [facility] Floor, [address] [place] [address] Tristen Hamilton MD, DPHIL [address] [place] [address] [email or web address] nazario 09/23/2025 1:00 PM EST Office Visit [facility] [address] [place] [address], [facility] Floor, [address] [place] [address] Tristen Hamilton MD, DPMOL [address] [place] [address] JOSE@[email or web address] nazario documented as of this encounter Visit Diagnoses Not on filedocumented in this encounter Additional Health Concerns Infection Onset Date Last Indicated Resolved Time MRSA Comment:Resolved from MRSA Infection Resolution Note 09/11/2022 09/09/2022 09/12/2024 10: 04 AM EST CoV-Risk Comment:Per note documentation 11/07/2024 11/07/2024 2:13 PM EDT documented as of this encounter Care Teams Sterilizer Operator Relationship Specialty Start Date End Date Osmel Zambrano PA-C PCP - General 02/22/22 Paddy Maya MD 55 [facility] 440 [place] [address] PAULINO@[email or web address] Vascular Surgery 08/03/22 Christina Rodriguez MBBS [address] [place] [address] 652 [place] [address] CHAY@[facility] Thoracic Surgery 08/03/22 Cedric King MD [address] [place] [address] Dr Payne [address] [place] [address] Laborer Cheesemaking Cardiology 08/03/22 Enoch Jorge MD [address] [facility] Fina [facility] 200 [place] [address] [email or web address] Nephrology 08/03/22 Laverne Lagos MD [address] [place] [address] FRED@[email or web address] Vascular Surgery 08/16/22 documented as of this encounter Additional Source Comments The information contained in this document represents components of the legal health record. It is not the complete legal health record.[facility]
--- OUTSIDE RECORDS SUMMARY | 2025-07-29 13:17 | XMS_ITS | Encounter Summary ---
Author Organization [facility] Address [address] [place] [address] Phone Care Team Providers Care Petroleum Refinery Worker Name Role Phone Osmel Zambrano PA-C Primary Care Provider [phone] Paddy Maya MD Unavailable [phone] Christina Rodriguez Unavailable [phone] Cedric King MD Unavailable [phone] Enoch Jorge MD Unavailable [phone] Laverne Lagos MD Unavailable [phone] Encounter Details Date Type Department Care Team (Late st Contact Info) Description 09/04/2024 Procedure Pass [facility] PERIOPERATIVE DEPT 55 [place] [id number] Social History Tobacco Use Types Packs/Day Years [...] Description 09/23/2025 12:00 PM EST Blood Draw [facility] Center for Hematology [address] [place] [address], [facility] Floor, [address] [place] [address] Tristen Hamilton MD, DPHIL [address] [place] [address] [email or web address] 09/23/2025 1:00 PM EST Office Visit [facility] Center for Hematology [address] [place] [address], [facility] Floor, [address] [place] [address] Tristen Hamilton MD, DPMSL [address] [place] [address] JOSE@[email or web address] nazario documented as of this encounter Visit Diagnoses Not on filedocumented in this encounter Additional Health Concerns Infection Onset Date Last Indicated Resolved Time MRSA Comment:Resolved from MRSA Infection Resolution Note 09/11/2022 09/09/2022 09/12/2024 10: 04 AM EST CoV-Risk Comment:Per note documentation 11/07/2024 11/07/2024 2:13 PM EDT documented as of this encounter Care Teams Petroleum Refinery Worker Relationship Specialty Start Date End Date Osmel Zambrano PA-C PCP - General 02/22/22 Paddy Maya MD [address] [place] [address] 440 [place] [address] PAULINO@[email or web address] Vascular Surgery 08/03/22 Christina Rodriguez MBBS [address] [place] [address] 652 [place] [address] CHAY@[facility] Thoracic Surgery 08/03/22 Cedric King MD [address] [place] [address] Dr Payne [address] [place] [address] Doll Wigs Hackler Cardiology 08/03/22 Enoch Jorge MD 100 [facility] 200 [place] [address] [email or web address] Nephrology 08/03/22 Laverne Lagos MD [address] [place] [address] FRED@[email or web address] Vascular Surgery 08/16/22 documented as of this encounter Additional Source Comments The information contained in this document represents components of the legal health record. It is not the complete legal health record.[facility]
--- OUTSIDE RECORDS SUMMARY | 2025-07-29 13:17 | XMS_ITS | Clinical Summary ---
Author Organization [facility] [place] [employer] Address [address] [facility] [place] [address] Phone Care Team Providers Care Asphalt Distributor Operator Name Role Phone Osmel Zambrano Primary Care Provider Allergies Active Allergy Reactions [...] day after dinner. 90 tablet 3 5 08/20/19 26 Active tamsulosin (FLOMAX) 0.4 mg 24 hr [...] times a day. 5 Active polyethylene glycol (Golytely) 236-22.74-6.74 -5.86 gram [...] amLODIPine (NORVASC) 10 mg tablet 5 Active polyethylene glycol (MIRALAX) 17 gram packet Take 17 g by mouth 2 (two) times a day. 3060 g 5 07/07/20 25 Active Problems Problem Noted Date Diagnosed Date Hypertension 08/13/2024 Assessment & Plan (02/11/2025 3:40 PM EDT): Blood pressure is well-controlled with a reading today 130/64. Continue with medical therapies as prescribed. Aortic aneurysm 01/02/2023 Coronary artery disease 09/17/2021 Overview (10/17/2024): [...] which is going to be stented at [facility] later this month. 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 Schwartz. Pt. Had flank pain and proceeded to [facility] where CAT showed Type A aortic dissection involving ascending aorta . Post-op weakness in bilateral lower extremities suspected ischemic cord injury. Resolved Problems Problem Noted Date Diagnosed Date Resolved Date CHF (congestive heart failure) 10/15/2024 10/17/2024 Tachycardia 01/03/2023 10/17/2024 Overview (08/13/2024): Last Assessment & Plan: Patient's EKG today showing sinus tachycardia with a heart rate of 111 bpm. This is likely related to him missing his afternoon dose of labetalol. He recently had labs completed with his food science technician. Patient is also known to have anemia. Defer to hematology whom he will be seeing in the coming weeks. Encounters Date Type Department Care Team Description 06/22/2025 Results Follow-Up Gastroenterology - [place] [address] [place] [address] Mukesh Lizama MD 05/07/2025 3:48 PM EDT Anesthesia Event [facility] Endoscopy [address] [place] [phone] Leland Estrada MD Spencer, Mark A, MD 05/07/2025 2:40 PM EDT - 05/07/2025 11:59 PM EDT Hospital Encounter [facility] Endoscopy [address] [place] [phone] Mukesh Lizama MD Steele, Matthew G, CRNA Chang, Daniel J, MD Esophageal dysphagia; Change in bowel habits Discharge Disposition: Home or Self Care 04/29/2025 Telephone Gastroenterology - [address] [facility] [facility] [address] [facility] [address] [place] [address] Kerri Luis MA from Last 3 Months Immunizations Immunization Administration Dates Next Due Moderna SARS-CoV-2 COVID-19, mRNA, LNP-S, preservative free 07/16/2021,12/21/2020,11/21/2020 Surgical History Surgery Date Site/Laterality Comments THORACOABDOMINAL AORTIC ANEURYSM REPAIR COLONOSCOPY Medical History Medical History Date Comments Thoracic spinal cord injury ([facility]/HCC V24, CMS/HCC V28) DX:Thoracic spinal cord inju [...] Orientation Straight 05/07/2025 2: 28 PM EDT Last Filed Vital Signs Vital Sign Reading [...] Description 08/19/2025 9:20 AM EST Office Visit [facility] [address] [place] [address] Dr Nunez [address] [place] [address] Cedric King MD [address] [place] [address] Dr Payne [address] [place] [phone] Health Maintenance Due Date Last Done Comments RSV Immunization Adult Patients (1 - Risk 50-74 years 1-dose series) 2009 Hepatitis C Screening 07/23/2022 Medicare Annual Wellness Visit 07/23/2022 Social Influencers of Health Screening 07/23/2022 Depression Screening 08/14/2024 COVID-19 Vaccine ( season) 2025 07/16/2021, 12/21/2020, 11/21/2020 Influenza Vaccine (#1) 2025 DTaP,Tdap,and Td Vaccines (2 - Td or Tdap) 09/11/2025 09/11/2015 Falls Risk Assessment 05/07/2026 05/07/2025 Hypertension/CHF/CAD Annual BMP Blood Test 06/18/2026 06/18/2025, 04/16/2025, 04/15/2025, Additional history exists Cholesterol Screening (Lipid Panel) 04/15/2030 04/15/2025, 09/18/2024, [...] Maintenance Results * COLONOSCOPY Anesthesia - MAC; [facility] ENDOSCOPY (05/07/2025 4:17 PM EDT) Anatomical Region Laterality Modality Endoscopy 05/07/2025 3:52 PM EDT Impressions 05/07/2025 4:26 PM EDT - Internal hemorrhoids. - The examination was otherwise normal. - No specimens collected. Recommendation: - Discharge patient to home. - Repeat colonoscopy in 10 years for screening purposes. Narrative 05/07/2025 4:26 PM EDT [facility] GI Patient Name: Rodrigo Morales Procedure [...] verified by the physician, the nurse, the director of claims and the heat treat technician in the pre-procedure area in the [...] without abnormality. Procedure Code(s): --- Professional --- 14414, Colonoscopy, flexible; diagnostic, including collection of specimen(s) by brushing or washing, when performed (separate procedure) Diagnosis Code(s): --- Professional --- R19.4, Change in bowel habit CPT copyright 2020 [employer]. All rights reserved. The codes documented in this report are preliminary and upon fern cutter review may be revised to meet current compliance requirements. Mukesh Lizama MD 05/07/2025 4:25:51 PM This report has been signed electronically.Mukesh Lizama MD Number of Addenda: 0 Note Initiated On: 05/07/2025 3:52 PM Scope Withdrawal Time: 0 hours 6 minutes 56 seconds Scope In: 3:57:52 PM Scope Out: 4:08:12 PM Endoscopy Department at [facility] - [address] [place] [phone] Procedure Note Mukesh Lizama MD - 05/07/2025 [facility] Patient Name: Rodrigo Morales Procedure [...] the physician, the nurse, theanesthetist and the heat treat technician in the pre-procedure area in the [...] without abnormality. Procedure Code(s): --- Professional --- 67720, Colonoscopy, flexible; diagnostic, including collection of specimen(s) by brushing or washing,when performed (separate procedure) Diagnosis Code(s): --- Professional --- R19.4, Change in bowel habit CPT copyright 2020 [employer]. All rights reserved. The codes documented in this report are preliminary and upon fern cutter reviewmay be revised to meet current compliance requirements. Mukesh Lizama MD 05/07/2025 4:25:51 PM This report has been signed electronically.Mukesh Lizama MD Number of Addenda: 0 Note Initiated On: 05/07/2025 3:52 PM Scope Withdrawal Time: 0 hours 6 minutes 56 seconds Scope In: 3:57:52 PM Scope Out: 4:08:12 PM Endoscopy Department at [facility] - [address] [place] [phone] IMPRESSION: - Internal hemorrhoids. - The examination was otherwise normal. - No specimens collected. Recommendation: - Discharge patient to home. - Repeat colonoscopy in 10 years for screening purposes. Mukesh Lizama MD GI~PROCEDURE ORDERABLES Fin al Result * EGD Anesthesia - MAC; [facility] ENDOSCOPY (05/07/2025 4:17 PM EDT) Anatomical Region Laterality Modality Endoscopy 05/07/2025 3:52 PM EDT Impressions 05/07/2025 4:23 PM EDT - Normal examined duodenum. - Normal stomach. - Z-line irregular, 39 cm from the incisors. Biopsied. Recommendation: - Discharge patient to home. - Await pathology results. Narrative 05/07/2025 4:23 PM EDT [facility] Patient Name: Rodrigo Morales Procedure [...] verified by the physician, the nurse, the director of claims and the heat treat technician in the pre-procedure area in the [...] the esophagus. Procedure Code(s): --- Professional --- 50121, Esophagogastroduodenoscopy, flexible, transoral; with biopsy, single or multiple Diagnosis Code(s): --- Professional --- R13.10, Dysphagia, unspecified CPT copyright 2020 [employer]. All rights reserved. The codes documented in this report are preliminary and upon fern cutter review may be revised to meet current compliance requirements. Mukesh Lizama MD 05/07/2025 4:23:43 PM This report has been signed electronically.Mukesh Lizama MD Number of Addenda: 0 Note Initiated On: 05/07/2025 3:52 PM Scope In: Scope Out: Endoscopy Department at [facility] - [address] [place] [phone] Procedure Note Mukesh Lizama MD - 05/07/2025 [facility] Patient Name: Rodrigo Morales Procedure [...] the physician, the nurse, theanesthetist and the heat treat technician in the pre-procedure area in the [...] the esophagus. Procedure Code(s): --- Professional --- 01662, Esophagogastroduodenoscopy, flexible, transoral; with biopsy, single or multiple Diagnosis Code(s): --- Professional --- R13.10, Dysphagia, unspecified CPT copyright 2020 [employer]. All rights reserved. The codes documented in this report are preliminary and upon fern cutter reviewmay be revised to meet current compliance requirements. Mukesh Lizama MD 05/07/2025 4:23:43 PM This report has been signed electronically.Mukesh Lizama MD Number of Addenda: 0 Note Initiated On: 05/07/2025 3:52 PM Scope In: Scope Out: Endoscopy Department at [facility] - [address] [place] [phone] IMPRESSION: - Normal examined duodenum. - Normal stomach. - Z-line irregular, 39 cm from the incisors.Biopsied. Recommendation: - Discharge patient to home. - Await pathology results. Mukesh Lizama MD GI~PROCEDURE ORDERABLES Fin al Result * Tissue exam (05/07/2025 4:12 PM EDT) Final Diagnosis Gastroesophageal junction, biopsy: - Esophageal squamous mucosa without diagnostic histopathologic change; no intraepithelial eosinophils are identified. - Gastric cardiac/fundic type mucosa with scant chronic inflammation and mild edema. - No intestinal metaplasia and no dysplasia identified. 05/09/2025 11:29 AM EDT [facility] at 1129 EDT Gross Description A. Esophagus, G-E junction biopsy: Labeled esophagus, GE junction . Received in formalin are four irregular gauthier-white mucosal tissue fragments, ranging from less than 0.1 cm to 0.5 cm in greatest dimension, which are wrapped in paper and submitted in toto in one cassette, four pieces, multiple levels on one slide.ANA 05/09/2025 11:29 AM T [facility] Disclaimer Unless otherwise specified, all tissue is 10% NB formalin fixed and paraffin embedded. 05/09/2025 11:29 AM T [facility] Tissue Esophageal structure / Unknown 05/07/2025 4:12 PM EDT 05/08/2025 6:51 AM EDT Mukesh Lizama MD LAB PATHOLOGY ORDERABLES Fi nal Result [facility] ([facility]) [facility] [address] [place] [address], [place] [phone] * Lipid panel (12/13/2023) LDL/HDL Ratio 0 Comment:No Interpretation , Abstracted Triglycerides 0 mg/dL Comment:No Interpretation , Abstracted Cholesterol 0 mg/dL Comment:No Interpretation , Abstracted HDL 0 mg/dL Comment:No Interpretation , Abstracted LDL Cholesterol 0 mg/dL Comment:No Interpretation , Abstracted Blood Venous blood specimen / Unknown us Historical Provider LAB BLOOD ORDERABLES Shantel l Result from Last 3 Months or Most Recently Relevant to Health Maintenance Insurance [facility] MEDICARE Member Subscriber Plan / Payer (Ef fective 2019-Present) Name:RODRIGO MORALES Relation to Subscriber:Self Name:Rodrigo Morales Payer ID:[id number] Group ID:[id number] Type:Not on file Address: [address] [facility] [place] [address] Care Teams Asphalt Distributor Operator Relationship Specialty Start Date End Date Osmel Zambrano PA [address] [place] [address] PCP - General 09/17/21
--- OUTSIDE RECORDS SUMMARY | 2025-07-29 13:17 | XMS_ITS | Encounter Summary ---
Author Organization [employer] Address [address] [place] [address] Care Team Providers Care Naval Police Coxswain Name Role Phone Osmel Zambrano Primary Care Provider [phone] Encounter Details Date Type Department Care Team ([facility] st Contact Info) Description 06/22/2025 Results Follow-Up Gastroenterology - [place] [address] [facility] 175 [facility] [address] [place] [phone] Mukesh Lizama MD [address] [facility] [address] [place] [address] Social History Tobacco Use Types Packs/Day Years [...] Orientation Straight 05/07/2025 2: 28 PM EDT documented as of this encounter Progress Notes * Mukesh Lizama MD - 06/22/2025 6:55 PM EST The biopsies of your esophagus were within normal limits. I would like to personally thank you for allowing us to take care of you. Please don't hesitate to call us for any questions or concerns. Regards, H. Xiang Muslu, MD Board Certified Gastroenterology and Internal Medicine Transplant Hepatology [facility] documented in this encounter Plan of Treatment Upcoming Encounters Date Type Department Care Team (Late st Contact Info) Description 08/19/2025 9:20 AM EST Office Visit [facility] - [facility] [address] [place] [address] Dr Nunez [address] [place] [address] Cedric King MD [address] [place] [address] Dr Payne [address] [place] [address] documented as of this encounter Visit Diagnoses Not on filedocumented in this encounter Care Teams [employer] Coxswain Relationship Specialty Start Date End Date Osmel Zambrano PA [address] [place] [address] PCP - General 09/17/21 documented as of this encounter
--- OUTSIDE RECORDS SUMMARY | 2025-07-29 13:17 | XMS_ITS | Encounter Summary ---
Author Organization [facility] Address [address] [employer] [facility] [address] [place] [address] Phone Care Team Providers Care Forwarder Operator Name Role Phone Osmel Zambrano PA-C Primary Care Provider Paddy Maya MD Unavailable [phone] Christina Rodriguez Unavailable [phone] Cedric King MD Unavailable [phone] Enoch Jorge MD Unavailable [phone] Laverne Lagos MD Unavailable [phone] Encounter Details Date Type Department Care Team (Late st Contact Info) Description 01/01/2024 Procedure Pass [facility] [place] [address] [facility], 6th [place] [address] Social History Tobacco Use Types Packs/Day Years [...] 4:00 PM EDT Oralia Porras RN * [place] Suicide Severity Rating Scale (Screener/Recent Self-Report) Question [...] Description 09/23/2025 12:00 PM EST Blood Draw [facility] [address] [place] [address], 7th Floor, [address] [place] [id number] Tristen Hamilton MD, DPHIL [address] [place], [place] [address] [place] [address] [email or web address] 09/23/2025 1:00 PM EST Office Visit [facility] Center for Hematology [address] [facility], 7th Floor, [address] [place] [address] Tristen Hamilton MD, DPHIL [address] [place] [address] [email or web address] du documented as of this encounter Visit Diagnoses Not on filedocumented in this encounter Additional Health Concerns Infection Onset Date Last Indicated Resolved Time MRSA Comment:Resolved from MRSA Infection Resolution Note 09/11/2022 09/09/2022 09/12/2024 10: 04 AM EST CoV-Risk Comment:Per note documentation 11/07/2024 11/07/2024 2:13 PM EDT documented as of this encounter Care Teams Forwarder Operator Relationship Specialty Start Date End Date Osmel Zambrano PA-C PCP - General 02/22/22 Paddy Maya MD [address] [facility] [address] [place] [address] [email or web address] Vascular Surgery 08/03/22 Christina Rodriguez MBBS [address] [place] [address] [address] [place] [address] [email or web address] Thoracic Surgery 08/03/22 Cedric King MD [address] [place] [address] Dr [address] [place] [address] Sole Skiver Cardiology 08/03/22 Enoch Jorge MD [address] [place] [address] [email or web address] 08/03/22 Laverne Lagos MD [address] [place] [address] [email or web address] Vascular Surgery 08/16/22 documented as of this encounter Additional Source Comments The information contained in this document represents components of the legal health record. It is not the complete legal health record.[facility]
--- OUTSIDE RECORDS SUMMARY | 2025-07-29 13:17 | XMS_ITS | Encounter Summary ---
Author Organization [facility] Address [address] [place] [address] Phone Care Team Providers Care Edging Machine Setter Name Role Phone Osmel Zambrano PA-C Primary Care Provider Paddy Maya MD Unavailable [phone] Christina Rodriguez Unavailable [phone] Cedric King MD Unavailable [phone] Enoch Jorge MD Unavailable [phone] Laverne Lagos MD Unavailable [phone] Reason for Visit * Reason Comments Reconsent for research study Encounter Details Date Type Department Care Team (Late st Contact Info) Description 03/29/2024 Documentation [facility] V[facility] Surgery [address] [place] [address], 4th Floor, [address] [place] [address] Ivan Roach, RN [address] [place] [address] [email or web address] Reconsent for research study Social History Tobacco [...] Description 09/23/2025 12:00 PM EST Blood Draw [facility] Center for Hematology [address] [place] [address], main campus medical center Floor, [address] [place] [address] Tristen Hamilton MD, DPHIL [address] [place] [address] [email or web address] 09/23/2025 1:00 PM EST Office Visit [facility] [address] [place] [address], 7th Floor, [address] [place] [address] Tristen Hamilton MD, DPHIL [address] [place] [address] [email or web address] du documented as of this encounter Visit Diagnoses Not on filedocumented in this encounter Additional Health Concerns Infection Onset Date Last Indicated Resolved Time MRSA Comment:Resolved from MRSA Infection Resolution Note 09/11/2022 09/09/2022 09/12/2024 10: 04 AM EST CoV-Risk Comment:Per note documentation 11/07/2024 11/07/2024 2:13 PM EDT documented as of this encounter Care Teams Edging Machine Setter Relationship Specialty Start Date End Date Osmel Zambrano PA-C PCP - General 02/22/22 Paddy Maya MD [address] [place] [address] [address] [place] [address] [email or web address] Vascular Surgery 08/03/22 Christina Rodriguez MBBS [address] [place] [address] [address] [place] [address] [email or web address] Thoracic Surgery 08/03/22 Cedric King MD [address] [place] [address] Dr [address] [place] [address] Superintendent Pressure Cardiology 08/03/22 Enoch Jorge MD 100 [facility] [address] [place] [address] [email or web address] 08/03/22 Laverne Lagos MD [address] [place] [address] [address] [place] [address] [email or web address] Vascular Surgery 08/16/22 documented as of this encounter Additional Source Comments The information contained in this document represents components of the legal health record. It is not the complete legal health record.[facility]
--- OUTSIDE RECORDS SUMMARY | 2025-07-29 13:17 | XMS_ITS | Encounter Summary ---
Author Organization [facility] Address [address] [employer] [facility] [address] [place] [address] Phone Care Team Providers Care Grain Unloader Machine Name Role Phone Unknown, Unknown Primary Care Provider Osmel Rojas PA-C Primary Care Provider [phone] Paddy Maya MD Unavailable [phone] Christina Rodriguez Unavailable [phone] Cedric King MD Unavailable [phone] nEoch Jorge MD Unavailable [phone] Laverne Lagos MD Unavailable [phone] Encounter Details Date Type Department Care Team (Late st Contact Info) Description 02/15/2022 Procedure Pass [facility] Cardiac US [address] [place] [address] Social History Tobacco Use Types Packs/Day Years [...] PM EDT Maria L Johnson, RN * [place] Suicide Severity Rating Scale (Screener/Recent Self-Report) Question [...] Description 09/23/2025 12:00 PM EST Blood Draw [facility] Center for Hematology [address] [place] [address], 7th Floor, [address] [place] [address] Tristen Hamilton MD, [address] [address] [email or web address] 09/23/2025 1:00 PM EST Office Visit [facility] Center for Hematology [address] [place] [address], 7th Floor, [address] [place] [address] Tristen Hamilton MD, DPMNL [address] [place] [address] [email or web address] documented as of this encounter Visit Diagnoses Not on filedocumented in this encounter Additional Health Concerns Infection Onset Date Last Indicated Resolved Time MRSA Comment:Resolved from MRSA Infection Resolution Note 09/11/2022 09/09/2022 09/12/2024 10: 04 AM EST CoV-Risk Comment:Per note documentation 11/07/2024 11/07/2024 2:13 PM EDT documented as of this encounter Care Teams Grain Unloader Machine Relationship Specialty Start Date End Date Unknown, Unknown, MD PCP - General 12/20/21 02/21/22 Osmel Zambrano PA-C PCP - General 02/22/22 Paddy Maya MD 55 [facility] [address] [place] [address] [email or web address] Vascular Surgery 08/03/22 Christina Rodriguez MBBS [address] [place] [address] [address] [place] [address] [email or web address] Thoracic Surgery 08/03/22 Cedric King MD [address] [place] [address] [place] [address] Cook Fry Cardiology 08/03/22 Enoch Jorge MD 100 [facility] [address] [place] [address] [email or web address] 08/03/22 Laverne Lagos MD [address] [place] [address] [address] [place] [address] [email or web address] Vascular Surgery 08/16/22 documented as of this encounter Additional Source Comments The information contained in this document represents components of the legal health record. It is not the complete legal health record.[facility]
--- OUTSIDE RECORDS SUMMARY | 2025-07-29 13:17 | XMS_ITS | Encounter Summary ---
Author Organization [facility] Address [address] [place] [address] Phone Care Team Providers Care Captain Fishing Vessel Name Role Phone Unknown, Unknown Primary Care Provider Osmel Rojas PA-C Primary Care Provider Paddy Maya MD Unavailable +[phone] Christina Rodriguez Unavailable [phone] Cedric King MD Unavailable [phone] Enoch Jorge MD Unavailable [phone] Laverne Lagos MD Unavailable +[phone] Encounter Details Date Type Department Care Team (Late st Contact Info) Description 02/16/2022 Procedure Pass [facility] [place] [place], [address] [facility], 2nd Floor, [address] [place] [address] Social History Tobacco Use Types Packs/Day Years [...] Description 09/23/2025 12:00 PM EST Blood Draw [facility] [place] [place] [facility] [address] [facility], 7th Floor, [address] [place] [address] Tristen Hamilton MD, DPHIL [address] [place] [address] [email or web address] 09/23/2025 1:00 PM EST Office Visit [facility] [place] [place] [facility] [address] [facility], 7th Floor, [address] [place], [place] [phone] Tristen Hamilton MD, DPHIL [address] [address] JOSE@[email or web address] du documented as of this encounter Visit Diagnoses Not on filedocumented in this encounter Additional Health Concerns Infection Onset Date Last Indicated Resolved Time MRSA Comment:Resolved from MRSA Infection Resolution Note 09/11/2022 09/09/2022 09/12/2024 10: 04 AM EST CoV-Risk Comment:Per note documentation 11/07/2024 11/07/2024 2:13 PM EDT documented as of this encounter Care Teams Captain Fishing Vessel Relationship Specialty Start Date End Date Unknown, Unknown, PCP - General 12/20/21 02/21/22 Osmel Zambrano PA-C PCP - General 02/22/22 Paddy Maya MD [address] [place] [address] 440 [place] [address] PAULINO@[email or web address] Vascular Surgery 08/03/22 Christina Rodriguez MBBS [address] [place] [address] 652 [place] [address] CHAY@[email or web address] Thoracic Surgery 08/03/22 Cedric Kign MD [address] [place] [address] [place] [address] Set Up Person Cardiology 08/03/22 Enoch Jorge MD [address] [place] [address] [email or web address] Nephrology 08/03/22 Laverne Lagos MD [address] [place] [address] FRED@[email or web address] Vascular Surgery 08/16/22 documented as of this encounter Additional Source Comments The information contained in this document represents components of the legal health record. It is not the complete legal health record.[facility]
--- OUTSIDE RECORDS SUMMARY | 2025-07-29 13:17 | XMS_ITS | Encounter Summary ---
Author Organization [facility] Address [address] [place] [address] Phone Care Team Providers Care Manager Party Name Role Phone Unknown, Unknown Primary Care Provider Osmel Rojas PA-C Primary Care Provider Paddy Maya MD Unavailable [phone] Christina Rodriguez Unavailable [phone] Cedric King MD Unavailable [phone] Enoch Jorge MD Unavailable [phone] Laverne Lagos MD Unavailable [phone] Encounter Details Date Type Department Care Team (Late st Contact Info) Description 02/16/2022 Procedure Pass [facility], Abad 2 [address] [facility], 2nd Floor, [address] [place] [address] Social History Tobacco Use Types Packs/Day Years [...] Description 09/23/2025 12:00 PM EST Blood Draw [facility] 32 [facility], 7th Floor, [address] [place] [address] Tristen Hamilton MD, DPHIL [phone] [place] [address] JOSE@[email or web address] 09/23/2025 1:00 PM EST Office Visit [facility] 32 [facility], 7th Floor, [address] [place], [place] [phone] Tristen Hamilton MD, DPHIL [address] [address] JOSE@[email or web address] du documented as of this encounter Visit Diagnoses Not on filedocumented in this encounter Additional Health Concerns Infection Onset Date Last Indicated Resolved Time MRSA Comment:Resolved from MRSA Infection Resolution Note 09/11/2022 09/09/2022 09/12/2024 10: 04 AM EST CoV-Risk Comment:Per note documentation 11/07/2024 11/07/2024 2:13 PM EDT documented as of this encounter Care Teams Manager Party Relationship Specialty Start Date End Date Unknown, Unknown, PCP - General 12/20/21 02/21/22 Osmel Zambrano PA-C PCP - General 02/22/22 Paddy Maya MD [address] [place] [address] [address] [place] [address] PAULINO@[email or web address] Vascular Surgery 08/03/22 Christina Rodriguez MBBS [address] [place] [address] 652 [place] [address] CHAY@[email or web address] Thoracic Surgery 08/03/22 Cedric King MD [address] [place] [address] [place] [address] Lithographic Stripper Cardiology 08/03/22 Enoch Jorge MD [address] [place] [address] [email or web address] Nephrology 08/03/22 Laverne Lagos MD [address] [place] [address] FRED@[email or web address] Vascular Surgery 08/16/22 documented as of this encounter Additional Source Comments The information contained in this document represents components of the legal health record. It is not the complete legal health record.[facility]
--- OUTSIDE RECORDS SUMMARY | 2025-07-29 13:17 | XMS_ITS | Encounter Summary ---
Author Organization [facility] Address [address] [place] [address] Phone Care Team Providers Care Polishing Pad Mounter Name Role Phone Osmel Zambrano PA-C Primary Care Provider Paddy Maya MD Unavailable [phone] Christina Rodriguez Unavailable [phone] Cedric King MD Unavailable [phone] Enoch Jorge MD Unavailable [phone] Laverne Lagos MD Unavailable [phone] Encounter Details Date Type Department Care Team (Late st Contact Info) Description 01/02/2024 Procedure Pass [facility], Abad 2 55 [facility], 2nd Floor, [address] [place] [address] Social History Tobacco Use Types Packs/Day Years [...] 4:00 PM EDT Oralia Porras RN * [place] Suicide Severity Rating Scale (Screener/Recent Self-Report) Question [...] Description 09/23/2025 12:00 PM EST Blood Draw [facility] Center for Hematology [address] [place] [address], 7th Floor, [address] [place] [address] Tristen Hamilton MD, DPHIL [address] [place], [place] [address] [place] [address] JOSE@[email or web address] nazario 09/23/2025 1:00 PM EST Office Visit [facility] for Hematology 32 [facility], 7th Floor, [address] [place] [address] Tristen Hamilton MD, DPHIL [address] [place] [address] JOSE@[email or web address]. du documented as of this encounter Visit Diagnoses Not on filedocumented in this encounter Additional Health Concerns Infection Onset Date Last Indicated Resolved Time MRSA Comment:Resolved from MRSA Infection Resolution Note 09/11/2022 09/09/2022 09/12/2024 10: 04 AM EST CoV-Risk Comment:Per note documentation 11/07/2024 11/07/2024 2:13 PM EDT documented as of this encounter Care Teams Polishing Pad Mounter Relationship Specialty Start Date End Date Osmel Zambrano PA-C PCP - General 02/22/22 Paddy Maya MD 55 [facility] 440 [place] [address] PAULINO@[email or web address] Vascular Surgery 08/03/22 Christina Rodriguez MBBS 55 [facility] 652 [place] [address] CHAY@[facility] Thoracic Surgery 08/03/22 Cedric King MD [address] [place] [address] Dr [address] [place] [address] Thread Cutter Tender Cardiology 08/03/22 Enoch Jorge MD [address] [place] [address] [email or web address] Nephrology 08/03/22 Laverne Lagos MD [address] [place] [address] FRED@[email or web address] Vascular Surgery 08/16/22 documented as of this encounter Additional Source Comments The information contained in this document represents components of the legal health record. It is not the complete legal health record.[facility]
--- OUTSIDE RECORDS SUMMARY | 2025-07-29 13:17 | XMS_ITS | Encounter Summary ---
Author Organization [facility] Address [address] [place] [address] Phone Care Team Providers Care Travel Freight And Passenger Agent Name Role Phone Osmel Zambrano PA-C Primary Care Provider Paddy Maya MD Unavailable [phone] Christina Rodriguez Unavailable [phone] Cedric King MD Unavailable [phone] Enoch Jorge MD Unavailable [phone] Laverne Lagos MD Unavailable [phone] Encounter Details Date Type Department Care Team (Late st Contact Info) Description 01/03/2024 Procedure Pass [facility] [place] Cardiac US [address] [place] [address] Social History Tobacco Use Types Packs/Day Years [...] Description 09/23/2025 12:00 PM EST Blood Draw [facility] [place] [address] [place] [address], [facility] Floor, [address] [place] [address] Tristen Hamilton MD, DPHIL [address] [place] [address] JOSE@[email or web address] nazario 09/23/2025 1:00 PM EST Office Visit [facility]ology [address] [place] [address], [facility] Floor, [address] [place] [address] Tristen Hamilton MD, DPMSL [address] [place] [address] JOSE@[email or web address] nazario documented as of this encounter Visit Diagnoses Not on filedocumented in this encounter Additional Health Concerns Infection Onset Date Last Indicated Resolved Time MRSA Comment:Resolved from MRSA Infection Resolution Note 09/11/2022 09/09/2022 09/12/2024 10: 04 AM EST CoV-Risk Comment:Per note documentation 11/07/2024 11/07/2024 2:13 PM EDT documented as of this encounter Care Teams Travel Freight And Passenger Agent Relationship Specialty Start Date End Date Osmel Zambrano PA-C PCP - General 02/22/22 Paddy Maya MD 55 [facility] 440 [place] [address] PAULINO@[email or web address] Vascular Surgery 08/03/22 Christina Rodriguez MBBS [address] [place] [address] 652 [place] [address] CHAY@[email or web address] Thoracic Surgery 08/03/22 Cedric King MD [address] [place] [address] [address] [place] [address] Supervisor Inspection Department Cardiology 08/03/22 Enoch Jorge MD 100 [facility] Fina [facility] 200 [place] [address] [email or web address] Nephrology 08/03/22 Laverne Lagos MD [address] [place] [address] FRED@[email or web address] Vascular Surgery 08/16/22 documented as of this encounter Additional Source Comments The information contained in this document represents components of the legal health record. It is not the complete legal health record.[facility]
--- OUTSIDE RECORDS SUMMARY | 2025-07-29 13:18 | XMS_ITS | Encounter Summary ---
Author Organization [facility] Address [address] [facility] [address] [place] [address] Phone Care Team Providers Care Fine Patcher Name Role Phone Osmel Zambrano PA-C Primary Care Provider [phone] Paddy Maya MD Unavailable + [phone] Christina Rodriguez Unavailable [phone] Cedric King MD Unavailable [phone] Enoch Jorge MD Unavailable [phone] Laverne Lagos MD Unavailable [phone] Encounter Details Date Type Department Care Team (Latest Contact Info) Description 06/19/2025 Lab Requisition [facility] Lab Main [address] [place] [address] Dion Roque MD [address] [place] [phone] willie [email or web address] 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, 7th Floor, [address] [place] [address] Tristen Hamilton MD, [address] [address] [email or web address] nazario 09/23/2025 1:00 PM EST Office Visit [facility] Center for Hematology [address] [place] [address], 7th Floor, [address] [place] [address] Tristen Hamilton MD, DPNJL [address] [place] [address] JOSE@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 This test has not been cleared or approved by the U.S. Food and Drug Administration. 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) documented in this encounter Care Teams Fine Patcher Relationship Specialty Start Date End Date Osmel Zambrano PA-C PCP - General 02/22/22 Paddy Maya MD [address] [place] [address] 440 [place] [address] PAULINO@[email or web address] Vascular Surgery 08/03/22 Christina Rodriguez MBBS [address] [place] [address] 652 [place] [address] CHAY@[email or web address] Thoracic Surgery 08/03/22 Cedric King MD [address] [place] [address] Dr [address] [place] [address] Fisheries Manager Cardiology 08/03/22 Enoch Jorge MD [address] [facility] 200 [place] [address] [email or web address] Nephrology 08/03/22 Laverne Lagos MD [address] [place] [address] 440 [place] [address] FRED@[email or web address] Vascular Surgery 08/16/22 documented as of this encounter Additional Source Comments The information contained in this document represents components of the legal health record. It is not the complete legal health record.[facility]
--- OUTSIDE RECORDS SUMMARY | 2025-07-29 13:18 | XMS_ITS | Encounter Summary ---
Author Organization [facility] Address [address] [facility] [address] [place] [address] Phone Care Team Providers Care Spring Floor Service Worker Name Role Phone Osmel Zambrano PA-C Primary Care Provider Paddy Maya MD Unavailable [phone] Christina Rodrigeuz Unavailable [phone] Cedric King MD Unavailable [phone] Enoch Jorge MD Unavailable [phone] Laverne Lagos MD Unavailable [phone] Encounter Details Date Type Department Care Team (Late st Contact Info) Description 10/30/2024 Procedure Pass [facility] - Peripoerative Interventional Radiology [address] [place] [address], 4th [place] [address] Social History Tobacco Use Types Packs/Day Years [...] Description 09/23/2025 12:00 PM EST Blood Draw [facility] 32 [facility], 7th Floor, [address] [place] [address] Tristen Hamilton MD, DPHIL [address] [place] [address] [place] [address] JOSE@[email or web address]. nazario 09/23/2025 1:00 PM EST Office [facility] [address] [facility], 7th Floor, [address] [place], [place] [phone] Tristen Hamilton MD, DPHIL [address] [place], [place] JOSE@[email or web address]. du documented as of this encounter Visit Diagnoses Not on filedocumented in this encounter Additional Health Concerns Infection Onset Date Last Indicated Resolved Time CoV-Risk Comment:Per note documentation 11/07/2024 11/07/2024 2:13 PM EDT documented as of this encounter Care Teams Spring Floor Service Worker Relationship Specialty Start Date End Date Osmel Zambrano PA-C PCP - General 02/22/22 Paddy Maya MD 55 [facility] 440 [place] [address] PAULINO@[email or web address] Vascular Surgery 08/03/22 Christina Rodriguez MBBS 55 [facility] 652 [place] [address] CHAY@[email or web address] Thoracic Surgery 08/03/22 Cedric King MD [address] [place] [address] Dr [address] [place] [address] Boarding House Manager Cardiology 08/03/22 Enoch Jorge MD [address] [place] [address] [email or web address] Nephrology 08/03/22 Laverne Lagos MD [address] [place] [address] FRED@[email or web address] Vascular Surgery 08/16/22 documented as of this encounter Additional Source Comments The information contained in this document represents components of the legal health record. It is not the complete legal health record.[facility]
--- OUTSIDE RECORDS SUMMARY | 2025-07-29 13:18 | XMS_ITS | Encounter Summary ---
Author Organization [facility] Address [address] [place] [address] Phone Care Team Providers Care Centerless Grinder Set Up Operator Name Role Phone Osmel Zambrano PA-C Primary Care Provider [phone] Paddy Maya MD Unavailable [phone] Christina Rodriguez Unavailable [phone] Cedric King MD Unavailable [phone] Enoch Jorge MD Unavailable [phone] Laverne Lagos MD Unavailable [phone] Encounter Details Date Type Department Care Team (Late st Contact Info) Description 09/18/2024 Procedure Pass [facility] [place] [address] [place] [address] Social History Tobacco Use Types Packs/Day Years [...] as food, clothing, or medical care? No 09/18/2024 In the past 12 months have y ou been in a relationship with a person who hurts, threatens, or tries to control you? No 09/18/2024 Are you denied basic needs s uch as food, clothing, or medical care? No 09/18/2024 In the past 12 months have y ou been in a relationship with a person who hurts, threatens, or tries to control you? No 09/18/2024 Sex and Gender Information Value Date Recorded Sex Assigned at Not on file Legal Sex Male 10:54 AM EDT Gender Identity Not on file Sexual Orientation Not on file documented as of this encounter Functional Status * Calculated C-SSRS Risk Score (Lifetime/Recent) Answer Date of Assessment Author No Risk Indicated 09/18/2024 2:45 PM Guille Linton RN * [place] Suicide Severity Rating Scale (Screener/Recent Self-Report) Question Answer Date of Assessment Author 1. Wish to be (Past 1 Month) No 09/18/2024 2:45 PM EST Aden, Guille R guadalupe, RN 2. Non-Specific Active Suicidal Thoughts (Past 1 Month) No 09/18/2024 2:45 PM EST Guille Aden RN 6. Suicidal Behavior (Lifetime) No 09/18/2024 2:45 PM EST Guille Aden RN documented as of this encounter Plan of Treatment Upcoming Encounters Date Type Department Care Team (Late st Contact Info) Description 09/23/2025 12:00 PM EST Blood Draw [facility] for [facility] [address] [place] [address], 7th Floor, [address] [place] [address] Tristen Hamilton MD, DPHIL [address] [place] [address] [email or web address] nazario 09/23/2025 1:00 PM EST Office Visit [facility] [address] [place] [address], 7th Floor, [address] [place] [address] Tristen Hamilton MD, DPMIL [address] [place] [address] JOSE@[email or web address]. [email or web address] documented as of this encounter Visit Diagnoses Not on filedocumented in this encounter Additional Health Concerns Infection Onset Date Last Indicated Resolved Time CoV-Risk Comment:Per note documentation 11/07/2024 11/07/2024 2:13 PM EDT documented as of this encounter Care Teams Centerless Grinder Set Up Operator Relationship Specialty Start Date End Date Osmel Zambrano PA-C PCP - General 02/22/22 Paddy Maya MD [address] [place] [address] 440 [place] [address] PAULINO@[email or web address] Vascular Surgery 08/03/22 Christina Rodriguez MBBS [address] [place] [address] 652 [place] [address] CHAY@[facility] Thoracic Surgery 08/03/22 Cedric King MD [address] [place] [address] [address] [place] [address] Diabetes Solutions Specialist Cardiology 08/03/22 Enoch Jorge MD 100 [facility] F[address] [place] [address] [email or web address] Nephrology 08/03/22 Laverne Lagos MD [address] [place] [address] 440 [place] [address] FRED@[email or web address] Vascular Surgery 08/16/22 documented as of this encounter Additional Source Comments The information contained in this document represents components of the legal health record. It is not the complete legal health record.[facility]
--- OUTSIDE RECORDS SUMMARY | 2025-07-29 13:18 | XMS_ITS | Encounter Summary ---
Author Organization [facility] Address [address] [place] [address] Phone Care Team Providers Care Breaker Machine Operator Name Role Phone Osmel Zambrano PA-C Primary Care Provider Paddy Maya MD Unavailable +[phone] Christina Rodriguez Unavailable [phone] Cedric King MD Unavailable +[phone] Enoch Jorge MD Unavailable +[phone] Laverne Lagos MD Unavailable +[phone] Encounter Details Date Type Department Care Team (Late st Contact Info) Description 06/18/2025 Telephone [facility] [address] [facility], 7th Floor, [address] [place] [address] Tristen Hamilton MD, DPHIL [address] [place] [address] [place] [address] JOSE@[email or web address] Social History Tobacco Use Types Packs/Day Years [...] Description 09/23/2025 12:00 PM EST Blood Draw [facility] [address] [facility], 7th Floor, [address] [place] [address] Tristen Hamilton MD, DPMAL [address] [address] JOSE@[email or web address]. [email or web address] 09/23/2025 1:00 PM EST Office Visit [facility] Hematology [address] [place] [address], 7th Floor, [address] [place] [address] Tristen Hamilton MD, DPHIL [address] [place] [address] JOSE@[email or web address]. du documented as of this encounter Visit Diagnoses Not on filedocumented in this encounter Care Teams Breaker Machine Operator Relationship Specialty Start Date End Date Osmel Zambrano PA-C PCP - General 02/22/22 Paddy Maya MD [address] [place] [address] 440 [place] [address] PAULINO@[facility] Vascular Surgery 08/03/22 Christina Rodriguez MBBS [address] [place] [address] 652 [place] [address] CHAY@[facility] Thoracic Surgery 08/03/22 Cedric iKng MD [address] [place] [address] Dr Payne 410 [place] [address] Instructional Media Services Technician Cardiology 08/03/22 Enoch Jorge MD [address] [place] [address] [email or web address] Nephrology 08/03/22 Laverne Lagos MD [address] [place] [address] FRED@[email or web address] Vascular Surgery 08/16/22 documented as of this encounter Additional Source Comments The information contained in this document represents components of the legal health record. It is not the complete legal health record.[facility]
--- OUTSIDE RECORDS SUMMARY | 2025-07-29 13:18 | XMS_ITS | Encounter Summary ---
Author Organization [facility] Address [address] [place] [address] Phone Care Team Providers Care Cw Operator Name Role Phone Osmel Zambrano PA-C Primary Care Provider Paddy Maya MD Unavailable +[phone] Christina Rodriguez Unavailable +[phone] Cedric King MD Unavailable [phone] Enoch Jorge MD Unavailable [phone] Laverne Lagos MD Unavailable +[phone] Encounter Details Date Type Department Care Team (Late st Contact Info) Description 10/30/2024 Procedure Pass [facility], Abad 2 [address] [facility], 2nd Floor, [address] [place] [address] Social History Tobacco Use Types Packs/Day Years [...] [facility] [address] [facility], 7th Floor, [address] [place] [address] Trsiten Hamilton MD, DPHIL [address] [place] [address] [place] [address] JOSE@[email or web address]. nazario 09/23/2025 1:00 PM EST Office Visit [facility]ology [address] [facility], 7th Floor, [address] [place], [place] [phone] Tristen Hamilton MD, DPHIL [address] [place], [place] JOSE@[facility]. du documented as of this encounter Visit Diagnoses Not on filedocumented in this encounter Additional Health Concerns Infection Onset Date Last Indicated Resolved Time CoV-Risk Comment:Per note documentation 11/07/2024 11/07/2024 2:13 PM EDT documented as of this encounter Care Teams Cw Operator Relationship Specialty Start Date End Date Osmel Zambrano PA-C PCP - General 02/22/22 Paddy Maya MD 55 [facility] 440 [place] [address] PAULINO@[facility] Vascular Surgery 08/03/22 Christina Rodriguez MBBS 55 [facility] 652 [place] [address] CHAY@[facility] Thoracic Surgery 08/03/22 Cedric King MD [address] [place] [address] Dr aPyne 410 [place] [address] Calender Wind Up Tender Cardiology 08/03/22 Enoch Jorge MD [address] [place] [address] [email or web address] Nephrology 08/03/22 Laverne Lagos MD [address] [place] [address] FRED@[email or web address] Vascular Surgery 08/16/22 documented as of this encounter Additional Source Comments The information contained in this document represents components of the legal health record. It is not the complete legal health record.[facility]
--- OUTSIDE RECORDS SUMMARY | 2025-07-29 13:18 | XMS_ITS | Encounter Summary ---
Author Organization [facility] Address [address] [facility] [address] [place] [address] Phone Care Team Providers Care Die Finisher Name Role Phone Osmel Zambrano PA-C Primary Care Provider [phone] Paddy Maya MD Unavailable +[phone] Christina Rodriguez Unavailable [phone] Cedric King MD Unavailable [phone] Enoch Jorge MD Unavailable [phone] Laverne Lagos MD Unavailable [phone] Encounter Details Date Type Department Care Team (Late Contact Info) Description 09/12/2022 Procedure Pass [facility] PERIOPER[facility]IVE DEPT 55 [place] [phone] Social History Tobacco Use Types Packs/Day Years [...] Department Care Team (Late Contact Info) Description 09/23/2025 12:00 PM EST Blood Draw [facility] Center for Hematology [address] [place] [address], 7th Floor, [address] [place] [address] Tristen Hamilton MD, DPHIL [address] [place] [address] JOSE@[email or web address]. [email or web address] 09/23/2025 1:00 PM EST Office Visit [facility] Center for Hematology [address] [place] [address], 7th Floor, [address] [place], [place] [phone] Tristen Hamilton MD, DPHIL [address] [address] JOSE@[facility]. du documented as of this encounter Visit Diagnoses Not on filedocumented in this encounter Additional Health Concerns Infection Onset Date Last Indicated Resolved Time MRSA Comment:Resolved from MRSA Infection Resolution Note 09/11/2022 09/09/2022 09/12/2024 10: 04 AM EST CoV-Risk Comment:Per note documentation 11/07/2024 11/07/2024 2:13 PM EDT documented as of this encounter Care Teams Die Finisher Relationship Specialty Start Date End Date Osmel Zambrano PA-C PCP - General 02/22/22 Paddy Maya MD [address] [place] [address] 440 [place] [address] PAULINO@[email or web address] Vascular Surgery 08/03/22 Christina Rodriguez MBBS [address] [place] [address] 652 [place] [address] CHAY@[email or web address] Thoracic Surgery 08/03/22 Cedric King MD [address] [place] [address] [place] [address] Edge Trimming Machine Operator Cardiology 08/03/22 Enoch Jorge MD [address] [facility] 200 [place] [address] [email or web address] Nephrology 08/03/22 Laverne Lagos MD [address] [place] [address] FRED@[email or web address] Vascular Surgery 08/16/22 documented as of this encounter Additional Source Comments The information contained in this document represents components of the legal health record. It is not the complete legal health record.[facility]
--- OUTSIDE RECORDS SUMMARY | 2025-07-29 13:18 | XMS_ITS | Encounter Summary ---
Author Organization [facility] Address [address] [place] [address] Phone Care Team Providers Care Gender Studies Professor Name Role Phone Osmel Zambrano PA-C Primary Care Provider [phone] Paddy Maya MD Unavailable +[phone] Christina Rodriguez Unavailable [phone] Cedric King MD Unavailable [phone] Enoch Jorge MD Unavailable [phone] Laverne Lagos MD Unavailable +[phone] Encounter Details Date Type Department Care Team (Late st Contact Info) Description 10/30/2024 Procedure Pass [facility] 55 [place] [phone] Social History Tobacco Use Types Packs/Day Years [...] Description 09/23/2025 12:00 PM EST Blood Draw [facility] [address] [facility], 7th Floor, [address] [place] [address] Tristen Hamilton MD, DPHIL [address] [place], [place] [id number] [email or web address] nazario 09/23/2025 1:00 PM EST Office Visit [facility] [address] [facility], 7th Floor, [address] [place] [address] Tristen Hamilton MD, DPHIL 55 [facility]80 [place] [address] JOSE@[email or web address]. du documented as of this encounter Visit Diagnoses Not on filedocumented in this encounter Additional Health Concerns Infection Onset Date Last Indicated Resolved Time CoV-Risk Comment:Per note documentation 11/07/2024 11/07/2024 2:13 PM EDT documented as of this encounter Care Teams Gender Studies Professor Relationship Specialty Start Date End Date Osmel Zambrano PA-C PCP - General 02/22/22 Paddy Maya MD 55 [facility] 440 [place] [address] PAULINO@[email or web address] Vascular Surgery 08/03/22 Christina Rodriguez MBBS [address] [place] [address] 652 [place] [address] CHAY@[facility] Thoracic Surgery 08/03/22 Cedric King MD [address] [place] [address] Dr Payne [address] [place] [address] Critical Care Nurse Practitioner Cardiology 08/03/22 Enoch Jorge MD [address] [place] [address] [email or web address] Nephrology 08/03/22 Laverne Lagos MD [address] [place] [address] FRED@[facility] Vascular Surgery 08/16/22 documented as of this encounter Additional Source Comments The information contained in this document represents components of the legal health record. It is not the complete legal health record.[facility]
--- OUTSIDE RECORDS SUMMARY | 2025-07-29 13:18 | XMS_ITS | Encounter Summary ---
Author Organization [facility] Address [address] [place] [address] Phone Care Team Providers Care Desk Lieutenant Name Role Phone Osmel Zambrano PA-C Primary Care Provider Paddy Maya MD Unavailable [phone] Christina Rodriguez Unavailable [phone] Cedric King MD Unavailable [phone] Enoch Jorge MD Unavailable [phone] Laverne Lagos MD Unavailable +[phone] Encounter Details Date Type Department Care Team (Late st Contact Info) Description 09/04/2024 Procedure Pass [facility] Imaging - Peripoerative Interventional Radiology [address] [place] [address], 4th [place] [address] Social History Tobacco Use Types Packs/Day Years [...] Description 09/23/2025 12:00 PM EST Blood Draw [facility] Center for Hematology [address] [place] [address], [facility] Floor, [address] [place] [address] Tristen Hamilton MD, DPHIL [address] [place] [address] JOSE@[email or web address] nazario 09/23/2025 1:00 PM EST Office Visit [facility] Center for Hematology [address] [place] [address], [facility] Floor, [address] [place] [address] Tristen Hamilton MD, DPHIL [address] [place] [address] JOSE@[email or web address]. nazario documented as of this encounter Visit Diagnoses Not on filedocumented in this encounter Additional Health Concerns Infection Onset Date Last Indicated Resolved Time MRSA Comment:Resolved from MRSA Infection Resolution Note 09/11/2022 09/09/2022 09/12/2024 10: 04 AM EST CoV-Risk Comment:Per note documentation 11/07/2024 11/07/2024 2:13 PM EDT documented as of this encounter Care Teams Desk Lieutenant Relationship Specialty Start Date End Date Osmel Zambrano PA-C PCP - General 02/22/22 Paddy Maya MD [address] [place] [address] 440 [place] [address] PAULINO@[facility] Vascular Surgery 08/03/22 Christina Rodriguez MBBS [address] [place] [address] 652 [place] [address] CHAY@[facility] Thoracic Surgery 08/03/22 Cedric King MD [address] [place] [address] Dr Payne [address] [place] [phone] Records Analysis Manager Cardiology 08/03/22 Enoch Jorge MD [address] [facility] Fina [facility] 200 [place] [address] [email or web address] Nephrology 08/03/22 Laverne Lagos MD [address] [place] [address] FRED@[facility] Vascular Surgery 08/16/22 documented as of this encounter Additional Source Comments The information contained in this document represents components of the legal health record. It is not the complete legal health record.[facility]
--- OUTSIDE RECORDS SUMMARY | 2025-07-29 13:18 | XMS_ITS | Encounter Summary ---
Author Organization [facility] Address [address] [facility] [address] [place] [address] Phone Care Team Providers Care Precision Dancer Name Role Phone Osmel Zambrano PA-C Primary Care Provider [phone] Paddy Maya MD Unavailable [phone] Christina Rodriguez Unavailable +[phone] Cedric King MD Unavailable [phone] Enoch Jorge MD Unavailable [phone] Laverne Lagos MD Unavailable +[phone] Encounter Details Date Type Department Care Team (Late Contact Info) Description 09/11/2022 Procedure Pass [facility] PERIOPERATIVE DEPT 55 [place] [phone] Social History Tobacco Use Types Packs/Day Years [...] [place] [facility] [address] [place] [address], 7th Floor, [address] [place] [address] Tristen Hamilton MD, DPHIL [address] [place] [address] JOSE@[email or web address]. [email or web address] 09/23/2025 1:00 PM EST Office Visit [facility] Center for Hematology [address] [place] [address], 7th Floor, [address] [place], [place] [phone] Tristen Hamilton MD, DPHIL [address] [address] JOSE@[email or web address]. du documented as of this encounter Visit Diagnoses Not on filedocumented in this encounter Additional Health Concerns Infection Onset Date Last Indicated Resolved Time MRSA Comment:Resolved from MRSA Infection Resolution Note 09/11/2022 09/09/2022 09/12/2024 10: 04 AM EST CoV-Risk Comment:Per note documentation 11/07/2024 11/07/2024 2:13 PM EDT documented as of this encounter Care Teams Precision Dancer Relationship Specialty Start Date End Date Osmel Zambrano PA-C PCP - General 02/22/22 Paddy Maya MD [address] [place] [address] 440 [place] [address] PAULINO@[facility] Vascular Surgery 08/03/22 Christina Rodriguez MBBS [address] [place] [address] 652 [place] [address] CHAY@[facility] Thoracic Surgery 08/03/22 Cedric King MD [address] [place] [address] [place] [address] Criminal Lawyer Cardiology 08/03/22 Enoch Jorge MD [address] [facility] 200 [place] [address] josué@[email or web address] Nephrology 08/03/22 Laverne Lagos MD [address] [place] [address] FRED@[email or web address] Vascular Surgery 08/16/22 documented as of this encounter Additional Source Comments The information contained in this document represents components of the legal health record. It is not the complete legal health record.[facility]
--- OUTSIDE RECORDS SUMMARY | 2025-07-29 13:18 | XMS_ITS | Encounter Summary ---
Author Organization [facility] Address [address] [facility] [address] [place] [address] Phone Care Team Providers Care Tuyere Fitter Name Role Phone Osmel Zambrano PA-C Primary Care Provider [phone] Paddy Maya MD Unavailable [phone] Christina Rodriguez Unavailable +[phone] Cedric Kign MD Unavailable [phone] Enoch Jorge MD Unavailable [phone] Laverne Lagos MD Unavailable +[phone] Encounter Details Date Type Department Care Team (Late Contact Info) Description 09/16/2022 Procedure Pass [facility] PERIOPERATIVE DEPT 55 [place] [phone] Social History Tobacco Use Types Packs/Day Years [...] [facility] for Hemat[facility] [address] [place] [address], 7th Floor, [address] [place] [address] Tristen Hamilton MD, DPHIL [address] [place] [address] JOSE@[email or web address]. [email or web address] 09/23/2025 1:00 PM EST Office Visit [facility] Center for Hematology [address] [place] [address], 7th Floor, [address] [place] [phone] Tristen Hamilton MD, DPHIL [address] [address] JOSE@[email or web address]. du documented as of this encounter Visit Diagnoses Not on filedocumented in this encounter Additional Health Concerns Infection Onset Date Last Indicated Resolved Time MRSA Comment:Resolved from MRSA Infection Resolution Note 09/11/2022 09/09/2022 09/12/2024 10: 04 AM EST CoV-Risk Comment:Per note documentation 11/07/2024 11/07/2024 2:13 PM EDT documented as of this encounter Care Teams Tuyere Fitter Relationship Specialty Start Date End Date Osmel Zambrano PA-C PCP - General 02/22/22 Paddy Maay MD [address] [place] [address] 440 [place] [address] PAULINO@[email or web address] Vascular Surgery 08/03/22 Christina Rodriguez MBBS [address] [place] [address] 652 [place] [address] CHAY@[facility] Thoracic Surgery 08/03/22 Cedric King MD [address] [place] [address] [place] [address] Buhr Mill Operator Cardiology 08/03/22 Enoch Jorge MD [address] [facility] 200 [place] [address] josué@[email or web address] Nephrology 08/03/22 Laverne Lagos MD [address] [place] [address] FRED@[email or web address] Vascular Surgery 08/16/22 documented as of this encounter Additional Source Comments The information contained in this document represents components of the legal health record. It is not the complete legal health record.[facility]
--- OUTSIDE RECORDS SUMMARY | 2025-07-29 13:18 | XMS_ITS | Encounter Summary ---
Author Organization [facility] Address [address] [facility] [address] [place] [address] Phone Care Team Providers Care Blade Boner Name Role Phone Osmel Zambrano PA-C Primary Care Provider [phone] Paddy Maya MD Unavailable [phone] Christina Rodriguez Unavailable [phone] Cedric King MD Unavailable [phone] Enoch Jorge MD Unavailable [phone] Laverne Lagos MD Unavailable +[phone] Encounter Details Date Type Department Care Team (Late st Contact Info) Description 09/09/2022 Procedure Pass [facility] PERIOPERATIVE DEPT 55 [place] [phone] Social History Tobacco Use Types Packs/Day Years [...] 09/09/2022 9:00 PM Madonna Lewis RN * [place] Suicide Severity Rating Scale (Screener/Recent Self-Report) Question [...] Description 09/23/2025 12:00 PM EST Blood Draw [facility] Center for Hematology [address] [place] [address], 7th Floor, [address] [place] [address] Tristen Hamilton MD, [address] [address] JOSE@[email or web address] nazario 09/23/2025 1:00 PM EST Office Visit [facility] Center for Hematology [address] [place] [address], 7th Floor, [address] [place] [address] Tristen Hamilton MD, [address] [address] JOSE@[facility]. [email or web address] documented as of this encounter Visit Diagnoses Not on filedocumented in this encounter Additional Health Concerns Infection Onset Date Last Indicated Resolved Time MRSA Comment:Resolved from MRSA Infection Resolution Note 09/11/2022 09/09/2022 09/12/2024 10: 04 AM EST CoV-Risk Comment:Per note documentation 11/07/2024 11/07/2024 2:13 PM EDT documented as of this encounter Care Teams Blade Boner Relationship Specialty Start Date End Date Osmel Zambrano PA-C PCP - General 02/22/22 Paddy Maya MD 55 [facility] 440 [place] [address] PAULINO@[facility] Vascular Surgery 08/03/22 Christina Rodriguez MBBS [address] [place] [address] 652 [place] [address] CHAY@[facility] Thoracic Surgery 08/03/22 Cedric King MD [address] [place] [address] Dr Payne [address] [place] [address] Senior C Software Engineer Cardiology 08/03/22 Enoch Jorge MD [address] 200 [place] [address] [email or web address] Nephrology 08/03/22 Laverne Lagos MD [address] [place] [address] 440 [place] [address] FRED@[facility] Vascular Surgery 08/16/22 documented as of this encounter Additional Source Comments The information contained in this document represents components of the legal health record. It is not the complete legal health record.[facility]
--- OUTSIDE RECORDS SUMMARY | 2025-07-29 13:18 | XMS_ITS | Encounter Summary ---
Author Organization [facility] Address [address] [place] [address] Phone Care Team Providers Care Finance Professional Name Role Phone Osmel Zambrano PA-C Primary Care Provider [phone] Paddy Maya MD Unavailable +[phone] Christina Rodriguez Unavailable +[phone] Cedric King MD Unavailable +[phone] Enoch Jorge MD Unavailable [phone] Laverne Lagos MD Unavailable +[phone] Encounter Details Date Type Department Care Team (Late st Contact Info) Description 11/08/2024 Procedure Pass [facility] [address] [place] [phone] Social History Tobacco Use Types Packs/Day Years [...] 12:00 PM EST Blood Draw [facility] [address] [facility], 7th Floor, [address] [place] [address] Tristen Hamilton MD, DPHIL [address] [place] [address] [email or web address] nazario 09/23/2025 1:00 PM EST Office Visit [facility] [address] [facility], 7th Floor, [address] [place], [place] [phone] Tristen Hamilton MD, DPHIL [address] [place], [place] JOSE@[email or web address]. nazario documented as of this encounter Visit Diagnoses Not on filedocumented in this encounter Care Teams Finance Professional Relationship Specialty Start Date End Date Osmel Zambrano PA-C PCP - General 02/22/22 Paddy Maya MD [address] [place] [address] PAULINO@[email or web address] Vascular Surgery 08/03/22 Christina Rodriguez MBBS [address] [place] [address] 652 [place] [address] CHAY@[facility] Thoracic Surgery 08/03/22 Cedric King MD [address] [place] [address] [address] [place] [address] Counter Waitress/Waiter Cardiology 08/03/22 Enoch Jorge MD [address] [place] [address] [email or web address] Nephrology 08/03/22 Laverne Lagos MD [address] [place] [address] [email or web address]@[email or web address] Vascular Surgery 08/16/22 documented as of this encounter Additional Source Comments The information contained in this document represents components of the legal health record. It is not the complete legal health record.[facility]
--- OUTSIDE RECORDS SUMMARY | 2025-07-29 13:19 | XMS_ITS | Encounter Summary ---
Author Organization [facility] Address [address] [place] [address] Phone Care Team Providers Care Order Packer Name Role Phone Osmel Zambrano PA-C Primary Care Provider [phone] Paddy Maya MD Unavailable +[phone] Christina Rodriguez Unavailable [phone] Cedric King MD Unavailable [phone] Enoch Jorge MD Unavailable [phone] Laverne Lagos MD Unavailable +[phone] Encounter Details Date Type Department Care Team (Late st Contact Info) Description 11/10/2024 Procedure Pass [facility], Ab[address] [facility], 2nd Floor, [address] [place] [address] Social History Tobacco Use Types Packs/Day Years [...] PM EST Blood Draw [facility] for Hematology [address] [facility], 7th Floor, [address] [place], [place] [phone] Tristen Hamilton MD, DPHIL [address] [place] [address] [place] [address] JOSE@[email or web address] nazario 09/23/2025 1:00 PM EST Office Visit [facility] [address] [facility], 7th Floor, [address] [place] [address] Tristen Hamilton MD, DPHIL [address] JOSE@[email or web address] du documented as of this encounter Visit Diagnoses Not on filedocumented in this encounter Care Teams Order Packer Relationship Specialty Start Date End Date Osmel Zambrano PA-C PCP - General 02/22/22 Paddy Maya MD [address] [place] [address] PAULINO@[email or web address] Vascular Surgery 08/03/22 Christina Rodriguez MBBS [address] [place] [address] CHAY@[facility] Thoracic Surgery 08/03/22 Cedric King MD [address] [place] [address] [address] [place] [address] Filter Press Operator Cardiology 08/03/22 Enoch Jorge MD [address] [place] [address] [email or web address] Nephrology 08/03/22 Laverne Lagos MD [address] [place] [address] FRED@[email or web address] Vascular Surgery 08/16/22 documented as of this encounter Additional Source Comments The information contained in this document represents components of the legal health record. It is not the complete legal health record.[facility]
--- OUTSIDE RECORDS SUMMARY | 2025-07-29 13:19 | XMS_ITS | Encounter Summary ---
Author Organization [facility] Address [address] [facility] [address] [place] [address] Phone Care Team Providers Care Server Systems Administrator Name Role Phone Osmel Zambrano PA-C Primary Care Provider Paddy Maya MD Unavailable +[phone] Christina Rodriguez Unavailable +[phone] Cedric King MD Unavailable +[phone] Enoch Jorge MD Unavailable [phone] Laverne Lagos MD Unavailable +[phone] Encounter Details Date Type Department Care Team (Late st Contact Info) Description 03/19/2025 [facility] Pass [facility] [place] [address] [facility], 6th [place] [address] Social History Tobacco Use Types Packs/Day Years [...] Description 09/23/2025 12:00 PM EST Blood Draw [facility] 32 [facility], 7th Floor, [address] [place] [address] Tristen Hamilton MD, DPHIL [address] [email or web address] 09/23/2025 1:00 PM EST Office Visit [facility]ology 32 [facility], 7th Floor, [address] [place], [place] [phone] Tristen Hamilton MD, DPHIL [address] [place] [address] JOSE@[email or web address] du documented as of this encounter Visit Diagnoses Not on filedocumented in this encounter Care Teams Server Systems Administrator Relationship Specialty Start Date End Date Osmel Zambrano PA-C PCP - General 02/22/22 Paddy Maya MD [address] [place] [address] PAULINO@[email or web address] Vascular Surgery 08/03/22 Christina Rodriguez MBBS [address] [place] [address] 652 [place] [address] CHAY@[facility] Thoracic Surgery 08/03/22 Cedric King MD [address] [place] [address] Dr [address] [place] [address] Student Services Advisor Cardiology 08/03/22 Enoch Jorge MD [address] [place] [address] [email or web address] Nephrology 08/03/22 Laverne Lagos MD [address] [place] [address] FRED@[email or web address] Vascular Surgery 08/16/22 documented as of this encounter Additional Source Comments The information contained in this document represents components of the legal health record. It is not the complete legal health record.[facility]
--- OUTSIDE RECORDS SUMMARY | 2025-07-29 13:19 | XMS_ITS | Encounter Summary ---
Author Organization [facility] Address [address] [place] [address] Phone Care Team Providers Care Display Artist Name Role Phone Osmel Zambrano PA-C Primary Care Provider Paddy Maya MD Unavailable + [phone] Christina Rodriguez Unavailable [phone] Cedric King MD Unavailable [phone] Enoch Jorge MD Unavailable [phone] Laverne Lagos MD Unavailable [phone] Reason for Visit * Reason Comments Medication Refill Encounter Details Date Type Department Care Team (Late st Contact Info) Description 07/17/2023 Refill [facility] for [facility]ematology 32 [facility], 7th Floor, [address] [place] [address] Angela Elam, WASTE MANAGEMENT ENGINEER [address] [facility] Cancer [address] [place] [address] [email or web address] Medication Refill Social History Tobacco Use Types [...] Description 09/23/2025 12:00 PM EST Blood Draw [facility] Center for Hematology [address] [place] [address], 7th Floor, [address] [place] [address] Tristen Hamilton MD, [address] [address] [email or web address] nazario 09/23/2025 1:00 PM EST Office Visit [facility] Center for Hematology [address] [place] [address], 7th Floor, [address] [place] [address] Tristen Hamilton MD, [address] [address] JOSE@[email or web address]. du documented as of this encounter Visit Diagnoses Not on filedocumented in this encounter Additional Health Concerns Infection Onset Date Last Indicated Resolved Time MRSA Comment:Resolved from MRSA Infection Resolution Note 09/11/2022 09/09/2022 09/12/2024 10: 04 AM EST CoV-Risk Comment:Per note documentation 11/07/2024 11/07/2024 2:13 PM EDT documented as of this encounter Care Teams Display Artist Relationship Specialty Start Date End Date Osmel Zambrano PA-C PCP - General 02/22/22 Paddy Maya MD 55 [facility] 440 [place] [address] PAULINO@[email or web address] Vascular Surgery 08/03/22 Christina Rodriguez MBBS [address] [place] [address] 652 [place] [address] CHAY@[facility] Thoracic Surgery 08/03/22 Cedric King MD [address] [place] [address] [address] [place] [phone] Teacher Specialist Cardiology 08/03/22 Enoch Jorge MD [address] [place] [address] [email or web address] Nephrology 08/03/22 Laverne Lagos MD [address] [place] [address] 440 [place] [address] FRED@[email or web address] Vascular Surgery 08/16/22 documented as of this encounter Additional Source Comments The information contained in this document represents components of the legal health record. It is not the complete legal health record.[facility]
--- OUTSIDE RECORDS SUMMARY | 2025-07-29 13:19 | XMS_ITS | Encounter Summary ---
Author Organization [facility] Address [address] [employer] [address] [facility] [address] [place] [address] Phone Care Team Providers Care Senior Software Qa Engineer Name Role Phone Osmel Zambrano PA-C Primary Care Provider [phone] Paddy Maya MD Unavailable +[phone] Christina Rodriguez Unavailable +[phone] Cedric King MD Unavailable +[phone] Enoch Jroge MD Unavailable +[phone] Laverne Lagos MD Unavailable +[phone] Encounter Details Date Type Department Care Team (Late st Contact Info) Description 08/21/2024 Procedure Pass [facility] [place] 32 [facility], 6th [place] [address] Social History Tobacco Use Types Packs/Day Years [...] Description 09/23/2025 12:00 PM EST Blood Draw [facility] Center for Hematology [address] [place] [address], [facility] Floor, [address] [place] [address] Tristen Hamilton MD, DPHIL [address] [place] [address] JOSE@[email or web address] nazario 09/23/2025 1:00 PM EST Office Visit [facility] Center for Hematology [address] [place] [address], 7th Floor, [address] [place] [address] Tristen Hamilton MD, DPHIL [address] [place] [address] JOSE@[email or web address]. nazario documented as of this encounter Visit Diagnoses Not on filedocumented in this encounter Additional Health Concerns Infection Onset Date Last Indicated Resolved Time MRSA Comment:Resolved from MRSA Infection Resolution Note 09/11/2022 09/09/2022 09/12/2024 10: 04 AM EST CoV-Risk Comment:Per note documentation 11/07/2024 11/07/2024 03/27/202 5 2:13 PM EDT documented as of this encounter Care Teams Senior Software Qa Engineer Relationship Specialty Start Date End Date Osmel Zambrano PA-C PCP - General 02/22/22 Paddy Maya MD 55 [facility] 440 [place] [address] PAULINO@[email or web address] Vascular Surgery 08/03/22 Christina Rodriguez MBBS [address] [place] [address] 652 [place] [address] CHAY@[facility] Thoracic Surgery 08/03/22 Cedric King MD [address] [place] [address] [address] [place] [address] Front End Developer Javascript Html Css Cardiology 08/03/22 Enoch Jorge MD 100 [facility] Fina [facility] 200 [place] [address] [email or web address] Nephrology 08/03/22 Laverne Lagos MD [address] [place] [address] FRED@[facility] Vascular Surgery 08/16/22 documented as of this encounter Additional Source Comments The information contained in this document represents components of the legal health record. It is not the complete legal health record.[facility]
--- OUTSIDE RECORDS SUMMARY | 2025-07-29 13:19 | XMS_ITS | Encounter Summary ---
Author Organization [facility] Address [address] [place] [address] Phone Care Team Providers Care Product Advisor Name Role Phone Osmel Zambrano PA-C Primary Care Provider [phone] Paddy Maya MD Unavailable +[phone] Christina Rodriguez Unavailable +[phone] Cedric King MD Unavailable +[phone] Enoch Jorge MD Unavailable [phone] Laverne Lagos MD Unavailable [phone] Reason for Visit * Reason Comments Medication Refill Encounter Details Date Type Department Care Team (Late st Contact Info) Description 05/08/2025 Refill [facility] Vascular Surgery 55 [facility], 4th Floor, [address] [place] [address] Emily Iqbal, PILE DRIVER OPERATOR 55 [place] [address] [email or web address] Medication Refill Social History Tobacco Use Types [...] 09/23/2025 12:00 PM EST Blood Draw [facility] Center for Hematology [address] [place] [address], 7th Floor, [address] [place] [address] Tristen Hamilton MD, DPOKL [address] [place] [address] JOSE@[email or web address]. nazario 09/23/2025 1:00 PM EST Office Visit [facility] for [facility] [address] [place] [address], 7th Floor, [address] [place], [place] [phone] Tristen Hamilton MD, DPOKL [address] [place] [address] JOSE@[facility]. nazario documented as of this encounter Visit Diagnoses Diagnosis Hyperlipidemia, unspecified hyperlipidemia type documented in this encounter Care Teams Product Advisor Relationship Specialty Start Date End Date Osmel Zambrano PA-C PCP - General 02/22/22 Paddy Maya MD [address] [place] [address] 440 [place] [address] PAULINO@[email or web address] Vascular Surgery 08/03/22 Christina Rodriguez MBBS [address] [place] [address] 652 [place] [address] CHAY@[email or web address] Thoracic Surgery 08/03/22 Cedric King MD [address] [place] [address] [place] [address] Hotel Maintenance Worker Cardiology 08/03/22 Enoch Jorge MD [address] [place] [address] [email or web address] Nephrology 08/03/22 Laverne Lagos MD [address] [place] [address] FRED@[email or web address] Vascular Surgery 08/16/22 documented as of this encounter Additional Source Comments The information contained in this document represents components of the legal health record. It is not the complete legal health record.[facility]
--- OUTSIDE RECORDS SUMMARY | 2025-07-29 13:19 | XMS_ITS | Encounter Summary ---
Author Organization [facility] Address [address] [place] [address] Phone Care Team Providers Care Paraffin Machine Operator Name Role Phone Osmel Zambrano PA-C Primary Care Provider [phone] Paddy Maya MD Unavailable [phone] Christina Rodriguez Unavailable [phone] Cedric King MD Unavailable [phone] Enoch Jorge MD Unavailable [phone] Laverne Lagos MD Unavailable +[phone] Encounter Details Date Type Department Care Team (Late st Contact Info) Description 01/02/2024 Procedure Pass [facility]PT [address] [place] [phone] Social History Tobacco Use Types Packs/Day Years [...] 4:00 PM EDT Oralia Porras RN * [place] Suicide Severity Rating Scale (Screener/Recent Self-Report) Question [...] [facility] [place] [facility] for Hematology [address] [place] [address], 7th Floor, [address] [place] [address] Tristen Hamilton MD, DPHIL [address] [place] [address] JOSE@[email or web address]. nazario 09/23/2025 1:00 PM EST Office Visit [facility] Center for Hematology [address] [place] [address], 7th Floor, [address] [place] [address] Tristen Hamilton MD, DPHIL [address] [place] [address] JOSE@[email or web address]. du documented as of this encounter Visit Diagnoses Not on filedocumented in this encounter Additional Health Concerns Infection Onset Date Last Indicated Resolved Time MRSA Comment:Resolved from MRSA Infection Resolution Note 09/11/2022 09/09/2022 09/12/2024 10: 04 AM EST CoV-Risk Comment:Per note documentation 11/07/2024 11/07/2024 2:13 PM EDT documented as of this encounter Care Teams Paraffin Machine Operator Relationship Specialty Start Date End Date Osmel Zambrano PA-C PCP - General 02/22/22 Paddy Maya MD 55 [facility] 440 [place] [address] PAULINO@[email or web address] Vascular Surgery 08/03/22 Christina Rodriguez MBBS [address] [place] [address] 652 [place] [address] CHAY@[facility] Thoracic Surgery 08/03/22 Cedric King MD [address] [place] [address] [address] [place] [address] Pin Feather Machine Operator Cardiology 08/03/22 Enoch Jorge MD [address] [place] [address] [email or web address] Nephrology 08/03/22 Laverne Lagos MD [address] [place] [address] FRED@[facility] Vascular Surgery 08/16/22 documented as of this encounter Additional Source Comments The information contained in this document represents components of the legal health record. It is not the complete legal health record.[facility]
--- OUTSIDE RECORDS SUMMARY | 2025-07-29 13:19 | XMS_ITS | Encounter Summary ---
Author Organization [facility] Address [address] [place] [address] Phone Care Team Providers Care Beater And Pulper Feeder Name Role Phone Osmel Zambrano PA-C Primary Care Provider Paddy Maya MD Unavailable +[phone] Christina Rodriguez Unavailable [phone] Cedric King MD Unavailable +[phone] Enoch Jorge MD Unavailable +[phone] Laverne Lagos MD Unavailable [phone] Encounter Details Date Type Department Care Team (Late st Contact Info) Description 06/16/2025 Telephone [facility] Center for Hematology 32 [facility], 7th Floor, [address] [place] [address] Tristen Hamilton MD, DPHIL [address] [place] [address] [place] [address] JOSE@[facility] Social History Tobacco Use Types Packs/Day Years [...] 09/23/2025 12:00 PM EST Blood Draw [facility] Center for Hematology 32 [facility], 7th Floor, [address] [place] [address] Tristen Hamilton MD, DPNHL [address] [address] JOSE@[email or web address]. [email or web address] 09/23/2025 1:00 PM EST Office Visit [facility] Center for Hematology [address] [place] [address], 7th Floor, [address] [place] [address] Tristen Hamilton MD, DPHIL [address] [place] [address] JOSE@[email or web address] du documented as of this encounter Visit Diagnoses Not on filedocumented in this encounter Care Teams Beater And Pulper Feeder Relationship Specialty Start Date End Date Osmel Zambrano PA-C PCP - General 02/22/22 Paddy Maya MD [address] [place] [address] 440 [place] [address] PAULINO@[facility] Vascular Surgery 08/03/22 Christina Rodriguez MBBS [address] [place] [address] 652 [place] [address] CHAY@[facility] Thoracic Surgery 08/03/22 Cedric King MD [address] [place] [address] [address] [place] [address] Secondary School Teacher Librarian Cardiology 08/03/22 Enoch Jorge MD [address] [place] [address] [email or web address]@[email or web address] Nephrology 08/03/22 Laverne Lagos MD [address] [place] [address] FRED@[facility] Vascular Surgery 08/16/22 documented as of this encounter Additional Source Comments The information contained in this document represents components of the legal health record. It is not the complete legal health record.[facility]
--- OUTSIDE RECORDS SUMMARY | 2025-07-29 13:19 | XMS_ITS | Clinical Summary ---
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 30 tablet 2 02/23/20 22 Active gabapentin (NEURONTIN) 300 MG capsule Take 1 capsule (300 mg total) by mouth nightly at bedtime. 30 capsule 02/23/20 22 Active lidocaine 4 % Place 1-2 patches onto the skin daily. 02/23/20 22 Active acetaminophen (TYLENOL) 325 mg tablet Take 2 tablets (650 mg total) by mouth every 6 (six) hours as needed. 0 09/23/19 23 Active melatonin 5 mg Tab Take 1 tablet (5 mg total) by mouth nightly at bedtime. 02/10/20 23 Active cloNIDine HCL (CATAPRES) 0.2 MG tablet Take 1 tablet (0.2 mg total) by mouth 3 (three) times a day. 30 tablet 1 09/12/19 Active Additional Information Patient taking differently:0.2 mg OralNightly, Reported on 05/02/2025 bisacodyl (DULCOLAX) 5 mg Tab tablet Take 1 tablet (5 mg total) by mouth once as needed. 14 tablet 1 09/12/19 Active Additional Information Patient not taking.Reported on 05/02/2025 calcium carbonate 500 mg (200 mg elemental) chewable tablet Take 1 tablet (500 mg total) by mouth every 4 (four) hours as needed for heartburn. 09/23/19 Active Additional Information Patient not taking.Reported on 05/02/2025 food supplemt, lactose-reduced (,ENSURE PLUS,) 0.05 gram- 1.5 kcal/mL Liqd Take 237 mL (1 Can total) by mouth 3 (three) times a day. 62310 mL 1 11/18/19 25 Active multivitamin-gun examiner als-lutein (CENTRUM SILVER) Tab Take 1 tablet by mouth daily. 11/18/19 Active Additional Information Patient not taking.Reported on 05/02/2025 atorvastatin (LIPITOR) 40 MG tabletIndications: Hyperlipidemia, unspecified hyperlipidemia type Take 1 tablet (40 mg total) by mouth nightly at bedtime. 90 tablet 1 12/05/19 25 Active aspirin 81 mg chewable tablet Take 1 tablet (81 mg total) by mouth daily. 90 tablet 3 12/21/19 25 Active labetaloL (TRANDATE) 200 MG tabletIndications: 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 Take 1 tablet (200 mg total) by mouth daily. 90 tablet 3 12/21/19 25 Active apixaban (ELIQUIS) 2.5 mgIndications:Diss eminated intra-vascular coagulation Take 1 tablet (2.5 mg total) by mouth 2 (two) times a day. 180 tablet 3 01/30/20 25 026 Active tamsulosin (FLOMAX) 0.4 mg Cap Take 0.4 mg by mouth. 03/17/20 25 Active Active Problems Problem Noted Date Diagnosed Date AAA (abdominal aortic aneurysm) 11/06/2024 Assessment & Plan (11/09/2024 7:28 AM EDT): NEURO: #Pain Control/Sedation: - Scheduled tylenol - Narcotics PRN - Continue home gabapentin 300 mg nightly PULM: - SpO2 >91% - On RA CV: #Aortic aneurysm dilation #S/p repair asc and irasema arch replacement + CABG x1 #4v FEVAR c/b endoleak #S/p staged L carotid vertebral transposition #S/p R carotid subclavian bypass with R vertebral artery transposition #Now s/p coil embolization of innominate artery and re-stenting of L renal artery - Recently discharged 11/04 after endoleak - Off all gtts - Continue home atorvastatin 40 mg - Restart home ASA 81mg - PT consult #HTN - Hold home amlodipine - Hold home labetolol GI: - Antiemetics PRN - Diet: Regular diet #Constipation: - Aggressive bowel regimen - No valsalva with BM RENAL/: - Monitor and replete electrolytes PRN - Day out #CKD3 - Baseline Cr 1.3 - 1.5 - Avoid nephrotoxic agents - Strict I/Os - UOP 675 cc 10/28 (0.4 cc/kg/hr), 325 since midnight (looks like didn't start fluids until afternoon) ENDO: - Glu goal <180 - No insulin requirements ID: # UTI: F/t/h serratia UTI during recent hospitalization, dc'd w/ 10 days cipro. Presented with fevers in addition to his abdominal pain - Blood cx NG at 24 hrs - Urine cx in process - S/p vancomycin (11/07) - Continue flagyl, and cefepime (11/06 - ) HEME: - Hgb >7 - BID CBC - Hold home eliquis - DVT ppx: SCDs, start SQH #Chronic DIC - Diagnosed 2022, followed by hematology - CBC and fibrinogen daily Assessment & Plan (11/08/2024 9:10 AM EDT): NEURO: #Pain Control/Sedation: - Scheduled tylenol - Narcotics PRN - Continue home gabapentin 300 mg nightly PULM: - SpO2 >91% - On 2L NC CV: #Aortic aneurysm dilation #S/p repair asc and irasema arch replacement + CABG x1 #4v FEVAR c/b endoleak #S/p staged L carotid vertebral transposition #S/p R carotid subclavian bypass with R vertebral artery transposition - Recently discharged 11/04 after endoleak - Plan for OR today with vasc surg for angiogram and repair - NPO at MN - Esmolol gtt for HR goal <70 - Nicardipine gtt for SBP goal <120 - Continue home atorvastatin 40 mg - Hold home ASA 81mg #HTN - Hold home amlodipine - Hold home labetolol GI: - Antiemetics PRN - Diet: NPO except meds at MN #Constipation: - Aggressive bowel regimen - No valsalva with BM RENAL/: - Monitor and replete electrolytes PRN #CKD3 - Baseline Cr 1.3 - 1.5 - Avoid nephrotoxic agents - Strict I/Os - UOP 675 cc 10/28 (0.4 cc/kg/hr), 325 since midnight (looks like didn't start fluids until afternoon) ENDO: - Glu goal <180 - No insulin requirements ID: # UTI: F/t/h serratia UTI during recent hospitalization, dc'd w/ 10 days cipro. Presented with fevers in addition to his abdominal pain - Blood cx NG at 24 hrs - Urine cx in process - S/p vancomycin (11/07) - Continue flagyl, and cefepime (11/06 - ) HEME: - Hgb >7 - BID CBC - Hold home eliquis - DVT ppx: SCDs, start SQH #Chronic DIC - Diagnosed 2022, followed by hematology - CBC and fibrinogen daily Assessment & Plan (11/07/2024 9:28 AM EDT): NEURO: DONN # Pain Control/Sedation: - prn dilaudid iv - prn oxycodone po - tylenol ivana - continue home nightly gabapentin PULM: DONN SpO2 >91% Prn NC CV: # aortic aneurysm dilation #s/p repair asc and irasema arch replacement + CABG x1 # 4v FEVAR c/b endoleak # s/p staged L carotid vertebral transposition # s/p R carotid subclavian bypass with R vertebral artery transposition - recent discharge with endoleak repair - possible OR with vasc surg for angiogram and repair 11/07 - NPO at MN - HR <70 - SBP <120 - esmolol gtt - nicardipine gtt - lipitor 40 mg - hold ASA 81mg - Deferring arterial line for now #HTN - amlodipine hold - hold labetalol GI: # Constipation: - maximum bowel regimen - no valsalva with BM # Nutrition: - Diet: NPO except meds at MN - Zofran PRN RENAL/: #CKD - baseline Cr 1.3 - 1.5 - avoid nephrotoxic agents - strict I/Os ENDO: DONN Glu <180 - No insulin requirements ID: # UTI: - re-fevering while on ciproflaxacin - re-culture urine and blood - Vancomycin, flagyl, and cefepime (11/06 - ) HEME: - Hgb >7 - BID cbc - SCDs, No pharmacologic DVT ppx at this time #chronic DIC - in 2022, followed by heme - CBC and fibrinogen daily Thoracoabdominal aortic aneurysm 10/28/2024 Localized edema due to fluid overload 09/19/2024 CHF following non-cardiac surgery, postop 2024 Aortic aneurysm without rupture 09/03/2024 Assessment & Plan (09/08/2024 12:00 PM EST): NEURO: # Pain Control/Sedation: - Holding home Gabapentin 300mg nightly - Lidocaine patches PRN - Scheduled Tylenol PULM: - No active issues, continue to monitor, on 3L NC - possible volume overload - f/up CR today s/p diuresis - Supplemental O2 for SpO2 >92% CV: #S/p TAAA Repair 09/04 - Target MAP > 85, SBP <160 - Nicarpidine and norepinephrine gtt PRN, on nicardipine overnight - Space neuro checks and vascular checks to q4h - spinal drain --- High risk for epidural hematoma given history of DIC, small amount of blood around drain site on admission --- Spinal drain site with small amount of blood surrounding --- Spinal drain dc'd 09/07 after rounds. # CAD # Bradycardia (30's - while in-patient, pre-op) - Episode of warmth, dizziness in setting of having to void and move bowels, Cardiology note 09/04--> On telemetry monitoring could see sinus bradycardia that progressed to loss of P-waves with junctional rhythm - TTE done at bedside showed mod AR without significant or other significant valvular disease. EF 76% with normal biventricular size and function - ASA 81 mg daily restarted 09/05 per Vascular Surgery #ST Changes on ECG 1mm ST elevations in V2-4 on E4 admission ECG postop. - Repeat ECG overnight stable, troponins flat. Low suspicion for IA. - Improved on 09/06 ECG # HTN - Holding Home Amlodipine 10mg daily - Home Clonidine 0.3 mg TID - Holding Home Hydralazine 75mg - Holding home labetalol 400 mg TID, start 100 mg TID after spinal drain out - off nicardipine gtt overnight GI: # Nutrition: - Diet: Regular cardiac diet - Home omeprazole PRN - Bowel regimen, no bowel movement yet RENAL/: # CKD 3: - Baseline Cr 1.3-1.6, at baseline 09/07 - Monitor and replete electrolytes as needed - Strict I/Os, day in place - Avoid nephrotoxic agents ENDO: # DONN - CTM - No insulin requirements ID: # Periop Abx: - Periop ancef x24hr completed HEME: # Chronic DIC # H/o DVT of RUE - Followed by hematology (Dr. 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 for which he is on apixaban - Last dose Eliquis 09/01/24 - BID coags per Heme - Transfuse for Hgb >10, Plt >50 and Fibrinogen >150 - Hematology consult per Vascular Surgery, appreciate recommendations - SCDs, No pharmacologic DVT ppx at this time iso bleeding risk and spinal drain, per Vascular Surgery may be able to restart DVT ppx 09/08 ACCESS: PIV: 20g, 22g Nabil: R Radial CVL: RIJ MAC and TRIC Day: Yes NGT: No Drains: Spinal Drain at L3/L4 PROPHYLAXIS: DVT: Mechanical - Pneumoboots Chemical - none at this time iso postop bleeding risk GI: Omeprazole PRN DISPO: E4 SICU Assessment & Plan (09/07/2024 4:50 PM EST): NEURO: # Pain Control/Sedation: - Holding home Gabapentin 300mg nightly - Lidocaine patches PRN - Scheduled Tylenol PULM: - No active issues, continue to monitor, on 2L NC - Supplemental O2 for SpO2 >92% CV: #S/p TAAA Repair 09/04 - Target MAP > 85, SBP <160 - Nicarpidine and norepinephrine gtt PRN, on nicardipine overnight - Space neuro checks and vascular checks to q4h - Spinal drain per SICU protocol --- High risk for epidural hematoma given history of DIC, small amount of blood around drain site on admission --- Spinal drain site with small amount of blood surrounding --- Spinal drain capped, plan to remove 09/07 after AM rounds # CAD # Bradycardia (30's - while in-patient, pre-op) - Episode of warmth, dizziness in setting of having to void and move bowels, Cardiology note 09/04--> On telemetry monitoring could see sinus bradycardia that progressed to loss of P-waves with junctional rhythm - TTE done at bedside showed mod AR without significant or other significant valvular disease. EF 76% with normal biventricular size and function - ASA 81 mg daily restarted 09/05 per Vascular Surgery #ST Changes on ECG 1mm ST elevations in V2-4 on E4 admission ECG postop. - Repeat ECG overnight stable, troponins flat. Low suspicion for IA. - Improved on 09/06 ECG # HTN - Holding Home Amlodipine 10mg daily - Home Clonidine 0.3 mg TID - Holding Home Hydralazine 75mg - Holding home labetalol 400 mg TID, start 100 mg TID after spinal drain out - Nicardipine gtt PRN for SBP >160, will try to wean off with escalation of PO regimen but maintain MAP >85 for spinal cord protection GI: # Nutrition: - Diet: Regular cardiac diet - Home omeprazole PRN - Bowel regimen, no bowel movement yet RENAL/: # CKD 3: - Baseline Cr 1.3-1.6, at baseline 09/07 - Monitor and replete electrolytes as needed - Strict I/Os, day in place - Avoid nephrotoxic agents ENDO: # DONN - CTM - No insulin requirements ID: # Periop Abx: - Periop ancef x24hr completed HEME: # Chronic DIC # H/o DVT of RUE - Followed by hematology (Dr. 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 for which he is on apixaban - Last dose Eliquis 09/01/24 - BID coags per Heme - Transfuse for Hgb >10, Plt >50 and Fibrinogen >150 - Hematology consult per Vascular Surgery, appreciate recommendations - SCDs, No pharmacologic DVT ppx at this time iso bleeding risk and spinal drain, per Vascular Surgery may be able to restart DVT ppx 09/08 ACCESS: PIV: 20g, 22g Nabil: R Radial CVL: RIJ MAC and TRIC Day: Yes NGT: No Drains: Spinal Drain at L3/L4 PROPHYLAXIS: DVT: Mechanical - Pneumoboots Chemical - none at this time iso postop bleeding risk GI: Omeprazole PRN DISPO: E4 SICU Assessment & Plan (09/06/2024 12:06 PM EST): NEURO: # Pain Control/Sedation: - Holding home Gabapentin 300mg nightly, will consider restarting pending BÁRBARA resolution - continue lidocaine patches PRN - Dilaudid PRN for severe pain - Precedex gtt weaned off - started scheduled tylenol 650mg q6 PULM: - No active issues, continue to monitor - Supplemental O2 for SpO2 >92% CV: #S/p TAAA Repair 09/04 - Target MAP > 85, SBP <160 - Nicarpidine and norepinephrine gtt prn - Continue q1h vascular checks - Q2h neuro checks - Spinal drain per SICU protocol --- High risk for epidural hematoma given history of DIC, small amount of blood around drain site on admission --- Spinal drain site with small amount of blood surrounding - spinal drain capped, plan to dc 09/07 after AM rounds (confirm with Vascular) - clonidine 0.1 to 0.3 mg (home dose), if still hypertensive can add on labetalol. # CAD # Bradycardia (30's - while in-patient, pre-op) - Episode of warmth, dizziness in setting of having to void and move bowels, Cardiology note 09/04--> On telemetry monitoring could see sinus bradycardia that progressed to loss of P-waves with junctional rhythm - TTE done at bedside showed mod AR without significant or other significant valvular disease. EF 76% with normal biventricular size and function - ASA 81 mg daily restarted 09/05 per Vascular Surgery #ST Changes on ECG 1mm ST elevations in V2-4 on E4 admission ECG postop. - Repeat ECG overnight stable, troponins flat. Low suspicion for IA. [ ] f/up ECG this AM # HTN - Holding Home Amlodipine 10mg daily - Home Clonidine to 0.3, can consider starting labetalol pending evolution of BP during the day - Holding Home Hydralazine 75mg GI: # Nutrition: - Diet: Regular cardiac diet - Home omeprazole PRN restarted 09/05 - Bowel regimen RENAL/: # CKD 3: - Baseline Cr 1.3-1.6, bump to 1.9 yesterday with improvement to 1.7 this morning. - Monitor and replete electrolytes as needed - Strict I/Os, day in place - Avoid nephrotoxic agents ENDO: # DONN - CTM - No insulin requirements ID: # Periop Abx: - Periop ancef x24hr completed HEME: # Chronic DIC # H/o DVT of RUE - Followed by hematology (Dr. 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 for which he is on apixaban - Last dose Eliquis 09/01/24 - BID coags per heme - Transfuse for Hgb >10, Plt >50 and Fibrinogen >150 - Hematology consult per Vascular Surgery - SCDs, No pharmacologic DVT ppx at this time iso bleeding risk and spinal drain [ ] f/up pm CBC ACCESS: PIV: 20g, 22g Nabil: R Radial CVL: RIJ MAC and TRIC Day: Yes NGT: No Drains: Spinal Drain at L3/L4 PROPHYLAXIS: DVT: Mechanical - Pneumoboots Chemical - none at this time iso postop bleeding risk GI: Omeprazole PRN DISPO: E4 ICU Assessment & Plan (09/05/2024 10:12 AM EST): NEURO: # Pain Control/Sedation: - Holding home Gabapentin 300mg nightly, will consider restarting pending BÁRBARA - Scheduled tylenol, lidocaine patches PRN - Dilaudid PRN for severe pain - Precedex gtt overnight for agitation, wean as able PULM: - No active issues, continue to monitor - Supplemental O2 for SpO2 >92% CV: #S/p TAAA Repair 09/04 - Target MAP > 85, SBP <160 - Nicarpidine and norepinephrine gtt prn - Continue q1h vascular checks - Q2h neuro checks - Spinal drain per SICU protocol --- High risk for epidural hematoma given history of DIC, small amount of blood around drain site on admission --- Spinal drain site with small amount of blood surrounding # CAD # Bradycardia (30's - while in-patient, pre-op) - Episode of warmth, dizziness in setting of having to void and move bowels, Cardiology note 09/04--> On telemetry monitoring could see sinus bradycardia that progressed to loss of P-waves with junctional rhythm - TTE done at bedside showed mod AR without significant or other significant valvular disease. EF 76% with normal biventricular size and function - ASA 81 mg daily restarted 09/05 per Vascular Surgery #ST Changes on ECG 1mm ST elevations in V2-4 on E4 admission ECG postop. - Repeat ECG overnight stable, will send troponin this morning # HTN - Holding Home Amlodipine 10mg daily - Holding Home Clonidine 0.3, restart at 0.1 mg TID given risk of withdrawal as precedex gtt weaned - Holding Home Labetolol 400mg - Holding Home Hydralazine 75mg GI: # Nutrition: - Diet: Regular cardiac diet - Home omeprazole PRN restarted 09/05 - Bowel regimen RENAL/: # CKD 3: - Baseline Cr 1.3-1.6, monitor given rise to 1.8 on 09/05 - Monitor and replete electrolytes as needed - Strict I/Os, day in place - Avoid nephrotoxic agents ENDO: # DONN - CTM - No insulin requirements ID: # Periop Abx: - Periop ancef x24hr, to end 09/05 HEME: # Chronic DIC # H/o DVT of RUE - Followed by hematology (Dr. 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 for which he is on apixaban - Last dose Eliquis 09/01/24 - Labs q6h today 09/05 - Transfuse for Hgb >10, Plt >100 and Fibrinogen >100 - Hematology consult per Vascular Surgery - SCDs, No pharmacologic DVT ppx at this time iso bleeding risk and spinal drain ACCESS: PIV: 20g, 22g Nabil: R Radial CVL: RIJ MAC and TRIC Day: Yes NGT: No Drains: Spinal Drain at L3/L4 PROPHYLAXIS: DVT: Mechanical - Pneumoboots Chemical - none at this time iso postop bleeding risk GI: Omeprazole PRN DISPO: E4 ICU Thoracic aortic aneurysm without rupture 024 Dissection of thoracoabdominal aortic aneurysm ( TAAA) 02/28/2024 Infrarenal abdominal aortic aneurysm (AAA) witho ut rupture 02/28/2024 S/P endovascular aneurysm repair 02/28/2024 Thoracoabdominal aortic aneu rysm (TAAA) without rupture, unspecified part 01/02/2024 Assessment & Plan (01/08/2024 5:01 AM EDT): NEURO: #Pain/Symptom Management: - Analgesia: APAP, Oxycodone PRN, Hydromorphone PRN - Continue home Gabapentin qHS - Hold Trazodone # Spinal Drain in setting of TEVAR - Drained > 30cc/hr immediate post-op - Q2 LE neurovascular monitoring - At baseline LE neuro exam; Lifts and hold bilat LE off bed - Removed 01/04 # s/p Right Carotid to Subclavian Bypass (01/01, Demond) R Carotid to Subclavian Bypass. Vertebral artery transposed onto R external Carotid artery. Medial ATILIO drain in carotid dissection bed. Lateral HP drain in subclavian dissection bed. Postoperative course c/b delayed emergency requiring CTA H/N which was unremarkable. - CTA Head & Neck 01/01: no acute territorial infarct, intracranial hemorrhage, or mass effect PULM: - Goal SpO2 > 90%, on RA - IS, pulmonary toilet CV: # Aortic arch/descending thoracic aortic dissection # s/p Right Carotid to Subclavian Bypass:(01/01, Demond) R Carotid to Subclavian Bypass. Vertebral artery transposed onto R external Carotid artery. Clamp time 22 min. Medial ATILIO drain in carotid dissection bed. Lateral HP drain in subclavian dissection bed. Postoperative course c/b episodes of bradycardia likely 2/2 dissection close to carotid bulb. # 01/02 S/p F/B-EVAR - SBP goal 110-160, HR < 100 - Current Antihypertensives: labetalol + amlodipine + clonidine + hydralazine # Tachycardia:resolved Differentials include hypovolemia (not volume responsive) vs pain/anxiety/ vs PE - Gianluca negative #Bradycardia: resolved S/p carotid bulb manipulation - Responsive to glycopyrrolate, dilute epinephrine - replete lytes K > 4, Mg > 2.2 # HTN: - SBP goal 110-160 - Current Antihypertensives: labetalol + amlodipine + clonidine + hydralazine GI: # Nutrition - Regular Diet RENAL/: #BÁRBARA on CKD: resolved #CKD 3A: Baseline Scr 1.7-2.1. Follows with Nephrology. - replete lytes K > 4, Mg > 2.2 - day, I/Os ENDO: - BG goal < 180, euglycemic without insulin ID: - Perioperative Ancef per Vascular HEME: #Chronic DIC: #Hypofibrinogenemia: #Thrombocytopenia: Follows with Dr. Hamilton as outpatient, last seen 12/26. Chronic DIC thought to be caused by abnormal endothelium in areas of dissection with exposure to underlying collagen resulting in thrombosis and plasminogen activation with associated fibrinolysis. Per Dr. Hamilton, this is confirmed by elevated D-dimer, markedly increased prothrombin fragment, decreased fibrinogen, decreased PLT, decreased factor XIII. Apixaban 2.5mg BID was started in 03/2023 to stop the consumptive process. It has been held since 12/28. - Resumed home Apixaban 2.5mg BID 01/05 - PO Vitamin B12 + Folate Repletion - Trend PLT, Fibrinogen, INR daily - TEG pre-op 01/02 - without derangement - SCDs - Hematology consulted, appreciate recs Tachycardia 01/03/2023 Overview (02/28/2024): Last Assessment & Plan: Patient's EKG today showing sinus tachycardia with a heart rate of 111 bpm. This is likely related to him missing his afternoon dose of labetalol. 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 Patient is also known to have anemia. Defer to hematology whom he will be seeing in the coming weeks. Thoracoabdominal aortic aneurysm (TAAA) without rupture 09/09/2022 Assessment & Plan (09/19/2022 1:14 PM EST): Reason for ICU admit: Neck bleeding Neuro: #Pain # Chronic back pain - tylenol prn, oxycodone prn, prn dilaudid - Home gabapentin LLE slightly weaker at baseline , walks with cane Pulmonary: #Neck Hematoma Had ongoing bleeding after ATILIO drain removed. Taken to OR for exploration 2/3 - appreciate heme recs: maintain fibrinogen >100 and transfuse cryoprecipitate as needed, 150 for bleeding - 09/16 TEG with concern for hypofibrinogemia despite normal [...] diet IDDSI 4 - home PPI - SENIOR DATA WAREHOUSE ARCHITECT evaluated 09/15: dysphagia soft easy to chew [...] Jonah Stevens and Dr. Taveras (fellow) at [facility]. See media tab. 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 On Coumadin. Pt is followed by vascular surgeon at [facility] U/S of upper extremties 06/06/2017 showed Right subclavian,Axillary and Basilic vein thrombosis. On coumadin. Pt follow with Vascular surgeon at [facility]. His Coumadin is managed by vascular Urinary incontinence 06/07/2017 Dissection of thoracic aorta 06/07/2017 Overview (01/17/2022): 06/05/17 - AAA repaired at [facility] Dr. Schwartz. Pt. Had flank pain and proceeded to [facility] where CAT showed Type A aortic dissection involving ascending aorta . Post-op weakness in bilateral lower extremities suspected ischemic cord injury. 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) 06/18/2025 3:30 PM EST Office Visit [facility] Center for Hematology [address] [place] [address], 7th Floor, [address] [place] [address] Tristen Hamilton MD, DPHIL Disseminated intra-vascular coagulation; Anemia, unspecified type 06/18/2025 Telephone [facility] for H[facility]ology [address] [place] [address], 7th Floor, [address] [place] [address] Tristen Hamilton MD, DPHIL 06/16/2025 Telephone [facility] [address] [place] [address], 7th Floor, [address] [place] [phone] Tristen Hamilton MD, DPHIL 05/08/2025 Refill [facility] Vascular Surgery [address] [place] [address], 4th Floor, [address] [place] [address] Navarro Velázquez MD, MSc Medication Refill 05/08/2025 Refill [facility] Vascular Surgery [address] [place] [address], 4th Floor, [address] [place] [address] Emily Iqbal, MICHELLE Medication Refill 05/04/2025 Refill [facility] Vascular Surgery [address] [facility], 4th Floor, [address] [place] [address] Navarro Velázquez MD, MSc Medication Refill 05/02/2025 10:30 AM EDT Office Visit [facility] Vascular Surgery [address] [facility], 4th Floor, [address] [place] [address] Paddy Maya MD Thoracoabdominal aortic aneurysm (TAAA), unspecified part, unspecified whether ruptured (Primary Dx) 05/02/2025 9:45 AM EDT - 05/02/2025 11:59 PM EDT Hospital Encounter [facility] - [place] [address] [facility] [place] [address] Paddy Maya MD Discharge Disposition: Home or Self Care 03/19/2025 Procedure Pass [facility] - [place] [address] [facility] [place] [address] 03/19/2025 Procedure Pass [facility] - [place] [address] [facility] [place] [address] from Last 3 Months Immunizations Immunization Administration Dates Next Due Influenza Quadrivalent Prese rvative Free IM 09/23/2022(Deferred: Patient Refused) Social History Tobacco Use Types Packs/Day Years Used Date Smoking Tobacco: Never Smokeless Tobacco: Never Tobacco Cessation:Counseling Given: Not Answered Alcohol Use Standard Drinks/Week Comments Never 0 [...] Sign Reading Time Taken Comments Blood Pressure 109/55 06/18/2025 3:18 PM EST Pulse 68 06/18/2025 3:18 PM EST Temperature 37 C (98.6 F) 06/18/2025 3:18 PM EST Respiratory Rate 16 06/18/2025 3:18 PM EST Oxygen Saturation 98% 06/18/2025 3:18 PM EST Inhaled Oxygen Concentration 28% 09/05/2024 2 :00 AM EST Weight 58.1 kg (128 lb) 01/29/2025 3:02 PM EDT Height 160 cm (5' 3 ) 11/06/2024 11:45 PM EDT Body Mass Index 22.67 11/06/2024 11:45 PM EDT Plan of Treatment Upcoming Encounters Date Type Department Care Team (Late st Contact Info) Description 09/23/2025 12:00 PM EST Blood Draw [facility] Center for [facility]ology [address] [facility], 7th Floor, [address] [place] [address] Tristen Hamilton MD, DPWYL [address] [place] [phone] [email or web address] 09/23/2025 1:00 PM EST Office Visit [facility] Center for Hematology [address] [place] [address], 7th Floor, [address] [place] [address] Tristen Hamilton MD, DPWYL [address] [place] [id number] [email or web address] Health Maintenance Due Date Last Done Comments Adult Td,Tdap Booster 1959 DEPRESSION SCREENING 1971 HEPATITIS C SCREENING 1977 COLOGUARD 2004 COLONOSCOPY 2004 COLORECTAL CANCER SCREENING 2004 FIT TEST 2004 FOBT 2004 SIGMOIDOSCOPY 2004 VIRTUAL COLONOSCOPY 2004 RSV VACCINE (1 - Risk 50-74 years 1-dose series) 2009 INFLUENZA VACCINE (#1) 2025 COVID-19 VACCINE ( season) 2025 07/16/2021, 12/21/2020, 11/21/2020 BLOOD PRESSURE 12/16/2025 06/18/2025 CREATININE LEVEL 06/18/2026 06/18/2025, 10/2024, 01/29/2025, Additional history exists ZOSTER VACCINES Completed 09/01/2021, 10/07/2020 PNEUMOCOCCAL VACCINES (50+ years) Completed 03/13/2024 SMOKING STATUS SCREENING (Once After 26 Yrs) Completed 08/05/2024 HEPATITIS A VACCINES Aged Out No long er eligible based on patient's age to complete this topic HIB VACCINES Aged Out No longer eligi ble based on patient's age to complete this topic MENINGOCOCCAL VACCINES (ACWY) Aged Out No longer eligible based on patient's age to complete this topic MENINGOCOCCAL VACCINES (B) Aged Out N o longer eligible based on patient's age to complete this topic Medical Devices Implanted Type Area Allocation Analyst Device Identifier Shelf Expiration Date Model / Serial / Lot Device Closure 6-7fr Mynxgrip Vascular Femoral Artery Atraumatic Tip--Order In Mult Of 11-- - [id number] Implanted:Qty: 1 on 01/03/2024 by Kirill Kraft MD at [facility] Closure Device Right: Arterial CORD[employer] JAMIE 11/11/2025 [id number] / / [id number] Description:Right femoral ar heydi Plug Vascular 6fr 12mm 9mm 100cm .071in 2 Amplatzer Nitinol Mesh Self Expanding Occlusion Device Quality Assurance Project Manager [employer]ise - [id number] Implanted:Qty: 1 on 10/30/2024 by Paddy Maya MD at [facility] Closure Device Right: Subclavian [employer] 07/13/2029 9-AVP2-01 2 / / [id number] Plug Vascular 8fr 16mm 12mm 100cm .087in 2 Amplatzer Nitinol Mesh Self Expanding Occlusion Device Quality Assurance Project Manager [employer]ise - [id number] Implanted:Qty: 1 on 11/08/2024 by Emanuel Toure MD at [facility] Closure Device N/A: Arterial [employer] 12/11/2028 9-AVP2-01 6 [id number] Description:Innominate Plug Vascular 8fr 16mm 12mm 100cm .087in 2 Amplatzer Nitinol Mesh Self Expanding Occlusion Device Quality Assurance Project Manager Cable Vise - [id number] Implanted:Qty: 1 on 11/08/2024 by Emanuel Toure MD at [facility] Closure Device N/A: Arterial [employer] 02/11/2028 9-AVP2-01 6 [id number] Description:Innominate Plug Vascular 6fr 12mm 9mm 100cm .071in 2 Amplatzer Nitinol Mesh Self Expanding Occlusion Device Quality Assurance Project Manager Cable Vise - [id number] Implanted:Qty: 1 on 11/08/2024 by Emanuel Toure MD at [facility] Closure Device N/A: Arterial [employer] 07/13/2029 9-AVP2-01 2 / / [id number] Description:Innominate Device Closure 6-7fr Mynxgrip Vascular Femoral Artery Atraumatic Tip--Order In Mult Of 11-- - [id number] Implanted:Qty: 1 on 11/08/2024 by Emanuel Toure MD at [facility] Closure Device Right: Groin CORDIS US JAMIE 11/11/2025 [id number] / / [id number] Coil Embolization .035in 8mm 4mm Tornado [employer] - [id number] Implanted:Qty: 1 on 09/04/2024 by Paddy Maya MD at [facility] Coil N/A: Arterial [employer] 01/15/2029 MWCE-35-8 /4-TORNAD O- / / [id number] Description:Splenic artery Coil Embolization .035in 8mm 4mm Tornado [place] - [id number] Implanted:Qty: 1 on 09/04/2024 by Paddy Maya MD at [facility] Coil N/A: Arterial [employer] 01/15/2029 MWCE-35-8 /4-TORNAD O- / / [id number] Description:Splenic artery Coil Embolization .035in 8mm 4mm Tornado [place] - [id number] Implanted:Qty: 1 on 09/04/2024 by Paddy Maya MD at [facility] Coil N/A: Arterial [employer] 05/13/2029 MWCE-35-8 /4-TORNAD O- / / [id number] Description:Splenic artery Coil Embolization .035in 8mm 4mm Tornado [place] - [id number] Implanted:Qty: 1 on 09/04/2024 by Paddy Maya MD at [facility] Coil N/A: Arterial [employer] 05/17/2028 MWCE-35-8 /4-TORNAD O- / / [id number] Description:Splenic artery Coil Embolization .035in 8mm 4mm Tornado [place] - [id number] Implanted:Qty: 1 on 09/04/2024 by Paddy Maya MD at [facility] Coil N/A: Arterial [employer] 05/13/2029 MWCE-35-8 /4-TORNAD O- / / [id number] Description:Splenic artery Coil Embolization .035in 6mm 3mm Tornado [place] - [id number] Implanted:Qty: 1 on 09/04/2024 by Paddy Maya MD at [facility] Coil N/A: Arterial [employer] 03/20/2029 MWCE-35-6 /3-TORNAD O- / / [id number] Description:Gastric artery Coil Embolization .035in 6mm 3mm Tornado [employer] - [id number] Implanted:Qty: 1 on 09/04/2024 by Paddy Maya MD at [facility] Coil N/A: Arterial [employer] 06/04/2029 MWCE-35-6 /3-TORNAD O- / / [id number] Description:Gastric artery Coil Embolization .018in 5mm 2mm Microcoil [employer]ado [employer] - [id number] Implanted:Qty: 1 on 10/30/2024 by Paddy Maya MD at [facility] Coil Right: Arterial [employer] 05/21/2029 MWCE-18S- 5/2-TORNA DO- / / [id number] Description:Right internal m ammary Coil Embolization .018in 5mm 2mm Microcoil [employer] - [id number] Implanted:Qty: 1 on 10/30/2024 by Paddy Maya MD at [facility] Coil Right: Arterial [employer] 05/21/2029 MWCE-18S- 5/2-TORNA DO- / / [id number] Description:Right internal m ammary Coil Embolization .035in 8mm 4mm Tornado [employer] - [id number] Implanted:Qty: 1 on 11/08/2024 by Emanuel Toure MD at [facility] Coil N/A: Arterial [employer] 06/14/2028 MWCE-35-8 /4-TORNAD O- / / [id number] Description:innominate arter y Coil Embolization 6mm 14cm .035in Jessica Soft [place] Synthetic Fiber Stretch - [id number] Implanted:Qty: 1 on 11/08/2024 by Emanuel Toure MD at [facility] Coil N/A: Arterial [employer] 07/19/2028 MWCE-35-1 4-6-NESTE R- / / [id number] Description:innominate arter y Coil Embolization 10mm 14cm .035in Jessica Soft [place] Synthetic Fiber Stretch - [id number] Implanted:Qty: 1 on 11/08/2024 by Emanuel Toure MD at [facility] Coil N/A: Arterial [employer] 12/10/2028 MWCE-35-1 4-10-NEST ER- / / [id number] Description:innominate arter y Coil Embolization 10mm 14cm .035in Jessica Soft [place] Synthetic Fiber Stretch - [id number] Implanted:Qty: 1 on 11/08/2024 by Emanuel Toure MD at [facility] Coil N/A: Arterial [employer] 12/10/2028 MWCE-35-1 4-NEST ER- / / [id number] Description:innominate arter y Coil Embolization 6mm 14cm .035in Jessica Soft [place] Synthetic Fiber Stretch - [id number] Implanted:Qty: 1 on 11/08/2024 by Emanuel Toure MD at [facility] Coil N/A: Arterial [employer] 02/13/2029 MWCE-35-1 4-6-NESTE R- / / [id number] Description:Innominate Coil Embolization 12mm 14cm .035in Jessica Soft [place] Synthetic Fiber Stretch - [id number] Implanted:Qty: 1 on 11/08/2024 by Emanuel Toure MD at [facility] Coil N/A: Arterial [employer] 05/14/2029 MWCE-35-1 412-NEST ER- / / [id number] Description:Innominate Coil Embolization .035in 6mm 3mm Tornado [employer] - [id number] Implanted:Qty: 1 on 11/08/2024 by Emanuel Toure MD at [facility] Coil N/A: Arterial [employer] 12/07/2028 MWCE-35-6 /3-TORNAD O- / / [id number] Description:Thyrocervical tr unk Reinforced Iliac Side Branch Endovascular Graft Implanted:Qty: 1 on 09/04/2024 by Paddy Maya MD at [facility] Graft Left: Iliac Artery 05/23/2027 [id number] / / [id number] Description:Left iliac arter y Plug Vascular 8fr 14mm 10mm 100cm .087in 2 Amplatzer Nitinol Mesh Self Expanding Occlusion Device Quality Assurance Project Manager Cable [employer]ise - [id number] Implanted:Qty: 1 on 11/08/2024 by Emanuel Toure MD at [facility] Graft N/A: Arterial [employer] 03/13/2028 9-AVP2-01 [id number] Description:Innominate Coil Embolization 8mm 14cm .035in Jessica Soft [place] Synthetic Fiber Stretch - [id number] Implanted:Qty: 1 on 11/08/2024 by Emanuel Toure MD at [facility] NODATA N/A: Arterial [employer] 05/08/2029 MWCE-35-1 4-8-NESTE R- / / [id number] Description:innominate arter y Coil Embolization 8mm 14cm .035in Jessica Soft [place] Synthetic Fiber Stretch - [id number] Implanted:Qty: 1 on 11/08/2024 by Emanuel Toure MD at [facility] NODATA N/A: Arterial [employer] 05/08/2029 MWCE-35-1 4-8-NESTE R- / / [id number] Description:Innominate Coil Embolization 8mm 14cm .035in Jessica Soft [place] Synthetic Fiber Stretch - [id number] Implanted:Qty: 1 on 11/08/2024 by Emanuel Toure MD at [facility] NODATA N/A: Arterial [employer] 05/08/2029 MWCE-35-1 4-8-NESTE R- / / [id number] Description:Innominate Coil Embolization .018in 6mm 2mm Microcoil [employer] - [id number] Implanted:Qty: 1 on 10/30/2024 by Paddy Maya MD at [facility] STANDARD Right: Arterial [employer] 08/01/2029 MWCE-18S- 6/2-TORNA DO- / / [id number] Description:Right internal m ammary Coil Embolization .018in 6mm 2mm Microcoil [employer] - [id number] Implanted:Qty: 1 on 10/30/2024 by Paddy Maya MD at [facility] STANDARD Right: Arterial [employer] 07/18/2029 MWCE-18S- 6/2-TORNA DO- / / [id number] Description:Right internal m ammary Coil Embolization .018in 6mm 2mm Microcoil [employer] - [id number] Implanted:Qty: 1 on 10/30/2024 by Paddy Maya MD at [facility] STANDARD Right: Arterial [employer] 07/18/2029 MWCE-18S- 6/2-TORNA DO- / / [id number] Description:Right internal m ammary Coil Embolization .018in 6mm 2mm Microcoil [employer] - [id number] Implanted:Qty: 1 on 10/30/2024 by Paddy Maya MD at [facility] STANDARD Right: Arterial [employer] 07/18/2029 MWCE-18S- 6/2-TORNA DO- / / [id number] Description:Right internal m ammary Catheter Viabahn Vbx 8mm 59mm 135cm Stent Graft Endoprosthesis - [id number] Implanted:Qty: 1 on 01/03/2024 by Paddy Maya MD at [facility] Stent Left: Arterial [employer] 06/23/2026 [id number] A / [id number] / Description:Left carotid art jaimie Catheter Viabahn Vbx 8mm 79mm 135cm Stent Graft Endoprosthesis - [id number] Implanted:Qty: 1 on 01/03/2024 by Paddy Maya MD at [facility] Stent N/A: Aorta [employer] 03/19/2026 [id number] A / [id number] / Description:Innominate arter y Catheter Viabahn Vbx 10mm 59mm 135cm Stent Graft Endoprosthesis - [id number] Implanted:Qty: 1 on 01/03/2024 by Paddy Maya MD at [facility] Stent N/A: Arterial [employer] 02/05/2026 [id number] A / [id number] / Description:Innominate arter y Catheter Viabahn Vbx 7mm 79mm 135cm Stent Graft Endoprosthesis - [id number] Implanted:Qty: 1 on 01/03/2024 by Paddy Maya MD at [facility] Stent Left: Arterial [employer] 03/21/2026 [id number] A / [id number] / Description:Left subclavian artery Catheter Viabahn Vbx 10mm 59mm 135cm Stent Graft Endoprosthesis - [id number] Implanted:Qty: 1 on 01/03/2024 by Paddy Maya MD at [facility] Stent N/A: Arterial [employer] 02/05/2026 [id number] A / [id number] / Description:Innominate arter y Stent Everflex 6fr 7mm 20mm 120cm .035in Otw Peripheral Self-Expanding - [id number] Implanted:Qty: 1 on 09/04/2024 by Paddy Maya MD at [facility] Stent Left: Arterial [employer] 03/19/2027 FND01-72- 020-120 / / [id number] Description:Left renal Stent Everflex 6fr 8mm 30mm 120cm .035in Otw Peripheral Self-Expanding - [id number] Implanted:Qty: 1 on 09/04/2024 by Paddy Maya MD at [facility] Stent N/A: Arterial [employer] 03/22/2027 AUH43-26- 030-120 / / [id number] Description:Hepatic artery [place] Viabahn Vbx Balloon Expandable Endoprothesis Implanted:Qty: 1 on 09/04/2024 by Paddy Maya MD at [facility] Stent N/A: Arterial 03/05/2027 [id number] 2A / [id number] / Description:Celiac artery Stent Protege Gps 6fr 10mm 30mm 120cm .035in Otw Biliary Nitinol Catheter Self-Expanding - [id number] Implanted:Qty: 1 on 09/04/2024 by Paddy Maya MD at [facility] Stent N/A: Arterial [employer] 04/17/2027 PDVF23-71 -30-120 / / [id number] Catheter Viabahn Vbx 8mm 79mm 135cm Stent Graft Endoprosthesis - [id number] Implanted:Qty: 1 on 09/04/2024 by Paddy Maya MD at [facility] Stent Left: Iliac Artery [employer] 05/24/2025 [id number] A / [id number] / Description:Left iliac arter y Stent Protege Gps 6fr 14mm 60mm 120cm .035in Otw Biliary Self-Expanding - [id number] Implanted:Qty: 1 on 09/04/2024 by Paddy Maya MD at [facility] Stent Right: Aorta [employer] 11/17/2025 SER B65-14 -60-120 / / [id number] Stent Protege Gps 6fr 14mm 60mm 120cm .035in Otw Biliary Self-Expanding - [id number] Implanted:Qty: 1 on 09/04/2024 by Paddy Maya MD at [facility] Stent Right: Aorta [employer] 11/01/2026 SER B65-14 -60-120 / / [id number] Patch Tapered .45mm 8cm Xw.8 Graft Tissue Vascular [employer] - [id number] Implanted:Qty: 1 on 09/11/2022 by Laverne Lagos MD at [facility] Left: Neck [employer] 04/10/2028 E0.8P8 / 0000 / [id number] Patch Hemostasis 9.5cmx4.8 Cardiovascular Tachosil Fibrin Sealant Manual Compression Cs/6ea - [id number] Implanted:Qty: 7 on 09/16/2022 by Herminia Melgar MD at [facility] Left: Neck VouchAR FENWAL [id number] / / Stretch Vascular Graft Fep Trmovable G8mm X 40cm Implanted:Qty: 1 on 01/02/2024 by Laverne Lagos MD at [facility] Right: Arterial 12/13/2027 [id number] 040L / [id number] / Description:RIGHT CAROTID-ALCANTARA BCLAVIAN ARTERY Thoracic-Ascendi ng-Branch Implanted:Qty: 1 on 01/03/2024 by Paddy Maya MD at [facility] N/A: Aorta [employer] 06/09/2025 [id number] / / [id number] Description:Thoracic aorta Icast Covered Stent System 120cm 22mm 6.9mm Implanted:Qty: 1 on 09/04/2024 by Paddy Maya MD at [facility] Left: Arterial 01/28/2027 [id number] / [id number] / Description:Left renal Icast Covered Stent System 120cm 22mm 6.9mm Implanted:Qty: 1 on 09/04/2024 by Paddy Maya MD at [facility] Left: Arterial 03/27/2027 85136 / [id number] / Description:Left renal Stent Covered [id number] Icast - [id number] Implanted:Qty: 1 on 09/04/2024 by Paddy Maya MD at [facility] N/A: Arterial [employer] [facility] 03/22/2026 94261 / [id number] / Description:SMA Jqp-Iujl-Vzop-In verted-Leg Implanted:Qty: 1 on 09/04/2024 by Paddy Maya MD at [facility] N/A: Aorta [employer] 05/23/2027 [id number] / / [id number] [place] Viabahn [id number] Implanted:Qty: 1 on 09/04/2024 by Paddy Maya MD at [facility] Left: Iliac Artery 03/18/2027 [id number] 2A / [id number] / Description:Left iliac arter y Stent Graft 14fr 18u13ii Endovascular Zenith Spiral Z Aaa Ss Polyester Leg - [id number] Implanted:Qty: 1 on 09/04/2024 by Paddy Maya MD at [facility] Right: Iliac Artery [employer] 09/05/2026 ZSLE-13-3 9-ZT / / [id number] Stent Covered [id number] Icast - [id number] Implanted:Qty: 1 on 09/04/2024 by Paddy Maya MD at [facility] Right: Aorta [employer] 01/22/2027 [id number] / / [id number] [place] Viabahn [id number] Large Implanted:Qty: 1 on 09/04/2024 by Paddy Maya MD at [facility] Right: Iliac Artery 08/21/2026 [id number] 2A / [id number] / Thoraco-Abdomina [id number]-[id number] Implanted:Qty: 1 on 09/04/2024 by Paddy Maya MD at [facility] N/A: Aorta 05/23/2027 [id number] / / [id number] Description:Abdominal Aorta Graft Endovascular Thoracic Zenith Alpha Proximalimal Component 32 55 W - [id number] Implanted:Qty: 1 on 09/04/2024 by Paddy Maya MD at [facility] N/A: Aorta [employer] 05/04/2026 ZTA-P-32- 155-W / / [id number] Description:Descending thora cic Graft Endovascular Thoracic Zenith Alpha Proximalimal Component 32 55 W - [id number] Implanted:Qty: 1 on 09/04/2024 by Paddy Maya MD at [facility] N/A: Aorta [employer] 12/13/2025 ZTA-P-32- 155-W / / [id number] Description:Descending thora cic [place] Viabahn Vbx [id number] Implanted:Qty: 1 on 09/04/2024 by Paddy Maya MD at [facility] Right: Arterial 02/26/2027 [id number] A / [id number] / Description:Right renal Icast Covered Stent System 120cm 22mm 6.9mm Implanted:Qty: 1 on 09/04/2024 by Paddy Maya MD at [facility] Right: Arterial 01/22/2027 21495 / [id number] / Description:Right renal Coil Mreye 15mm 15cm .035in Embolization Vascular Stretch Standard - [id number] Implanted:Qty: 1 on 11/08/2024 by Emanuel Toure MD at [facility] N/A: Arterial [employer] 12/28/2028 IMWCE-35- 15-15 / / [id number] Description:Innominate Coil Mreye 15mm 15cm .035in Embolization Vascular Stretch Standard - [id number] Implanted:Qty: 1 on 11/08/2024 by Emanuel Toure MD at [facility] N/A: Arterial [employer] 12/28/2028 IMWCE-35- 15-15 / / [id number] Description:Innominate Plug Vascular 6fr 8x16mm Amplatzer Mesh Nitinol Embolization Occlusion Quality Assurance Project Manager [employer] - [id number] Implanted:Qty: 1 on 11/08/2024 by Emanuel Toure MD at [facility] N/A: Arterial [employer] 04/13/2028 9-PLUG-01 [id number] Description:Innominate Plug Vascular 6fr 8x16mm Amplatzer Mesh Nitinol Embolization Occlusion Quality Assurance Project Manager [employer] - [id number] Implanted:Qty: 1 on 11/08/2024 by Emanuel Toure MD at [facility] N/A: Arterial [employer] 04/13/2028 9-PLUG-01 [id number] Description:Innominate Icast Covered Stent System 120cm 22mm 6.9mm Implanted:Qty: 1 on 11/08/2024 by Emanuel Toure MD at [facility] Left: Arterial 06/11/2027 29714 / [id number] / Description:Renal artery Procedures Procedure Name Priority Date/Time Associated Diagnosis Comments COPPER Today 06/18/2025 2:32 PM EST 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) SPECIAL COAGULATION INTERPRETATION Routine 06/18/2025 2:32 PM EST Disseminated intra-vascular coagulation TOTAL PROTEIN Routine 06/18/2025 2:32 PM EST Disseminated intra-vascular coagulation Anemia, unspecified type IMMUNOGLOBULINS IGG, IGA, IGM Routine 06/18/2025 2:32 PM EST Disseminated intra-vascular coagulation Anemia, unspecified type DIFFERENTIAL, MANUAL (SYSMEX) Routine 06/18/2025 2:32 PM EST Disseminated intra-vascular coagulation CBC AND DIFFERENTIAL Routine 06/18/2025 2:32 PM EST Disseminated intra-vascular coagulation FREE LIGHT CHAINS, SERUM Routine 06/18/2025 2:32 PM EST Disseminated intra-vascular coagulation Anemia, unspecified type SPEP PANEL Routine 06/18/2025 2:32 PM EST Disseminated intra-vascular coagulation Anemia, unspecified type TSH WITH REFLEX Routine 06/18/2025 2:32 PM EST Disseminated intra-vascular coagulation VITAMIN C Routine 06/18/2025 2:32 PM EST Disseminated intra-vascular coagulation C-REACTIVE PROTEIN (CRP) Routine 06/18/2025 2:32 PM EST Disseminated intra-vascular coagulation CBC AND DIFFERENTIAL Routine 06/18/2025 2:32 PM EST Disseminated intra-vascular coagulation RETICULOCYTES Routine 06/18/2025 2:32 PM EST Disseminated intra-vascular coagulation SEDIMENTATION RATE (ESR) Routine 06/18/2025 2:32 PM EST Disseminated intra-vascular coagulation SPECIAL SLIDE BOX Routine 06/18/2025 2:3 2 PM EST Disseminated intra-vascular coagulation IRON AND IRON BINDING CAPACITY Routine 06/18/2025 2:32 PM EST Disseminated intra-vascular coagulation FERRITIN Routine 06/18/2025 2:32 PM EST Disseminated intra-vascular coagulation COMPREHENSIVE METABOLIC PANEL (CMP) Routine 06/18/2025 2:32 PM EST Disseminated intra-vascular coagulation LDH Routine 06/18/2025 2:32 PM EST Disseminated intra-vascular coagulation PROTHROMBIN FRAGMENT 1 AND 2 Routine 06/18/2025 2:32 PM EST Disseminated intra-vascular coagulation FIBRINOGEN Routine 06/18/2025 2:32 PM EST Disseminated intra-vascular coagulation D-DIMER Routine 06/18/2025 2:32 PM EST Disseminated intra-vascular coagulation ERYTHROPOIETIN (EPO) LEVEL Routine 06/18/2025 2:32 PM EST Disseminated intra-vascular coagulation FOLATE Routine 06/18/2025 2:32 PM EST Disseminated intra-vascular coagulation VITAMIN B12 Routine 06/18/2025 2:32 PM EST Disseminated intra-vascular coagulation FACTOR XIII SCREEN Routine 06/18/2025 2: 32 PM EST Disseminated intra-vascular coagulation CT ANGIO ABDOMEN/PELVIS WITH AND WITHOUT CONTRAST Routine 05/02/2025 10:48 AM EDT 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 Dissection of thoracoabdominal aorta S/P endovascular aneurysm repair CT ANGIO CHEST WITH AND WITHOUT CONTRAST Routine 05/02/2025 10:48 AM EDT 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 Dissection of thoracoabdominal aorta S/P endovascular aneurysm repair from Last 3 Months Results * Peripheral Blood Smear (Request for Slide Only) (06/18/2025 2:32 PM EST) Peripheral Blood Smear Slide Slide Available 06/18/2025 3:38 PM EST [facility] Blood (Blood) Venipuncture / Unknown 06/18/2025 2:32 PM EST 06/18/2025 2:49 PM EST Dion Roque MD LAB BLOOD BKR ELÍAS POTTERKUSH Final Result Performing Organization Address City/[facility]/ZIP Co de Phone Number [address] [address] * (ABNORMAL) Reticulocytes (06/18/2025 2:32 PM EST) Retic (%) 1.1 0.7 - 2.5 % 06/18/2025 3:38 PM EST [facility] Immature Retic Fraction 15.6(H) 2.3 - 13.4 % 06/18/2025 3:38 PM EST [facility] Absolute Retic 0.03 M cells/uL 06/18/2025 3:38 PM [facility] Retic Hemoglobin Equivalent 26.0(L) 31.5 - 36.0 pg 06/18/2025 3:38 PM EST [facility] Comment:A decreased reticulo cyte hemoglobin may be indicative of low iron availability. Blood (Blood) Venipuncture / Unknown 06/18/2025 2:32 PM EST 06/18/2025 2:49 PM EST Dion Roque MD LAB BLOOD ERICKAR ELÍAS JEROD Final Result Performing Organization Address [facility]/ZIP Co de Phone Number [address] [address] * (ABNORMAL) Lactate Dehydrogenase (LDH) (06/18/2025 2:32 PM EST) LDH 318(H) 135 - 225 U/L 06/18/2025 3:12 PM EST [facility] Blood (Blood) Venipuncture / Unknown 06/18/2025 2:32 PM EST 06/18/2025 2:49 PM EST Dion Roque MD LAB BLOOD BKR ORDE ABBEYKUSH Final Result Performing Organization Address City/[facility]/ZIP Co de Phone Number [address] [address] * (ABNORMAL) Immunoglobulins IgG, IgA, IgM (06/18/2025 2:32 PM EST) Immunoglobulin G 1,625(H) 700 - 1,600 mg/dL 06/18/2025 4:39 PM [facility] Immunoglobulin A 243 70 - 400 mg/dL 06/18/2025 4:39 PM [facility] Immunoglobulin M 100 40 - 230 mg/dL 06/18/2025 4:39 PM [facility] Blood (Blood) Venipuncture / Unknown 06/18/2025 2:32 PM EST 06/18/2025 2:49 PM EST us Dion Roque MD LAB BLOOD BKR ELÍAS NEWSOME Final Result [address] [address] * (ABNORMAL) Comprehensive Metabolic Panel (CMP) (06/18/2025 2:32 PM EST) Pathologist [facility] Sodium 141 136 - 145 mmol/L 06/18/2025 3:12 PM [facility] Potassium 4.4 3.4 - 5.1 mmol/L 06/18/2025 3:12 PM [facility] Chloride 105 98 - 107 mmol/L 06/18/2025 3:12 PM [facility] CO2 26 20 - 31 mmol/L 06/18/2025 3:12 PM [facility] Anion Gap 10 3 - 17 mmol/L 06/18/2025 3:12 PM [facility] BUN 29(H) 6 - 23 mg/dL 06/18/2025 3:12 PM [facility] Creatinine 1.63(H) 0.60 - 1.30 mg/dL 06/18/2025 3:12 PM [facility] eGFR 46(L) >59 mL/min/1. 73m2 06/18/2025 3:12 PM [facility] Comment:Estimated glomerular filtration rate calculated using the CKD-EPI refit equation. Glucose 113(H) 70 - 99 mg/dL 06/18/2025 3:12 PM [facility] Calcium 9.1 8.5 - 10.5 mg/dL 06/18/2025 3:12 PM [facility] AST 18 10 - 40 U/L 06/18/2025 3:12 PM EST [facility] ALT 17 10 - 55 U/L 06/18/2025 3:12 PM EST [facility] Alkaline Phosphatase 149(H) 40 - 130 U/L 06/18/2025 3:12 PM EST [facility] Bilirubin, Total 0.7 0.0 - 1.2 mg/dL 06/18/2025 3:12 PM EST [facility] Total Protein 7.6 6.4 - 8.3 g/dL 06/18/2025 3:12 PM EST [facility] Albumin 3.8 3.5 - 5.2 g/dL 06/18/2025 3:12 PM EST [facility] Globulin 3.8 1.9 - 4.1 g/dL 06/18/2025 3:12 PM EST [facility] Blood (Blood) Venipuncture / Unknown 06/18/2025 2:32 PM EST 06/18/2025 2:49 PM EST us Dion Roque MD LAB BLOOD ERICKAR ELÍAS NEWSOME Final Result [address] [address] * (ABNORMAL) Erythropoietin (EPO) Level (06/18/2025 2:32 PM EST) [facility] Erythropoietin (EPO), S 46.1(H) 2.6 - 18.5 mIU/mL 06/20/2025 5:02 PM EST [facility] Blood (Blood) Venipuncture / Unknown 06/18/2025 2:32 PM EST 06/18/2025 2:49 PM EST Dion Roque MD LAB BLOOD BKR ORDE RABKUSH Final Result CARITO POTTS) [facility] [address] [place], [place] [address] [phone] * (ABNORMAL) Copper (06/18/2025 2:32 PM EST) Copper, S 190(H) 73 - 129 mcg/dL 06/20/2025 4:15 PM EST [facility] Comment: ADDITIONAL INFORMATION This test was developed and its performance characteristics determined by [facility] in a manner consistent with CLIA requirements. This test has not been cleared or approved by the U.S. Food and Drug Administration. Blood (Blood) 06/18/2025 2:3 2 PM EST 06/19/2025 2:04 AM EST Dion Roque MD LAB BLOOD BKR ELÍAS NEWSOME Final Result Performing Organization Address City/[facility]/ZIP Co de Phone Number ARZATE KATLYN) [facility] [address] [phone] * Vitamin C (06/18/2025 2:32 PM EST) [facility] Vitamin C 0.2 0.2 - 2.1 mg/dL 06/27/2025 6:36 AM EST [facility] (BEAKER) Comment: . This test was developed and its analytical performance characteristics have been determined by [facility], [place], [place]. It has not been cleared or approved by the FDA. This assay has been validated pursuant to the CLIA regulations and is used for clinical purposes. . Blood (Blood) Venipuncture / Unknown 06/18/2025 2:32 PM EST 06/18/2025 3:02 PM EST Narrative [facility] ([facility]) - 06/27/2025 6:36 AM EST [facility] Received Date and Time: [id number] Tristen Hamilton MD, DPHIL LAB BLOOD BKR ORDERAB LES Final Result Performing Organization Address City/[facility]/ZIP Co de Phone Number [facility] (BEAKER) [address] [address], [facility] (BEAKER) [address] [place] [address], [facility] * Differential, Manual (06/18/2025 2:32 PM EST) Neutrophils 68.7 % 06/18/2025 3:38 PM EST [facility] Bands 0.0 % 06/18/2025 3:38 PM EST [facility] Lymphocytes 20.0 % 06/18/2025 3:38 PM EST [facility] Monocytes 7.0 % 06/18/2025 3:38 PM EST [facility] Eosinophils 1.7 % 06/18/2025 3:38 PM EST [facility] Basophils 2.6 % 06/18/2025 3:38 PM EST [facility] Absolute Neutrophils 3.24 1.92 - 7.60 K/uL 06/18/2025 3:38 PM EST [facility] Absolute Lymphocytes 0.94 0.72 - 4.10 K/uL 06/18/2025 3:38 PM EST [facility] Absolute Monocytes 0.33 0.16 - 1.10 K/uL 06/18/2025 3:38 PM EST [facility] Absolute Eosinophils 0.08 0.00 - 0.50 K/uL 06/18/2025 3:38 PM EST [facility] Absolute Basophils 0.12 0.00 - 0.15 K/uL 06/18/2025 3:38 PM EST [facility] Diff Type Manual 06/18/2025 3:38 PM EST [facility] Blood (Blood) Venipuncture / Unknown 06/18/2025 2:32 PM EST 06/18/2025 2:49 PM EST us Dion Roque MD LAB BLOOD BKR ELÍAS NEWSOME Final Result [facility] [address] [place] [address] * (ABNORMAL) CBC and Differential (06/18/2025 2:32 PM EST) WBC 4.72 4.00 - 11.00 K/uL 06/18/2025 3:38 PM EST [facility] RBC 3.03(L) 4.50 - 5.90 M/uL 06/18/2025 3:38 PM [facility] Hemoglobin 8.2(L) 13.5 - 17.5 g/dL 06/18/2025 3:38 PM [facility] Hematocrit 27.4(L) 41.0 - 53.0 % 06/18/2025 3:38 PM [facility] MCV 90.4 80.0 - 100.0 fL 06/18/2025 3:38 PM [facility] MCH 27.1 27.0 - 31.0 pg 06/18/2025 3:38 PM [facility] MCHC 29.9(L) 32.0 - 36.0 g/dL 06/18/2025 3:38 PM [facility] MPV 9.5 8.4 - 12.0 fL 06/18/2025 3:38 PM [facility] RDW-CV 16.9(H) 11.5 - 14.5 % 06/18/2025 3:38 PM [facility] PLT 223 150 - 450 K/uL 06/18/2025 3:38 PM [facility] NRBC 0.0 <=0.0 /100 WBCs 06/18/2025 3:38 PM [facility] Absolute NRBC 0.00 <=0.00 K cells/uL 06/18/2025 3:38 PM [facility] Absolute Neutrophils 2.71 1.92 - 7.60 K/uL 06/18/2025 3:38 PM [facility] Comment:Automated cell count . Manual ANC may differ if performed. Diff Type Manual 06/18/2025 3:38 PM [facility] Blood (Blood) Venipuncture / Unknown 06/18/2025 2:32 PM EST 06/18/2025 2:49 PM EST us Dion Roque MD LAB BLOOD BKR ELÍAS NEWSOME Final Result [address] [address] * Special Coagulation Interpretation (06/18/2025 2:32 PM EST) Special Coagulation Interpretation 1. Factor XIII antigen is low, which can be due to liver dysfunction, consumption (disseminated intravascular coagulation, ECMO, surgery, or thrombosis, inflammatory bowel diseases, medications such as valproate and tocilizumab, or other conditions. Factor XIII levels are usually 20-70% or higher in these conditions. Hereditary deficiency is very rare. A prior urea clot-based assay was normal, which helps to rule out severe congenital FXIII deficiency. 2. The prothrombin fragment 1 + 2 is above the reference range. Prothrombin fragment 1 + 2 is produced when prothrombin (factor II) is converted to thrombin (factor IIa), an essential step in the clotting process. Thus, increases in prothrombin fragment 1 + 2 can be observed in conditions associated with active thrombosis (e.g., deep vein thrombosis, pulmonary embolism, disseminated intravascular coagulation, preeclampsia, trauma) and in hypercoagulable states (e.g., antithrombin III deficiency). Decreases in prothrombin fragment 1 + 2 can occur in patients undergoing anticoagulation therapy (e.g., with warfarin: PMID [id number]). Correlation with the patient's clinical status and other markers of thrombosis, such as D-dimer, is recommended. 06/25/2025 1:30 PM EST [facility] Comment: . Blood (Blood) Venipuncture / Unknown 06/18/2025 2:32 PM EST 06/18/2025 2:50 PM EST Dion Roque MD LAB BLOOD BKR ELÍAS NEWSOME Final Result [address] [address] * (ABNORMAL) Prothrombin Fragment 1 and 2 (06/18/2025 2:32 PM EST) Prothrombin Fragment 1+2 1,016(H) 41 - 372 06/24/2025 3:28 PM EST [facility] Blood (Blood) Venipuncture / Unknown 06/18/2025 2:32 PM EST 06/18/2025 2:50 PM EST Dion Roque MD LAB BLOOD ERICKAR ELÍAS NEWSOME Final Result Performing Organization Address City/[facility]/ZIP Co de Phone Number [address] [address] * (ABNORMAL) Factor XIII Screen (06/18/2025 2:32 PM EST) Factor XIII Solubility Screen Credit - Duplicate No Deficiency Detected, Credit - Duplicate 06/19/2025 10:44 AM EST [facility] Factor XIII Antigen 53.5(L) >60 - <150 06/19/2025 10:44 AM EST [facility] Blood (Blood) Venipuncture / Unknown 06/18/2025 2:32 PM EST 06/18/2025 2:50 PM EST Dion Roque MD LAB BLOOD BKR ORDE JEROD Final Result Performing Organization Address [facility] Co de Phone Number [address] [address] * Serum Protein Electrophoresis (SPEP) Panel, with Reflex to Immunofixation (06/18/2025 2:32 PM EST) [facility] Serum Protein Electrophoresis Interpretation Normal pattern, mild diffuse increase on gamma globulin. 06/19/2025 3:03 PM EST [facility] Comment: . Blood (Blood) Venipuncture / Unknown 06/18/2025 2:32 PM EST 06/18/2025 2:49 PM EST Dion Roque MD LAB BLOOD BKR ORDE JEROD Final Result Performing Organization Address City/[facility] Co de Phone Number [address] [address] * Thyroid Stimulating Hormone (TSH), with Reflex (06/18/2025 2:32 PM EST) Pathologist [facility] TSH 2.42 0.40 - 5.00 uIU/mL 06/18/2025 4:51 PM EST [facility] Blood (Blood) Venipuncture / Unknown 06/18/2025 2:32 PM EST 06/18/2025 2:49 PM EST us Dion Roque MD LAB BLOOD BKR ELÍAS NEWSOME Final Result [address] [address] * (ABNORMAL) Iron and Total Iron Binding Capacity (Iron/TIBC) (06/18/2025 2:32 PM EST) Pathologist [facility] Iron 26(L) 45 - 182 ug/dL 06/18/2025 4:35 PM EST [facility] Total Iron-Binding Capacity (TIBC) 210(L) 220 - 460 ug/dL 06/18/2025 4:35 PM EST [facility] Transferrin Saturation 12(L) 14 - 50 % 06/18/2025 4:35 PM EST [facility] Blood (Blood) Venipuncture / Unknown 06/18/2025 2:32 PM EST 06/18/2025 2:49 PM EST us Dion Roque MD LAB BLOOD ERICKAR ELÍAS NEWSOME Final Result [address] [address] * (ABNORMAL) Light Chains, Free, Serum (06/18/2025 2:32 PM EST) Pathologist [facility] Free [place] Light Chain 81.0(H) 3.3 - 19.4 mg/L 06/19/2025 8:48 AM EST [facility] Free [place] Light Chain 74.0(H) 5.7 - 26.3 mg/L 06/19/2025 8:48 AM EST [facility] Free [place] Lambda Ratio 1.09 0.26 - 1.65 06/19/2025 8:48 AM EST [facility] Blood (Blood) Venipuncture / Unknown 06/18/2025 2:32 PM EST 06/18/2025 2:50 PM EST us Dion Roque MD LAB BLOOD BKR ORDE RABKUSH Final Result Performing Organization Address City/[facility]/ZIP Co de Phone Number [address] [address] * (ABNORMAL) Erythrocyte Sedimentation Rate (ESR) (06/18/2025 2:32 PM EST) ESR 85(H) 0 - 20 mm/h 06/18/2025 4:13 PM EST [facility] Blood (Blood) Venipuncture / Unknown 06/18/2025 2:32 PM EST 06/18/2025 2:49 PM EST us Dion Roque MD LAB BLOOD BKR ORDE RABKUSH Final Result Performing Organization Address [facility] Co de Phone Number [address] [address] * (ABNORMAL) Fibrinogen (06/18/2025 2:32 PM EST) Fibrinogen 417(H) 200 - 400 mg/dL 06/18/2025 4:39 PM EST [facility] Blood (Blood) Venipuncture / Unknown 06/18/2025 2:32 PM EST 06/18/2025 2:49 PM EST us Dion Roque MD LAB BLOOD BKR ORDE RABKUSH Final Result Performing Organization Address [facility]/ZIP Co de Phone Number [address] [address] * (ABNORMAL) D-Dimer (06/18/2025 2:32 PM EST) D-Dimer >7,650(H) <500 ng/mL FEU 06/18/2025 4:39 PM EST [facility] Blood (Blood) Venipuncture / Unknown 06/18/2025 2:32 PM EST 06/18/2025 2:49 PM EST us Dion Roque MD LAB BLOOD BKR ORDE RABKUSH Final Result Performing Organization Address City/[facility] Co de Phone Number [address] [address] * (ABNORMAL) C-Reactive Protein (CRP) (06/18/2025 2:32 PM EST) C Reactive Protein 71.8(H) <10.0 mg/L 06/18/2025 8:36 PM EST [facility] Comment:NOTE: This reference range is for the evaluation of inflammation. Order CRP, High Sensitivity for cardiac risk status evaluation. Blood (Blood) Venipuncture / Unknown 06/18/2025 2:32 PM EST 06/18/2025 2:49 PM EST us Dion Roque MD LAB BLOOD BKR ELÍAS NEWSOME Final Result Performing Organization Address [facility] Co de Phone Number [address] [address] * Protein, Total (06/18/2025 2:32 PM EST) Total Protein 7.3 6.4 - 8.3 g/dL 06/18/2025 4:39 PM EST [facility] Blood (Blood) Venipuncture / Unknown 06/18/2025 2:32 PM EST 06/18/2025 2:49 PM EST us Dion Roque MD LAB BLOOD ERICKAR ELÍAS NEWSOME Final Result Performing Organization Address [facility] Co de Phone Number [address] [address] * Folate (06/18/2025 2:32 PM EST) Folic Acid 10.1 >4.7 ng/mL 06/18/2025 4:51 PM EST [facility] Blood (Blood) Venipuncture / Unknown 06/18/2025 2:32 PM EST 06/18/2025 2:49 PM EST us Dion Roque MD LAB BLOOD BKR ORDFlip NEWSOME Final Result [address] [address] * (ABNORMAL) Ferritin (06/18/2025 2:32 PM EST) Ferritin 1,280(H) 30 - 400 ug/L 06/18/2025 7:32 PM EST [facility] Blood (Blood) Venipuncture / Unknown 06/18/2025 2:32 PM EST 06/18/2025 2:49 PM EST us Dion Roque MD LAB BLOOD BKR ORDE JEROD Final Result [address] [address] * Vitamin B12 (06/18/2025 2:32 PM EST) Vitamin B12 426 232 - 1,245 pg/mL 06/18/2025 7:28 PM EST [facility] Blood (Blood) Venipuncture / Unknown 06/18/2025 2:32 PM EST 06/18/2025 2:49 PM EST Dion Roque MD LAB BLOOD BKR ORDE ABBEYKUSH Final Result [address] [address] * CT ANGIO ABDOMEN/PELVIS WITH AND WITHOUT CONTRAST (05/02/2025 10:48 AM EDT) Anatomical Region Laterality Modality Abdomen, Abdominal Vasculature C omputed Tomography 06/10/2025 7:26 PM EDT Addenda Addendum by Galindo Harris MD on 06/11/2025 1:44 PM EDT ADDENDUM: report of CTA chest and abdomen is pasted below: CT ANGIO CHEST WITH AND WITHOUT CONTRAST Referring clinician's provided indication for this examination in Epic: * Aortic disease, nontraumatic; * Thoracic aortic dissection, follow up; Research Study; Paravisceral abdominal aortic aneurysm Additional clinical information: Patient with prior thoracoabdominal aortic dissection, DeBakey type I/Davidson type a dissection involving ascending aorta through thoracic and abdominal aorta down to the iliac level status post complex reconstruction including been demonstrated endovascular graft lateral displacement of multiple covered stents into branch vessels. Cortical embolization right brachiocephalic, subclavian arteries and branch vessels as well as splenic artery and left gastric artery in the abdomen. Follow-up imaging has shown endoleaks. Follow-up. TECHNIQUE: Multidetector-row CTA of the chest, abdomen and pelvis was performed before and after administration of intravenous contrast using tailored dose modulation techniques. Images were reconstructed in the axial, coronal, and sagittal planes, including angiographic image post-processing. COMPARISON: Multiple preceding CT angiography studies chest, abdomen and pelvis, most recently 12/20/2024, dating back to 09/01/2023. FINDINGS: VASCULAR: Aorta: Repeat imaging of sequela of type I DeBakey classification thoracoabdominal dissection. Ascending aortic repair and extensive endovascular treatment including fenestrated endograft and branch stents within multiple vessels off the aortic arch including innominate artery and left subclavian artery and both carotid arteries. Coil embolization of brachiocephalic artery and branch vessels including OLIVIA and thyrocervical trunk. Additional covered stenting celiac axis, SMA, both renal arteries and common, internal and external iliac arteries. Core embolization of the splenic artery and left gastric artery. Intact in to luminal enhancement of the aortic root, ascending thoracic aorta, aortic arch and descending thoracic aorta. Artifact from coils as well as scintigraphs make precise assessment of vessels challenging but there is intact enhancement of carotid arteries within the neck and subclavian arteries. Large aneurysm sac remains evident surrounding the aorta from level of the arch into the abdomen exhibiting intense enhancement within the lower chest, upper abdomen and pelvis that is revealed on series 4 2 minutes post initiation of contrast enhancement. As noted previously, potential site of endoleak is at the S2 level on the left. Enhancing vessel evident adjacent to stent which extends into left internal iliac artery Sinus of Valsalva: Normal in size. Not dilated. Sinotubular junction: Compared and stable. Ascending aorta: Stable. Arch: Stable. Descending thoracic aorta: Normal in size. Contrast extravasation: No phil extravasation. Pseudoaneurysm: Chronic sequela of dissection with periaortic aneurysm sac which opacifies with contrast on delayed sequences. Hematoma: Hemorrhage/chronic hematoma adjacent to the aortic arch, descending thoracic aorta and abdominal aorta. Coronary arteries: Patent. Brachiocephalic trunk: Normal. No stenosis, aneurysm, dissection, or occlusion. Right subclavian artery: Normal. No stenosis, aneurysm, dissection, or occlusion. Proximal segment of the left common carotid artery: Normal. No stenosis, aneurysm, dissection, or occlusion. Left subclavian artery: Normal. No stenosis, aneurysm, dissection, or occlusion. Visualized portions of celiac, SMA and renal arteries appear patent. Measurements are as follows (largest diameter short-axis to the centerline): Sinus of Valsalva: Right: 3.4 cm Left: 3.5 cm Non-coronary: 3.5 cm Sinotubular junction: 3.0 cm Ascending aorta: 2.8 cm Aortic arch: 5.3 x 6.4 cm diameter including adjacent hematoma which is not perfused (without persistent endoleak) Descending aorta: 8.3 x 8.5 cm Aortic measurements are stable in comparison with prior measurements from 12/20/2024. Upper abdominal aorta and lower aortic hiatus: 10.1 x 10.7 cm Juxta renal aorta 6.8 x 7.1 cm Distal abdominal aorta: 5.2 x 6.0 cm These readings are mildly increased from previous imaging with remeasurement on prior study to ensure same levels compared to prior measurements as follows: 9.3 x 10.3 cm, 5.8 x 7.0 cm and 4.6 x 5.2 cm. VEINS: No venous thrombosis. 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 NONVASCULAR: Devices/Tubes/Lines: None. Lungs: No lung mass or acute consolidation. Volume loss adjacent to expanded soft tissues adjacent to the aorta, particularly left lung. Linear opacities within the right lower lobe. Pleura: Stable bilateral posterior lower pleural reaction. Mediastinum: No acute abnormality. No mass or discrete, drainable collection. Lymph Nodes: Normal. No enlarged supraclavicular, axillary, mediastinal, or hilar lymph nodes. Chest Wall: Normal. No chest wall mass. Bones: Normal. No suspicious lytic or blastic lesions. ABDOMEN NONVASCULAR: Stable appearance to liver, spleen, pancreas, adrenal glands and kidneys. Bilateral renal irregularity and mild volume loss. Stable right kidney lower pole 9 mm cyst. No intestinal dilation or mural thickening. No ascites or focal fluid collection. No acute bony abnormality. IMPRESSION: 1. Re-imaging of type I DeBakey classification, type A Davidson classification aortic dissection and complex thoracic and abdominal reconstruction. 2. 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 3. Mild interval increase size of aneurysm sac within the abdomen. Narrative 06/11/2025 1:38 PM EDT Report of this study is available under the Accession Number: [id number]. Procedure Note Galindo Harris MD - 06/11/2025 Report of this study is available under the Accession Number: [id number]. us Paddy Maya MD IMG CT ABD/PELVIS E dited Result - Final * CT ANGIO CHEST WITH AND WITHOUT CONTRAST (05/02/2025 10:48 AM EDT) Anatomical Region Laterality Modality Chest, Thoracic Vasculature Comp uted Tomography 05/14/2025 3:40 PM EDT Impressions 05/14/2025 5:06 PM EDT 1. Re-imaging of type I DeBakey classification, type A Davidson classification aortic dissection and complex thoracic and abdominal reconstruction. 2. 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 3. Mild interval increase size of aneurysm sac within the abdomen. Narrative 05/14/2025 5:[address] ANGIO CHEST WITH AND WITHOUT CONTRAST Referring clinician's provided indication for this examination in Epic: * Aortic disease, nontraumatic; * Thoracic aortic dissection, follow up; Research Study; Paravisceral abdominal aortic aneurysm Additional clinical information: Patient with prior thoracoabdominal aortic dissection, DeBakey type I/Woodworth type a dissection involving ascending aorta through thoracic and abdominal aorta down to the iliac level status post complex reconstruction including been demonstrated endovascular graft lateral displacement of multiple covered stents into branch vessels. Cortical embolization right brachiocephalic, subclavian arteries and branch vessels as well as splenic artery and left gastric artery in the abdomen. Follow-up imaging has shown endoleaks. Follow-up. TECHNIQUE: Multidetector-row CTA of the chest, abdomen and pelvis was performed before and after administration of intravenous contrast using tailored dose modulation techniques. Images were reconstructed in the axial, coronal, and sagittal planes, including angiographic image post-processing. COMPARISON: Multiple preceding CT angiography studies chest, abdomen and pelvis, most recently 12/20/2024, dating back to 09/01/2023. FINDINGS: VASCULAR: Aorta: Repeat imaging of sequela of type I DeBakey classification thoracoabdominal dissection. Ascending aortic repair and extensive endovascular treatment including fenestrated endograft and branch stents within multiple vessels off the aortic arch including innominate artery and left subclavian artery and both carotid arteries. Coil embolization of brachiocephalic artery and branch vessels including OLIVIA and thyrocervical trunk. Additional covered stenting celiac axis, SMA, both renal arteries and common, internal and external iliac arteries. Core embolization of the splenic artery and left gastric artery. Intact in to luminal enhancement of the aortic root, ascending thoracic aorta, aortic arch and descending thoracic aorta. Artifact from coils as well as scintigraphs make precise assessment of vessels challenging but there is intact enhancement of carotid arteries within the neck and subclavian arteries. Large aneurysm sac remains evident surrounding the aorta from level of the arch into the abdomen exhibiting intense enhancement within the lower chest, upper abdomen and pelvis that is revealed on series 4 2 minutes post initiation of contrast enhancement. As noted previously, potential site of endoleak is at the S2 level on the left. Enhancing vessel evident adjacent to stent which extends into left internal iliac artery Sinus of Valsalva: Normal in size. Not dilated. Sinotubular junction: Compared and stable. Ascending aorta: Stable. Arch: Stable. Descending thoracic aorta: Normal in size. Contrast extravasation: No phil extravasation. Pseudoaneurysm: Chronic sequela of dissection with periaortic aneurysm sac which opacifies with contrast on delayed sequences. Hematoma: Hemorrhage/chronic hematoma adjacent to the aortic arch, descending thoracic aorta and abdominal aorta. Coronary arteries: Patent. Brachiocephalic trunk: Normal. No stenosis, aneurysm, dissection, or occlusion. Right subclavian artery: Normal. No stenosis, aneurysm, dissection, or occlusion. Proximal segment of the left common carotid artery: Normal. No stenosis, aneurysm, dissection, or occlusion. Left subclavian artery: Normal. No stenosis, aneurysm, dissection, or occlusion. Visualized portions of celiac, SMA and renal arteries appear patent. Measurements are as follows (largest diameter short-axis to the centerline): Sinus of Valsalva: Right: 3.4 cm Left: 3.5 cm Non-coronary: 3.5 cm Sinotubular junction: 3.0 cm Ascending aorta: 2.8 cm Aortic arch: 5.3 x 6.4 cm diameter including adjacent hematoma which is not perfused (without persistent endoleak) Descending aorta: 8.3 x 8.5 cm Aortic measurements are stable in comparison with prior measurements from 12/20/2024. Upper abdominal aorta and lower aortic hiatus: 10.1 x 10.7 cm Juxta renal aorta 6.8 x 7.1 cm Distal abdominal aorta: 5.2 x 6.0 cm These readings are mildly increased from previous imaging with remeasurement on prior study to ensure same levels compared to prior measurements as follows: 9.3 x 10.3 cm, 5.8 x 7.0 cm and 4.6 x 5.2 cm. VEINS: No venous thrombosis. 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 NONVASCULAR: Devices/Tubes/Lines: None. Lungs: No lung mass or acute consolidation. Volume loss adjacent to expanded soft tissues adjacent to the aorta, particularly left lung. Linear opacities within the right lower lobe. Pleura: Stable bilateral posterior lower pleural reaction. Mediastinum: No acute abnormality. No mass or discrete, drainable collection. Lymph Nodes: Normal. No enlarged supraclavicular, axillary, mediastinal, or hilar lymph nodes. Chest Wall: Normal. No chest wall mass. Bones: Normal. No suspicious lytic or blastic lesions. ABDOMEN NONVASCULAR: Stable appearance to liver, spleen, pancreas, adrenal glands and kidneys. Bilateral renal irregularity and mild volume loss. Stable right kidney lower pole 9 mm cyst. No intestinal dilation or mural thickening. No ascites or focal fluid collection. No acute bony abnormality. Procedure Note Galindo Harris MD - 05/14/2025 CT ANGIO CHEST WITH AND WITHOUT CONTRAST Referring clinician's provided indication for this examination in Epic: *Aortic disease, nontraumatic; * Thoracic aortic dissection, follow up;Research Study; Paravisceral abdominal aortic aneurysm Additional clinical information: Patient with prior thoracoabdominalaortic dissection, DeBakey type I/Woodworth type a dissection involvingascending aorta through thoracic and abdominal aorta down to the iliaclevel status post complex reconstruction including been demonstratedendovascular graft lateral displacement of multiple covered stents intobranch vessels. Cortical embolization right brachiocephalic, subclavianarteries and branch vessels as well as splenic artery and left gastricartery in the abdomen. Follow-up imaging has shown endoleaks. Follow-up. TECHNIQUE: Multidetector-row CTA of the chest, abdomen and pelvis wasperformed before and after administration of intravenous contrast usingtailored dose modulation techniques. Images were reconstructed in theaxial, coronal, and sagittal planes, including angiographic imagepost-processing. COMPARISON: Multiple preceding CT angiography studies chest, abdomen andpelvis, most recently 12/20/2024, dating back to 09/01/2023. FINDINGS: VASCULAR: Aorta: Repeat imaging of sequela of type I DeBakey classificationthoracoabdominal dissection. Ascending aortic repair and extensiveendovascular treatment including fenestrated endograft and branch stentswithin multiple vessels off the aortic arch including innominate arteryand left subclavian artery and both carotid arteries. Coil embolization ofbrachiocephalic artery and branch vessels including OLIVIA and thyrocervicaltrunk. Additional covered stenting celiac axis, SMA, both renal arteriesand common, internal and external iliac arteries. Core embolization of thesplenic artery and left gastric artery. Intact in to luminal enhancement of the aortic root, ascending thoracicaorta, aortic arch and descending thoracic aorta. Artifact from coils aswell as scintigraphs make precise assessment of vessels challenging butthere is intact enhancement of carotid arteries within the neck andsubclavian arteries. Large aneurysm sac remains evident surrounding the aorta from level of thearch into the abdomen exhibiting intense enhancement within the lowerchest, upper abdomen and pelvis that is revealed on series 4 2 minutespost initiation of contrast enhancement. As noted previously, potentialsite of endoleak is at the S2 level on the left. Enhancing vessel evidentadjacent to stent which extends into left internal iliac artery Sinus of Valsalva: Normal in size. Not dilated. Sinotubular junction: Compared and stable. Ascending aorta: Stable. Arch: Stable. Descending thoracic aorta: Normal in size. Contrast extravasation: No phil extravasation. Pseudoaneurysm: Chronic sequela of dissection with periaortic aneurysm sacwhich opacifies with contrast on delayed sequences. Hematoma: Hemorrhage/chronic hematoma adjacent to the aortic arch,descending thoracic aorta and abdominal aorta. Coronary arteries: Patent. Brachiocephalic trunk: Normal. No stenosis, aneurysm, dissection, orocclusion. Right subclavian artery: Normal. No stenosis, aneurysm, dissection, orocclusion. Proximal segment of the left common carotid artery: Normal. No stenosis,aneurysm, dissection, or occlusion. Left subclavian artery: Normal. No stenosis, aneurysm, dissection, orocclusion. Visualized portions of celiac, SMA and renal arteries appear patent. Measurements are as follows (largest diameter short-axis to thecenterline): Sinus of Valsalva: Right: 3.4 cm Left: 3.5 cm Non-coronary: 3.5 cm Sinotubular junction: 3.0 cm Ascending aorta: 2.8 cm Aortic arch: 5.3 x 6.4 cm diameter including adjacent hematoma which isnot perfused (without persistent endoleak) Descending aorta: 8.3 x 8.5 cm Aortic measurements are stable in comparison with prior measurements from12/20/2024. Upper abdominal aorta and lower aortic hiatus: 10.1 x 10.7 cm Juxta renal aorta 6.8 x 7.1 cm Distal abdominal aorta: 5.2 x 6.0 cm These readings are mildly increased from previous imaging withremeasurement on prior study to ensure same levels compared to priormeasurements as follows: 9.3 x 10.3 cm, 5.8 x 7.0 cm and 4.6 x 5.2 cm. VEINS: No venous thrombosis. Localized aneurysmal dilation of SMA just beyond covered stent lumenmeasuring 1.5 x 1.7 cm, previously measuring 1.6 x 1.7 cm. NONVASCULAR: Devices/Tubes/Lines: None. Lungs: No lung mass or acute consolidation. Volume loss adjacent toexpanded soft tissues adjacent to the aorta, particularly left lung.Linear opacities within the right lower lobe. Pleura: Stable bilateral posterior lower pleural reaction. Mediastinum: No acute abnormality. No mass or discrete, drainablecollection. Lymph Nodes: Normal. No enlarged supraclavicular, axillary, mediastinal,or hilar lymph nodes. Chest Wall: Normal. No chest wall mass. Bones: Normal. No suspicious lytic or blastic lesions. ABDOMEN NONVASCULAR: Stable appearance to liver, spleen, pancreas, adrenal glands and kidneys.Bilateral renal irregularity and mild volume loss. Stable right kidneylower pole 9 mm cyst. No intestinal dilation or mural thickening. Noascites or focal fluid collection. No acute bony abnormality. IMPRESSION: 1. Re-imaging of type I DeBakey classification, type A Stanfordclassification aortic dissection and complex thoracic and abdominalreconstruction. 2. Persistent endoleak perfusing aneurysm sac within the lower chest,abdomen and pelvis potentially arising from type II endoleak within leftinternal iliac system. 3. Mild interval increase size of aneurysm sac within the abdomen. us Paddy Maya MD IMG CT CHEST Fin al Result from Last 3 Months Insurance MEDICARE PART A & B MEDICARE PART A & B Member Subscriber Plan / Payer (Ef fective 2019-Present) Name:Alexander Morales Member ID:[id number] Relation to Subscriber:Self Name:Alexander Morales Subscriber ID:[id number] Payer ID:[id number] Group ID:Not on file Type:Medicare Address: [employer] [address] CARE MEDICARE REPLACEMENT [place] [id number] MEDICARE PART A & B [facility] CARE MEDICARE REPLACEMENT MEDICARE PART A & B CARE MEDICARE REPLACEMENT MEDICARE PART A & B CARE MEDICARE REPLACEMENT MEDICARE PART A & B MEDICARE REPLACEMENT MEDICARE PART A & B Member Subscriber Plan / Payer (Ef fective 2019-Present) Name:Alexander Morales Member ID:[id number] Relation to Subscriber:Self Name:Alexander Morales Subscriber ID:[id number] Payer ID:[id number] Group ID:Not on file Type:Medicare Address: [employer] 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 Healthcare Proxy 02/15/2022 6:05 PM * Full Code (Latest Code Status on File) Date Activated Date Inactivated Comments 10/29/2024 12:14 AM Question Answer Comments Code Status Confirmed With: Patient * Full Code Date Activated Date Inactivated Comments 09/05/2024 7:50 AM 10/29/2024 12:14 AM Question Answer Comments Code Status Confirmed With: Other (specify below ) Code Discussion Comments: Confirmed with surgica l team * Full Code Date Activated Date Inactivated Comments 01/02/2024 3:12 PM 09/05/2024 7:50 AM Question Answer Comments Code Status Confirmed With: Patient * Full Code Date Activated Date Inactivated Comments 02/19/2022 11:24 AM 01/02/2024 3:12 PM Question Answer Comments Code Status Confirmed With: Patient Healthcare Agents on File Name Relationship Healthcare Agent Relationship Communication Cyndi Morales Daughter .Primary Health Care Agent (Proxy form on file) Care Teams City Bus Driver Relationship Specialty Start Date End Date Osmel Zambrano PA-C PCP - General 02/22/22 Paddy Maya MD 55 [facility] [address] [place] [address] [email or web address] Vascular Surgery 08/03/22 Christina Rodriguez MBBS 55 [facility] [address] [place] [address] [email or web address] Thoracic Surgery 08/03/22 Cedric King MD [address] [place] [address] [address] [place] [address] Manager Home Improvement Cardiology 08/03/22 Enoch Jorge MD [address] [place] [address] [email or web address] 08/03/22 Laverne Lagos MD [address] [place] [address] [email or web address] Vascular Surgery 08/16/22 Additional Source Comments The information contained in this document represents components of the legal health record. It is not the complete legal health record.[facility]
--- OUTSIDE RECORDS SUMMARY | 2025-07-29 13:19 | XMS_ITS | Encounter Summary ---
Author Organization [facility] Address [address] [place] [address] Phone Care Team Providers Care Rn Paralegal Name Role Phone Osmel Zambrano PA-C Primary Care Provider Paddy Maya MD Unavailable [phone] Christina Rodriguez Unavailable [phone] Cedric King MD Unavailable [phone] Enoch Jorge MD Unavailable [phone] Laverne Lagos MD Unavailable [phone] Encounter Details Date Type Department Care Team (Late st Contact Info) Description 11/14/2023 Procedure Pass [facility] Cardiac US [address] [place] [address] Social History Tobacco Use Types Packs/Day Years [...] 09/23/2025 12:00 PM EST Blood Draw [facility] [address] [place] [address], 7th Floor, [address] [place] [address] Tristen Hamilton MD, DPHIL [address] [place] [id number] [email or web address] 09/23/2025 1:00 PM EST Office Visit [facility] [address] [place] [address], 7th Floor, [address] [place] [address] Tristen Hamilton MD, DPNHL [address] [place] [address] [email or web address]. du documented as of this encounter Visit Diagnoses Not on filedocumented in this encounter Additional Health Concerns Infection Onset Date Last Indicated Resolved Time MRSA Comment:Resolved from MRSA Infection Resolution Note 09/11/2022 09/09/2022 09/12/2024 10: 04 AM EST CoV-Risk Comment:Per note documentation 11/07/2024 11/07/2024 2:13 PM EDT documented as of this encounter Care Teams Rn Paralegal Relationship Specialty Start Date End Date Osmel Zambrano PA-C PCP - General 02/22/22 Paddy Maya MD [address] [address] [email or web address] Vascular Surgery 08/03/22 Christina Rodriguez MBBS 55 [facility] [address] [place] [address] CHAY@[email or web address] Thoracic Surgery 08/03/22 Cedric King MD [address] [place] [address] [address] [place] [address] It Trainer Cardiology 08/03/22 Enoch Jorge MD [address] [facility] [address] [place] [address] [email or web address] Nephrology 08/03/22 Laverne Lagos MD 55 [facility] [address] [place] [address] [email or web address] Vascular Surgery 08/16/22 documented as of this encounter Additional Source Comments The information contained in this document represents components of the legal health record. It is not the complete legal health record.[facility]
--- OUTSIDE RECORDS SUMMARY | 2025-07-29 13:19 | XMS_ITS | Encounter Summary ---
Author Organization [facility] Address [address] [place] [address] Phone Care Team Providers Care Briquette Machine Operator Name Role Phone Osmel Zambrano PA-C Primary Care Provider [phone] Paddy Maya MD Unavailable [phone] Christina Rodriguez Unavailable [phone] Cedric King MD Unavailable [phone] Enoch Jorge MD Unavailable [phone] Laverne Lagos MD Unavailable [phone] Reason for Visit * Reason Comments Medication Refill Encounter Details Date Type Department Care Team (Late st Contact Info) Description 05/04/2025 Refill [facility] Vascular Surgery [address] [place] [address], 4th Floor, [address] [place] [address] Navarro Velázquez MD, MSc [address] [address] [email or web address] Medication Refill Social History Tobacco Use Types [...] Description 09/23/2025 12:00 PM EST Blood Draw [facility] Center for Hematology [address] [facility], 7th Floor, [address] [place] [address] Tristen Hamilton MD, DPHIL [address] [place] [address] [email or web address] 09/23/2025 1:00 PM EST Office Visit [facility] Center for Hematology [address] [place] [address], 7th Floor, [address] [place] [address] Tristen Hamilton MD, DPHIL [address] [place] [address] JOSE@[email or web address]. du documented as of this encounter Visit Diagnoses Not on filedocumented in this encounter Care Teams Briquette Machine Operator Relationship Specialty Start Date End Date Osmel Zambrano PA-C PCP - General 02/22/22 Paddy Maya MD [address] [place] [address] [address] [place] [address] PAULINO@[email or web address] Vascular Surgery 08/03/22 Christina Rodriguez MBBS [address] [place] [address] [address] [place] [address] CHAY@[email or web address] Thoracic Surgery 08/03/22 Cedric King MD [address] [place] [address] [address] [place] [address] Trial Examiner Cardiology 08/03/22 Enoch Jorge MD [address] [place] [address] [email or web address] Nephrology 08/03/22 Laverne Lagos MD [address] [place] [address] [email or web address] Vascular Surgery 08/16/22 documented as of this encounter Additional Source Comments The information contained in this document represents components of the legal health record. It is not the complete legal health record.[facility]
--- OUTSIDE RECORDS SUMMARY | 2025-07-29 13:19 | XMS_ITS | Encounter Summary ---
Author Organization [facility] Address [address] [place] [address] Phone Care Team Providers Care Staff Nurse Anesthetist Name Role Phone Osmel Zambrano PA-C Primary Care Provider [phone] Paddy Maya MD Unavailable [phone] Christina Rodriguez Unavailable [phone] Cedric King MD Unavailable [phone] Enoch Jorge MD Unavailable [phone] Laverne Lagos MD Unavailable [phone] Encounter Details Date Type Department Care Team (Late st Contact Info) Description 11/10/2024 Procedure Pass [facility] CT, Abad [address] [facility], 2nd Floor, [address] [place] [address] Social History Tobacco Use Types Packs/Day Years [...] [facility] [place] [facility] [address] [facility], 7th Floor, [address] [place], [place] [id number] Tristen Hamilton MD, DPHIL [address] [place] [address] [place] [address] [email or web address] 09/23/2025 1:00 PM EST Office Visit [facility] Center for Hematology [address] [facility], 7th Floor, [address] [place] [address] Tristen Hamilton MD, DPHIL [address] [email or web address] du documented as of this encounter Visit Diagnoses Not on filedocumented in this encounter Care Teams Staff Nurse Anesthetist Relationship Specialty Start Date End Date Osmel Zambrano PA-C PCP - General 02/22/22 Paddy Maya MD [address] [place] [address] PAULINO@[email or web address] Vascular Surgery 08/03/22 Christina Rodriguez MBBS [address] [place] [address] CHAY@[email or web address] Thoracic Surgery 08/03/22 Cedric King MD [address] [place] [address] [address] [place] [address] Acupressurist Cardiology 08/03/22 Enoch Jorge MD [address] [place] [address] [email or web address] Nephrology 08/03/22 Laverne Lagos MD [address] [place] [address] [email or web address] Vascular Surgery 08/16/22 documented as of this encounter Additional Source Comments The information contained in this document represents components of the legal health record. It is not the complete legal health record.[facility]
--- OUTSIDE RECORDS SUMMARY | 2025-07-29 13:19 | XMS_ITS | Encounter Summary ---
Author Organization [facility] Address [address] [place] [address] Phone Care Team Providers Care Layout Worker Name Role Phone Osmel Zambrano PA-C Primary Care Provider [phone] Paddy Maya MD Unavailable +[phone] Christina Rodriguez Unavailable [phone] Cedric King MD Unavailable [phone] Enoch Jorge MD Unavailable [phone] Laverne Lagos MD Unavailable [phone] Reason for Visit * Reason Comments Medication Refill Encounter Details Date Type Department Care Team (Late st Contact Info) Description 05/08/2025 Refill [facility] V[facility] [address] [place] [address], 4th Floor, [address] [place] [address] Navarro Velázquez MD, MSc [address] [address] [email or web address] Medication Refill Social History Tobacco Use Types [...] [place] [facility] [address] [place] [address], 7th Floor, [address] [place] [address] Tristen Hamilton MD, DPHIL [address] [place] [address] JOSE@[email or web address]. [email or web address] 09/23/2025 1:00 PM EST Office Visit [facility] [address] [place] [address], 7th Floor, [address] [place] [address] Tristen Hamilton MD, DPHIL [address] [place] [address] JOSE@[facility]. [email or web address] documented as of this encounter Visit Diagnoses Not on filedocumented in this encounter Care Teams Layout Worker Relationship Specialty Start Date End Date Osmel Zambrano PA-C PCP - General 02/22/22 Paddy Maya MD [address] [place] [address] 440 [place] [address] PAULINO@[email or web address] Vascular Surgery 08/03/22 Christina Rodriguez MBBS [address] [place] [address] 652 [place] [address] CHAY@[email or web address] Thoracic Surgery 08/03/22 Cedric King MD [address] [place] [address] [address] [place] [address] Textile Engraver Cardiology 08/03/22 Enoch Jorge MD [address] [place] [address] [email or web address] Nephrology 08/03/22 Laverne Lagos MD [address] [place] [address] FRED@[email or web address] Vascular Surgery 08/16/22 documented as of this encounter Additional Source Comments The information contained in this document represents components of the legal health record. It is not the complete legal health record.[facility]
--- OUTSIDE RECORDS SUMMARY | 2025-07-29 13:19 | XMS_ITS | Encounter Summary ---
Author Organization [facility] Address [address] [place] [address] Phone Care Team Providers Care Tip Stretcher Name Role Phone Osmel Zambrano PA-C Primary Care Provider Paddy Maya MD Unavailable [phone] Christina Rodriguez Unavailable [phone] Cedric King MD Unavailable [phone] Enoch Jorge MD Unavailable [phone] Laverne Lagos MD Unavailable [phone] Encounter Details Date Type Department Care Team (Late st Contact Info) Description 11/08/2024 Procedure Pass [facility] Imaging - Peripoerative Interventional Radiology [address] [place] [address], 4th [place] [address] Social History Tobacco Use Types Packs/Day Years [...] Description 09/23/2025 12:00 PM EST Blood Draw [facility] Center for Hematology [address] [facility], 7th Floor, [address] [place], [place] [phone] Tristen Hamilton MD, DPHIL [address] [place] [address] [place] [address] [email or web address] 09/23/2025 1:00 PM EST Office Visit [facility] Center for Hematology [address] [facility] [address], 7th Floor, [address] [place] [address] Tristen Hamilton MD, DPHIL [address] JOSE@[email or web address] du documented as of this encounter Visit Diagnoses Not on filedocumented in this encounter Care Teams Tip Stretcher Relationship Specialty Start Date End Date Osmel Zambrano PA-C PCP - General 02/22/22 Paddy Maya MD [address] [place] [address] PAULINO@[email or web address] Vascular Surgery 08/03/22 Christina Rodriguez MBBS [address] [place] [address] CHAY@[email or web address] Thoracic Surgery 08/03/22 Cedric King MD [address] [place] [address] [address] [place] [address] Human Resources Executive Assistant Cardiology 08/03/22 Enoch Jorge MD [address] [place] [address] [email or web address] Nephrology 08/03/22 Laverne Lagos MD [address] [place] [address] FRED@[email or web address] Vascular Surgery 08/16/22 documented as of this encounter Additional Source Comments The information contained in this document represents components of the legal health record. It is not the complete legal health record.[facility]
--- OUTSIDE RECORDS SUMMARY | 2025-07-29 13:19 | XMS_ITS | Encounter Summary ---
Author Organization [facility] Address [address] [place] [address] Phone Care Team Providers Care Bottle Caser Name Role Phone Osmel Zambrano PA-C Primary Care Provider [phone] Paddy Maya MD Unavailable [phone] Christina Rodriguez Unavailable [phone] Cedric King MD Unavailable [phone] Enoch Jorge MD Unavailable [phone] Laverne Lagos MD Unavailable [phone] Encounter Details Date Type Department Care Team (Late st Contact Info) Description 11/15/[address] [facility] PERIOPERATIVE DEPT [address] [place] [phone] Social History Tobacco Use Types Packs/Day Years [...] Description 09/23/2025 12:[address] [facility] Center for Hematology 32 [facility], 7th Floor, [address] [place] [address] Tristen Hamilton MD, DPHIL [address] [place] [address] [email or web address] nazario 09/23/2025 1:00 PM EST Office Visit [facility] Center for Hematology 32 [facility], 7th Floor, [address] [place], [place] [phone] Tristen Hamilton MD, DPHIL [address] [place], [place] JOSE@[facility]. nazario documented as of this encounter Visit Diagnoses Not on filedocumented in this encounter Care Teams Bottle Caser Relationship Specialty Start Date End Date Osmel Zambrano PA-C PCP - General 02/22/22 Paddy Maya MD [address] [place] [address] PAULINO@[email or web address] Vascular Surgery 08/03/22 Christina Rodriguez MBBS [address] [place] [address] 652 [place] [address] CHAY@[facility] Thoracic Surgery 08/03/22 Cedric King MD [address] [place] [address] [address] [place] [address] Supply Coordinator Cardiology 08/03/22 Enoch Jorge MD [address] [place] [address] [email or web address] Nephrology 08/03/22 Laverne Lagos MD [address] [place] [address] [email or web address]@[email or web address] Vascular Surgery 08/16/22 documented as of this encounter Additional Source Comments The information contained in this document represents components of the legal health record. It is not the complete legal health record.[facility]
--- OUTSIDE RECORDS SUMMARY | 2025-07-29 13:19 | XMS_ITS | Encounter Summary ---
Author Organization [facility] Address [address] [address] [place] [address] Phone Care Team Providers Care Manager Administrative Services Name Role Phone Osmel Zambrano PA-C Primary Care Provider [phone] Paddy Maya MD Unavailable [phone] Christina Rodriguez Unavailable [phone] Cedric King MD Unavailable [phone] Enoch Jorge MD Unavailable [phone] Laverne Lagos MD Unavailable [phone] Encounter Details Date Type Department Care Team (Late st Contact Info) Description 08/21/2024 Procedure Pass [facility] [place] [address] [facility], 6th [place] [address] Social History Tobacco Use Types Packs/Day Years [...] Description 09/23/2025 12:00 PM EST Blood Draw [facility] Center for Hematology [address] [place] [address], [facility] Floor, [address] [place] [address] Tristen Hamilton MD, DPHIL [address] [place] [address] JOSE@[email or web address] nazario 09/23/2025 1:00 PM EST Office Visit [facility] Center for Hematology [address] [place] [address], 7th Floor, [address] [place] [address] Tristen Hamilton MD, DPHIL [address] [place] [address] JOSE@[email or web address]. nazario documented as of this encounter Visit Diagnoses Not on filedocumented in this encounter Additional Health Concerns Infection Onset Date Last Indicated Resolved Time MRSA Comment:Resolved from MRSA Infection Resolution Note 09/11/2022 09/09/2022 09/12/2024 10: 04 AM EST CoV-Risk Comment:Per note documentation 11/07/2024 11/07/2024 03/27/202 5 2:13 PM EDT documented as of this encounter Care Teams Manager Administrative Services Relationship Specialty Start Date End Date Osmel Zambrano PA-C PCP - General 02/22/22 Paddy Maya MD 55 [facility] 440 [place] [address] PAULINO@[email or web address] Vascular Surgery 08/03/22 Christina Rodriguez MBBS [address] [place] [address] 652 [place] [address] CHAY@[facility] Thoracic Surgery 08/03/22 Cedric King MD [address] [place] [address] [address] [place] [address] Car Inspector Cardiology 08/03/22 Enoch Jorge MD 100 [facility] Fina [facility] 200 [place] [address] [email or web address] Nephrology 08/03/22 Laverne Lagos MD [address] [place] [address] FRED@[email or web address] Vascular Surgery 08/16/22 documented as of this encounter Additional Source Comments The information contained in this document represents components of the legal health record. It is not the complete legal health record.[facility]
--- OUTSIDE RECORDS SUMMARY | 2025-07-29 13:19 | XMS_ITS | Encounter Summary ---
Author Organization [facility] Address [address] [place] [address] Phone Care Team Providers Care Canal Equipment Maintenance Supervisor Name Role Phone Osmel Zambrano PA-C Primary Care Provider [phone] Paddy Maya MD Unavailable [phone] Christina Rodriguez Unavailable [phone] Cedric King MD Unavailable [phone] Enoch Jorge MD Unavailable [phone] Laverne Lagos MD Unavailable [phone] Encounter Details Date Type Department Care Team (Late st Contact Info) Description 08/23/2023 Procedure Pass [facility], [address] [facility], 2nd Floor, [address] [place] [address] Social History Tobacco Use Types Packs/Day Years [...] [facility] Center for Hematology [address] [place] [address], 7th Floor, [address] [place] [address] Tristen Hamilton MD, DPAZL [address] [place] [address] JOSE@[email or web address]. nazario 09/23/2025 1:00 PM EST Office Visit [facility] Center for Hematology [address] [place] [address], 7th Floor, [address] [place] [address] Tristen Hamilton MD, DPAZL [address] [place] [address] JOSE@[email or web address]. nazario documented as of this encounter Visit Diagnoses Not on filedocumented in this encounter Additional Health Concerns Infection Onset Date Last Indicated Resolved Time MRSA Comment:Resolved from MRSA Infection Resolution Note 09/11/2022 09/09/2022 09/12/2024 10: 04 AM EST CoV-Risk Comment:Per note documentation 11/07/2024 11/07/2024 2:13 PM EDT documented as of this encounter Care Teams Canal Equipment Maintenance Supervisor Relationship Specialty Start Date End Date Osmel Zambrano PA-C PCP - General 02/22/22 Paddy Maya MD 55 [facility] 440 [place] [address] PAULINO@[email or web address] Vascular Surgery 08/03/22 Christina Rodriguez MBBS 55 [facility] 652 [place] [address] CHAY@[email or web address] Thoracic Surgery 08/03/22 Cedric King MD [address] [place] [address] [address] [place] [address] Mold Injector Cardiology 08/03/22 Enoch Jorge MD [address] [facility] [address] [place] [address] [email or web address] Nephrology 08/03/22 Laverne Lagos MD 55 [facility] 440 [place] [address] FRED@[email or web address] Vascular Surgery 08/16/22 documented as of this encounter Additional Source Comments The information contained in this document represents components of the legal health record. It is not the complete legal health record.[facility]
--- OUTSIDE RECORDS SUMMARY | 2025-07-29 13:19 | XMS_ITS | Encounter Summary ---
Author Organization [facility] Address [address] [facility] [address] [place] [address] Phone Care Team Providers Care Cheese Production Supervisor Name Role Phone Osmel Zambrano PA-C Primary Care Provider Paddy Maya MD Unavailable +[phone] Christina Rodriguez Unavailable [phone] Cedric King MD Unavailable [phone] Enoch Jorge MD Unavailable [phone] Laverne Lagos MD Unavailable +[phone] Encounter Details Date Type Department Care Team (Late st Contact Info) Description 03/19/2025 Procedure Pass [facility] [place] 32 [facility], 6th [place] [address] Social History Tobacco Use Types Packs/Day Years [...] Description 09/23/2025 12:00 PM EST Blood Draw [facility] 32 [facility], 7th Floor, [address] [place] [address] Tristen Hamilton MD, DPHIL [address] [email or web address] 09/23/2025 1:00 PM EST Office Visit [facility] 32 [facility], 7th Floor, [address] [place], [place] [phone] Tristen Hamilton MD, DPHIL [address] [place] [address] JOSE@[email or web address] du documented as of this encounter Visit Diagnoses Not on filedocumented in this encounter Care Teams Cheese Production Supervisor Relationship Specialty Start Date End Date Osmel Zambrano PA-C PCP - General 02/22/22 Paddy Maya MD [address] [place] [address] PAULINO@[email or web address] Vascular Surgery 08/03/22 Christina Rodriguez MBBS [address] [place] [address] 652 [place] [address] CHAY@[facility] Thoracic Surgery 08/03/22 Cedric King MD [address] [place] [address] [address] [place] [address] Street Vendor Cardiology 08/03/22 Enoch Jorge MD [address] [place] [address] [email or web address] Nephrology 08/03/22 Laverne Lagos MD [address] [place] [address] FRED@[email or web address] Vascular Surgery 08/16/22 documented as of this encounter Additional Source Comments The information contained in this document represents components of the legal health record. It is not the complete legal health record.[facility]
[2025-07-29 15:20] LABS: Prostate Specific Antigen 3.67 ng/mL (<0.05-4.0)
== END 2025-07-29 10:32 | disposition home or self-care (01) ==
LOC: HO.10HDL 10:31
PROVIDERS: Visit Provider Nurse Practitioner Family
DX: Z12.5 Encounter for screening for malignant neoplasm of prostate (principal); N52.9 Male erectile dysfunction, unspecified; R39.15 Urgency of urination; R35.1 Nocturia
CPT/HCPCS: 36415; 84153; 84402; 84403